=== PATIENT | female | born 2000 | race Caucasian/White ===

== ENCOUNTER 2021-01-12 01:10 | Emergency (ER) | payer OTHER, SELFPAY ==
--- NOTE | ~2021-01-12 | US_ITS ---
EXAMINATION: US pelvic complete w TV EXAM DATE: 01/12/2021 05:03 INDICATION: Right adnexal pain, r/o torsion pelvic pain . TECHNIQUE: Pelvic transabdominal and transvaginal sonogram was performed. There are multiple graysca le and Doppler images available for interpretation. Correlation is made to CT abdomen pelvis same pepito e. FINDINGS: Uterus measures 8.1 x 8.2 x 4.9 cm, is anteverted and morphologically normal. Endometrial stripe measures 7 mm, within normal limits. There is no free pelvic fluid. Right adnexa: The ovary measures 3.6 x 5.3 x 3.7 cm, with a complex cystic hypoechoic lesion without vascularity demonstrated measuring 3.4 x 3.4 x 3.3 cm, appearance most consistent with hemorrhagic cy st. Ovarian vascular flow confirmed. Left adnexa: The ovary measures 2.1 x 1.4 x 2.0 cm and is morphologically normal. Ovarian vascular fl ow confirmed. IMPRESSION: Complex cystic right ovarian lesion, most likely hemorrhagic cyst. Reviewed, dictated and finalized at location A. PAINTER
--- NOTE | ~2021-01-12 | CT_ITS ---
EXAMINATION: CT abdomen pelvis w con EXAM DATE: 01/12/2021 02:55 INDICATION: RLQ pain . TECHNIQUE: Spiral CT of the abdomen and pelvis was performed following intravenous injection of 100 m L Omnipaque 350. Axial, coronal and sagittal images were reviewed. The dose-length product (DLP) fo r this examination was 168.45 mGy-cm. The exposure was tailored according to patient size (auto mA e xposure control), and iterative reconstruction (ASIR) was used as additional dose reduction technique . There is no prior study for comparison. FINDINGS: There is mild nonspecific periportal edema, consider correlating with liver enzymes. The l iver, spleen, adrenal glands and pancreas are otherwise unremarkable. Gallbladder is unremarkable. No biliary obstruction. Portal and splenic veins are patent. Kidneys enhance symmetrically. There is no hydronephrosis. The uterus is anteverted and morphologically normal. There is a right ovarian 4 cm hypoechoic cystic lesion, statistically most likely hemorrhagic cyst. Consider follow-up pelvic sonogram. Small free pelvic fluid. The bladder is unremarkable. There is no retroperitoneal or pelv ic lymphadenopathy. The appendix is normal. The stomach and small bowel are unremarkable. There is moderate amount of c olonic stool. No free intraperitoneal gas. The heart is normal in size. There are no pericardial or pleural effusions. The lung bases are unremarkable. There are no significant osseous abnormalit ies identified. IMPRESSION: 1. Right ovarian 4 cm cystic lesion statistically most likely hemorrhagic cyst. Consider follow-up p elvic sonogram in 6 weeks. 2. Normal appendix. Reviewed, dictated and finalized at location A. ANICAL FIELD ENGINEER IMPRESSION: 1. Right ovarian 4 cm cystic lesion statistically most likely hemorrhagic cyst . Consider follow-up pelvic sonogram in 6 weeks. 2. Normal appendix.
[2021-01-12 01:25] VITALS: BP 114/69; PULSE 82; RESP 16; TEMP 36.7; O2SAT 100
[2021-01-12] MEDS: SODIUM CHLORIDE 0.9% IV 1,000 ML 999 ML IV CONT (02:06)
[2021-01-12] MEDS: MORPHINE SULFATE (*CRX) 4 MG/ML INJ IV PUSH (02:06)
[2021-01-12] MEDS: ONDANSETRON INJ 4 MG/2 ML VIAL IV PUSH (02:06)
[2021-01-12 02:30] VITALS: BP 91/55; PULSE 68; RESP 16; O2SAT 100
[2021-01-12 02:30] LABS: Basophils Absolute Auto 0.1 K/mm3 (0.0-0.1); Basophils Percent Auto 0.7 % (0.2-1.2); Eosinophils Absolute Auto 0.2 K/mm3 (0-0.3); Eosinophils Percent Auto 2.7 % (0-4.4); Hematocrit 40.9 % (37.0-47.0); Hemoglobin 13.5 g/dL (12.0-15.0); Immature Granulocyte Absolute 0.02 K/mm3 (0.00-0.031); Immature Granulocyte Percent A 0.3 % (0-0.5); Lymphocytes Absolute Auto 2.85 K/mm3 (0.9-3.2); Mean Corpuscular Hemoglobin 30.4 pg (26-34); Mean Corpuscular Volume 92.1 fl (80-100); Mean Platelet Volume 10.9 fl (7.4-10.4); Monocytes Absolute Auto 0.8 K/mm3 (0.1-0.6); Monocytes Percent Auto 11.4 % (2.6-8.5); Neutrophils Absolute Auto 2.9 K/mm3 (1.3-6.7); Neutrophils Percent Auto 42.9 % (45.5-73.1); Platelet Count Result 234 k/mm3 (150-375); Red Blood Count 4.44 M/mm3 (4.2-5.4); Red Cell Distribution Width 12.1 % (11.5-14.5); White Blood Count 6.8 K/mm3 (4.5-10.0)
[2021-01-12 02:32] LABS: Add Urine Microscopic? NO; Appearance Urine Clear (Clear); Bilirubin Urine Negative (Negative); Blood Urine Negative (Negative); Color Urine Straw (Yellow); Glucose Urine UA Negative (Negative); Ketones Urine Negative (Negative); Leukocyte Esterase Ur Negative LEU/UL (Negative); Nitrate Urine Negative (Negative); Protein Urine Negative (Negative); Specific Grav Ur 1.009 (1.001-1.035); Urobilinogen Urine Negative mg/dL (<2.0)
[2021-01-12 02:35] LABS: Anion Gap 4 mmol/L (8-16); Blood Urea Nitrogen 12 mg/dL (8-21); Calcium 9.3 mg/dL (8.9-10.7); Carbon Dioxide 28 mmol/L (22-30); Chloride 105 mmol/L (98-107); Estimated CRCL calculation 93 ml/min; Estimated Glomerular Filt Rate > 60; Glucose 80 mg/dL (65-105); Potassium 3.8 mmol/L (3.4-5.0); Sodium 137 mmol/L (134-143)
[2021-01-12 03:00] VITALS: BP 103/64; PULSE 75; RESP 16; O2SAT 100
[2021-01-12 04:00] VITALS: BP 102/60; PULSE 88; RESP 16; O2SAT 100
[2021-01-12 05:00] VITALS: BP 108/71; PULSE 98; RESP 16; O2SAT 78
--- NOTE | 2021-01-12 05:27 | ED.GENADULT ---
HPI - General Adult General Chief complaint: Abdominal Pain Stated complaint: abd pain Time Seen by Provider: 01/12/21 01:30 History of Present Illness HPI narrative: Patient is a 20-year-old female who presents ER with right lower quadrant pain. Increasing over the last couple days. Worse with any type of movement this time especially with lying down and twisting. Worse with sexual activity. No vaginal discharge or bleeding. No nausea or vomiting. No radiation of the pain. Patient reports she does have history of ovarian cysts but this feels more intense. No diarrhea. Related Data Allergies Allergy/AdvReac Type Severity Reaction Status Date / Time amoxicillin Allergy Unknown Verified 03/04/17 19:55 Sulfa (Sulfonamide Allergy Unknown Verified 03/04/17 19:55 Antibiotics) Review of Systems Review of Systems: All systems reviewed & are unremarkable except as noted in HPI and below Constitutional: Constitutional: Denies chills, Denies fever(s) and Denies weakness ENT: Denies nasal congestion and Denies sore throat Cardiovascular: Cardiovascular: Denies chest pain, Denies rapid heart rate and Denies radiating jaw, neck or arm pain Respiratory: Respiratory: Denies cough and Denies dyspnea Gastrointestinal: Gastrointestinal: Reports abdominal pain, Denies diarrhea, Denies nausea and Denies vomiting Genitourinary: Genitourinary: Denies abnormal vaginal bleeding, Denies dysuria and Denies urinary incontinence PMFSH Past Medical History Medical History (Updated 01/12/21 @ 06:11 by Jasvir Nesbitt MD) Anxiety Depression Ovarian cyst Surgical History Surgical History (Updated 01/12/21 @ 05:32 by Jasvir Nesbitt MD) No pertinent past surgical history Social History Social History (Updated 01/12/21 @ 05:32 by Jasvir Nesbitt MD) Smoking status: Never smoker Exam Narrative: Exam Narrative: GENERAL: Uncomfortable-appearing, well-nourished, and in no acute distress. HEAD: Normocephalic, atraumatic. ENT: Mucous membranes moist. CHEST: Clear to auscultation. No respiratory distress. HEART: Regular rate and rhythm. Normal peripheral pulses. ABDOMEN: Soft, right lower quadrant tenderness with guarding seems closer to McBurney's point than the pelvis, nondistended, normal active bowel sounds. EXTREMITIES: Normal range of motion. No edema. SKIN: Warm, dry, no rash. NEURO: Alert and oriented x3. Course Course Emergency Course: Patient informed results. Discharge home with pain control. 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 Vital Signs Vital signs: Vital Signs Temperature 98.1 F 01/12/21 01:25 Pulse Rate 82 01/12/21 01:25 Respiratory Rate 16 01/12/21 01:25 Blood Pressure 114/69 01/12/21 01:25 Pulse Oximetry 100 01/12/21 01:25 Temperature 98.1 F 01/12/21 01:25 Pulse Rate 98 01/12/21 05:00 Respiratory Rate 16 01/12/21 05:00 Blood Pressure 108/71 01/12/21 05:00 Pulse Oximetry 78 L 01/12/21 05:00 Medical Decision Making Vital Signs Vital Signs: Vital Signs Temperature 98.1 F 01/12/21 01:25 Pulse Rate 82 01/12/21 01:25 Respiratory Rate 16 01/12/21 01:25 Blood Pressure 114/69 01/12/21 01:25 Pulse Oximetry 100 01/12/21 01:25 Temperature 98.1 F 01/12/21 01:25 Pulse Rate 98 01/12/21 05:00 Respiratory Rate 16 01/12/21 05:00 Blood Pressure 108/71 01/12/21 05:00 Pulse Oximetry 78 L 01/12/21 05:00 Lab Data Result diagrams: 01/12/21 02:03 01/12/21 02:03 Labs: Lab Results 01/12/21 01/12/21 01/12/21 Range/Units 02:03 02:03 02:03 WBC 6.8 (4.5-10.0) K/mm3 RBC 4.44 (4.2-5.4) M/mm3 Hgb 13.5 (12.0-15.0) g/dL Hct 40.9 (37.0-47.0) % MCV 92.1 (80-100) fl MCH 30.4 (26-34) pg MCHC 33.0 (32-36) g/dl RDW 12.1 (11.5-14.5) % Plt Count 234 (150-375) k/mm3 MPV 10.9 H (7.4-10.4) fl Immature Gran % (Auto) 0.3 (0-0.5) % Neut % (Auto) 42.9 L (45.5-73
[2021-01-12 06:21] VITALS: BP 106/64; PULSE 71; RESP 16; TEMP 36.7; O2SAT 99
== END 2021-01-12 06:22 | disposition home or self-care (01) ==
PROVIDERS: Emergency Provider Emergency Medicine; PCP Pediatrics
DX: N83.201 Unspecified ovarian cyst, right side (principal)
CPT/HCPCS: 36415; 74177; 76830; 76856; 80048; 81003; 81025; 85025; 96361; 96374; 96375; 99284; J2270; J2405; J7030; Q9967

== ENCOUNTER 2021-05-23 23:50 | Emergency (ER) | payer OTHER, SELFPAY ==
--- NOTE | ~2021-05-23 | CT_ITS ---
EXAMINATION: CT abdomen pelvis w con DATE: 05/24/2021 01:21 INDICATION: Left flank pain. Left lower quadrant abdominal pain. TECHNIQUE: Computed tomography (CT) of the abdomen and pelvis was performed with 100 mL Omnipaque 350 intravenous contrast. Automated exposure control and iterative reconstruction technique were employe d. The dose-length product was 177.71 mGy-cm. COMPARISON: CT abdomen and pelvis 01/12/2021 FINDINGS: The visualized portions of the lung bases are clear without pneumonia or pleural effusion. The heart size is normal. No pericardial effusion. The liver, gallbladder, spleen, pancreas, adrenal glands, and kidneys are normal. There are no dilated loops of bowel. There are phleboliths in the luis endix, which is normal in size. There are no pathologically enlarged lymph nodes. There is physiologi c fluid in the pelvis. The bones are unremarkable. IMPRESSION: 1. No etiology for the patient's symptoms. Reviewed, dictated and finalized at location A.
[2021-05-24 00:27] VITALS: BP 105/68; PULSE 68; RESP 18; TEMP 36.7; O2SAT 100
--- NOTE | 2021-05-24 00:39 | ED.ABDPAIN ---
HPI - Abdominal Pain General Chief Complaint: Abdominal Pain Stated Complaint: tightness and sharp pain L Q to back Time Seen by Provider: 05/24/21 00:38 History of Present Illness HPI narrative: Diffuse left flank and abdominal pain for the past 2 days. Feels like cramping. Constant. Associated with nausea. She has a h/o of abdominal pain attributed to gas. She thought this was the same, but it has been worse and more persistent. Additionally she does report urinary frequency. She was seen here 4 months ago and diagnosed with ovarian cyst. Recent follow-up US was negative. Related Data Allergies Allergy/AdvReac Type Severity Reaction Status Date / Time amoxicillin Allergy Unknown Other Verified 05/24/21 00:38 Sulfa (Sulfonamide Allergy Unknown Other Verified 05/24/21 00:38 Antibiotics) Review of Systems Review of Systems: All systems reviewed & are unremarkable except as noted in HPI and below Constitutional: Constitutional: Denies fever(s) Cardiovascular: Cardiovascular: Denies chest pain Respiratory: Respiratory: Denies dyspnea Gastrointestinal: Gastrointestinal: Reports as per HPI Genitourinary: Genitourinary: Denies abnormal vaginal bleeding and Denies vaginal discharge Musculoskeletal: Musculoskeletal: Denies back pain Neurologic: Reports system reviewed and no additional complaints, except as documented Psychiatric: Psychiatric: Reports anxiety [facility] Past Medical History Medical History Anxiety Depression Ovarian cyst Surgical History Surgical History No pertinent past surgical history Social History Social History Smoking status: Never smoker Exam Const: General: no acute distress Orientation/consciousness: patient oriented x3 HENMT: Head: normal to inspection Neck: Neck: normal visual inspection Resp: Effort & Inspection: normal respiratory effort Auscultation: clear to auscultation bilaterally, no rales, no rhonchi and no wheezes Cardio: Jugular venous distension: no JVD Rate: regular rate Rhythm: regular rhythm Heart sounds: no murmurs GI: Inspection: non-distended GI Palp: Yes Soft to palpation, Yes Tenderness to palpation present (GI) (LLQ), No Guarding due to palpation present (GI), No Palpable mass present and No Rebound tenderness present Skin: General skin exam: normal color Neuro: General: patient oriented x3 and moves all extremities Speech: normal speech Extrem: General: no edema Psych: Appearance: well kempt Affect: Anxious affect present Course Vital Signs Vital signs: Vital Signs Temperature 36.7 C 05/24/21 00:27 Pulse Rate 68 05/24/21 00:27 Respiratory Rate 18 05/24/21 00:27 Blood Pressure 105/68 05/24/21 00:27 Pulse Oximetry 100 05/24/21 00:27 Temperature 36.7 C 05/24/21 00:27 Pulse Rate 98 05/24/21 01:50 Respiratory Rate 18 05/24/21 01:50 Blood Pressure 110/74 05/24/21 01:50 Pulse Oximetry 100 05/24/21 01:50 MDM - Abdominal Pain MDM Narrative Medical decision making narrative: UA contaminated, but given high number of cells could likely represent infection. Given history IBS is also a strong possibility. dicyclomine did seem to help. Differential Diagnosis Differential diagnosis: Likely calculus of kidney, constipation, pancreatitis and other (UTI/pyelo) Medical Records Attestation: I reviewed the patient's medical records. Lab Data Attestation: I reviewed the patient's lab results. Result diagrams: 05/24/21 00:41 05/24/21 00:41 Labs: Lab Results 05/24/21 05/24/21 05/24/21 Range/Units 00:41 00:41 00:42 WBC 10.4 H (4.5-10.0) K/mm3 RBC 4.58 (4.2-5.4) M/mm3 Hgb 13.9 (12.0-15.0) g/dL Hct 42.9 (37.0-47.0) % MCV 93.7 (80-100) fl MCH 30.3 (26-34) pg MCHC 32.4 (32-36) g/d
[2021-05-24 00:49] LABS: Basophils Percent Auto 0.4 % (0.2-1.2); Eosinophils Absolute Auto 0.1 K/mm3 (0-0.3); Hematocrit 42.9 % (37.0-47.0); Hemoglobin 13.9 g/dL (12.0-15.0); Immature Granulocyte Absolute 0.04 K/mm3 (0.00-0.031); Immature Granulocyte Percent A 0.4 % (0-0.5); Lymphocytes Absolute Auto 2.16 K/mm3 (0.9-3.2); Lymphocytes Percent Auto 20.8 % (18.3-44.2); Mean Corpuscular HGB Conc 32.4 g/dl (32-36); Mean Corpuscular Hemoglobin 30.3 pg (26-34); Mean Corpuscular Volume 93.7 fl (80-100); Mean Platelet Volume 10.6 fl (7.4-10.4); Monocytes Absolute Auto 0.7 K/mm3 (0.1-0.6); Monocytes Percent Auto 6.6 % (2.6-8.5); Neutrophils Absolute Auto 7.4 K/mm3 (1.3-6.7); Neutrophils Percent Auto 70.8 % (45.5-73.1); Platelet Count Result 255 k/mm3 (150-375); Red Blood Count 4.58 M/mm3 (4.2-5.4); Red Cell Distribution Width 12.1 % (11.5-14.5); White Blood Count 10.4 K/mm3 (4.5-10.0)
[2021-05-24 00:56] LABS: Add Urine Microscopic? YES; Appearance Urine Cloudy (Clear); Bacteria Urine Trace /hpf; Bilirubin Urine Negative (Negative); Blood Urine 2+ (Negative); Color Urine Yellow (Yellow); Glucose Urine UA Negative (Negative); Ketones Urine Negative (Negative); Leukocyte Esterase Ur 3+ LEU/UL (Negative); Mucus Urine Rare /lpf; Nitrate Urine Negative (Negative); Protein Urine 2+ mg/dL (Negative); RBC Urine 51-75 /hpf (0-2); Specific Grav Ur 1.005 (1.001-1.035); Squamous Epithelial Cell Urine Moderate /hpf (Few); Urobilinogen Urine Negative mg/dL (<2.0); WBC Clumps Urine Present /HPF; WBC Urine >75 /hpf
[2021-05-24 00:58] LABS: Alanine Aminotransferase 14 U/L (4-35); Albumin Level 4.5 g/dL (3.7-5.6); Alkaline Phosphatase 58 U/L (45-116); Anion Gap 9 mmol/L (8-16); Aspartate Amino Transferase 22 U/L (14-36); Bilirubin,Total 0.7 mg/dL (0.2-1.3); Blood Urea Nitrogen 6 mg/dL (8-21); Calcium 9.6 mg/dL (8.9-10.7); Carbon Dioxide 27 mmol/L (22-30); Chloride 103 mmol/L (98-107); Estimated CRCL calculation 91 ml/min; Estimated Glomerular Filt Rate > 60; Glucose 95 mg/dL (65-105); Lipase 53 U/L (23-300); Potassium 3.6 mmol/L (3.4-5.0); Sodium 139 mmol/L (134-143)
[2021-05-24] MEDS: DICYCLOMINE HCL INJ 20 MG/2 ML VIAL IM (01:06)
[2021-05-24] MEDS: SODIUM CHLORIDE 0.9% IV 1,000 ML 999 ML IV CONT (01:06)
[2021-05-24 01:50] VITALS: BP 110/74; PULSE 98; RESP 18; O2SAT 100
== END 2021-05-24 03:37 | disposition home or self-care (01) ==
PROVIDERS: Emergency Medicine; Emergency Provider Emergency Medicine; PCP Pediatrics
DX: N39.0 Urinary tract infection, site not specified (principal); R10.32 Left lower quadrant pain
CPT/HCPCS: 36415; 74177; 80053; 81001; 81025; 83690; 85025; 87077; 87086; 87088; 87186; 96361; 96365; 96372; 99284; J0500; J0696; J7030; Q9967

== ENCOUNTER 2021-10-25 12:56 | Outpatient (RCR) | payer OTHER, SELFPAY ==
[2021-10-25 13:50] LABS: Beta HCG Quantitative < 2.39 mIU/ML
== END 2022-01-23 23:59 | disposition home or self-care (01) ==
LOC: ANHLAB 12:56
PROVIDERS: PCP Pediatrics; Visit Provider Obstetrics & Gynecology
DX: O26.859 Spotting complicating pregnancy, unspecified trimester (principal); Z3A.00 Weeks of gestation of pregnancy not specified
CPT/HCPCS: 36415; 84702; 85461

== ENCOUNTER 2021-12-05 16:14 | Emergency (ER) | payer OTHER, SELFPAY ==
[2021-12-05 16:26] VITALS: BP 109/59; PULSE 86; RESP 18; TEMP 37.3; O2SAT 99
--- NOTE | 2021-12-05 16:34 | ED.URI ---
HPI - URI/Sore Throat General Chief Complaint: Upper Respiratory Infection Stated Complaint: Sinus Pressure Time Seen by Provider: 12/05/21 16:35 Source: patient, family, RN notes reviewed and old records reviewed Mode of arrival: ambulatory Limitations: no limitations History of Present Illness HPI Narrative: 21-year-old female presents to the [facility] with complaints of sinus pain and pressure for 3 weeks No treatment prior to arrival Denies fevers. MD elicited complaint: rhinorrhea and nasal congestion Related Data Home Medications Medication Instructions Recorded Confirmed citalopram mg 12/05/21 norgestimate-ethinyl estradiol tablet 12/05/21 [Estarylla] Allergies Allergy/AdvReac Type Severity Reaction Status Date / Time amoxicillin Allergy Unknown Other Verified 05/24/21 00:38 Sulfa (Sulfonamide Allergy Unknown Other Verified 05/24/21 00:38 Antibiotics) Review of Systems Review of Systems: All systems reviewed & are unremarkable except as noted in HPI and below Constitutional: Constitutional: Reports no additional constitutional complaints, Denies chills, Denies fever(s) and Denies headache(s) Eyes: Eyes: Reports no additional eye complaints ENT: Reports as per HPI, Denies vertigo, Denies dizziness, Denies headache(s), Reports nasal congestion and Denies sore throat Cardiovascular: Cardiovascular: Reports no additional cardiovascular complaints, Denies chest pain, Denies syncope, Denies rapid heart rate and Denies dyspnea Respiratory: Respiratory: Reports no additional respiratory complaints, Denies cough, Denies dyspnea and Denies wheezing Gastrointestinal: Gastrointestinal: Reports no additional gastrointestinal complaints, Denies abdominal pain, Denies diarrhea, Denies nausea and Denies vomiting Musculoskeletal: Musculoskeletal: Reports no additional musculoskeletal complaints and Denies numbness Integumentary/Breasts: Skin/Breast: Reports system reviewed and no additional complaints, except as docu Neurologic: Reports system reviewed and no additional complaints, except as documented, Denies vertigo, Denies dizziness, Denies syncope, Denies headache(s), Denies focal weakness and Denies numbness Psychiatric: Psychiatric: Reports no additional psychiatric complaints Allergic/Immunologic: Allergic/Immunologic: Reports no additional allergic/immunologic complaints and Denies wheezing PMFSH Past Medical History Medical History Anxiety Depression Ovarian cyst Surgical History Surgical History No pertinent past surgical history Social History Social History Smoking status: Never smoker Comments At the time of my signature, I reviewed and agree with the nursing past medical, surgical, social, and family history. There is no relevant family history pertinent to the patient complaint. Exam Const: General: cooperative, healthy appearing, no acute distress, well developed and alert Nutritional Appearance: well nourished Orientation/consciousness: patient oriented x3 Limitations: no limitations HENMT: Head: normal to inspection Eyes: Conjunctivae: conjunctivae normal Pupils: Equal, round and reactive pupils present Neck: Neck: normal visual inspection, no lymphadenopathy and no meningeal signs Chest: Chest palpation & inspection: normal inspection of the chest Resp: Effort & Inspection: normal respiratory effort and no use of accessory muscles Auscultation: clear to auscultation bilaterally, no crackles, no rales, no rhonchi and no wheezes Cardio: Rate: regular rate Rhythm: regular rhythm : General: Yes no CVA tenderness Back/Spine/Pelvis: Back: no CVA tenderness Skin: General skin exam: normal color Rashes: no rashes Wounds: no wounds Neuro: General: patient oriented x3, moves all extremities, no meningeal signs and n
== END 2021-12-05 17:03 | disposition home or self-care (01) ==
PROVIDERS: Emergency Provider Nurse Practitioner
DX: J32.9 Chronic sinusitis, unspecified (principal); F41.9 Anxiety disorder, unspecified; F32.9 Major depressive disorder, single episode, unspecified
CPT/HCPCS: 99213; G0463

== ENCOUNTER 2022-05-09 22:27 | Emergency (ER) | payer OTHER, SELFPAY ==
--- NOTE | ~2022-05-09 | XR_ITS ---
EXAMINATION: XR chest 2V DATE: 05/09/2022 22:54 INDICATION: Chest tightness TECHNIQUE: PA and lateral views of the chest are obtained. COMPARISON: None available FINDINGS: The lungs are free of acute opacities. No pleural effusion or pneumothorax. The cardiomedia stinal silhouette is normal. The visualized bones and soft tissues are unremarkable. IMPRESSION: 1. No acute cardiopulmonary abnormality. Reviewed, dictated and finalized at location F.
[2022-05-09 22:29] VITALS: BP 147/85; PULSE 92; RESP 18; TEMP 37.1; O2SAT 100
--- NOTE | 2022-05-09 22:32 | ECG_ITS ---
Measurements Intervals Bird In Hand Rate: 91 P: 69 DE: 120 QRS: 71 QRSD: 85 T: 59 QT: 348 QTc: 429 Interpretive Statements SINUS RHYTHM NORMAL ECG Electronically Signed On 05-10-2022 7:48:19 CDT by Lico Henriquez D.O.
--- NOTE | 2022-05-09 22:43 | PC.NURSE ---
pt to xr in wheelchair
[2022-05-09 22:49] LABS: Basophils Absolute Auto 0.1 K/mm3 (0.0-0.1); Basophils Percent Auto 0.8 % (0.2-1.2); Eosinophils Absolute Auto 0.2 K/mm3 (0-0.3); Eosinophils Percent Auto 3.5 % (0-4.4); Hematocrit 43.9 % (37.0-47.0); Hemoglobin 14.2 g/dL (12.0-15.0); Immature Granulocyte Absolute 0.01 K/mm3 (0.00-0.031); Immature Granulocyte Percent A 0.2 % (0-0.5); Lymphocytes Absolute Auto 2.26 K/mm3 (0.9-3.2); Lymphocytes Percent Auto 37.8 % (18.3-44.2); Mean Corpuscular HGB Conc 32.3 g/dl (32-36); Mean Corpuscular Volume 92.8 fl (80-100); Mean Platelet Volume 10.6 fl (7.4-10.4); Monocytes Absolute Auto 0.4 K/mm3 (0.1-0.6); Monocytes Percent Auto 7.4 % (2.6-8.5); Neutrophils Percent Auto 50.3 % (45.5-73.1); Platelet Count Result 269 k/mm3 (150-375); Red Blood Count 4.73 M/mm3 (4.2-5.4); Red Cell Distribution Width 12.2 % (11.5-14.5)
[2022-05-09 22:59] LABS: Alanine Aminotransferase 19 U/L (6-35); Albumin Level 4.5 g/dL (3.5-5.1); Alkaline Phosphatase 53 U/L (38-126); Anion Gap 9 mmol/L (8-16); Aspartate Amino Transferase 22 U/L (14-36); Bilirubin,Total 0.4 mg/dL (0.2-1.3); Blood Urea Nitrogen 11 mg/dL (7-17); Carbon Dioxide 24 mmol/L (22-30); Chloride 106 mmol/L (98-107); Estimated CRCL calculation 87 ml/min; Estimated Glomerular Filt Rate > 60; Glucose 108 mg/dL (65-110); INR 1.2; Lipase 74 U/L (23-300); Potassium 3.7 mmol/L (3.4-5.0); Prothrombin Time 14.5 Seconds (11.1-14.7); Sodium 139 mmol/L (137-145)
[2022-05-09 23:00] LABS: Partial Thromboplastin Time 31.8 SECONDS (22.3-36.8)
[2022-05-09 23:10] LABS: Troponin I < 0.012 ng/mL (0.000-0.034)
--- NOTE | 2022-05-09 23:51 | ED.CHESTPAIN ---
HPI - Chest Pain General Chief Complaint: Chest Pain Stated Complaint: chest tightness, right breast pain Time Seen by Provider: 05/09/22 23:42 History of Present Illness HPI narrative: 21-year-old female presents here with sensation of chest pain and chest tightness and difficulty breathing, she states that it feels like her anxiety attacks but she is also concerned because she has some tingling in the fourth and fifth digits of her right arm, and some pain in her right shoulder, she states that for her work she does sit in one spot and does put a lot of pressure on her right arm, she does also sleep on her right side. Related Data Home Medications Medication Instructions Recorded Confirmed norgestimate 0.25 mg-ethinyl tablet 12/05/21 12/18/21 estradiol 35 mcg tablet (Estarylla) hydroxyzine HCl 10 mg tablet 10 mg PO TID PRN 12/18/21 12/18/21 Allergies Allergy/AdvReac Type Severity Reaction Status Date / Time Sulfa (Sulfonamide Allergy Unknown Other Verified 12/18/21 13:21 Antibiotics) Penicillins AdvReac Intermediate Unknown Verified 12/18/21 13:21 Review of Systems Review of Systems: CONST: No fever. HEENT: No sore throat C/V: Chest tightness RESP: Some shortness of breath GI: No nausea or vomiting : No dysuria. M/S: Right shoulder pain SKIN: No rash. NEURO: Tingling from elbow down to her fourth and fifth digits on the right PSYCH: Anxiety PMFSH Past Medical History Medical History Anxiety Depression Gastritis Ovarian cyst Surgical History Surgical History No pertinent past surgical history Family History Family History Sibling Attention deficit disorder Diabetes mellitus Grandparent Diabetes mellitus Acute myocardial infarction Cerebrovascular accident Father Alcohol abuse Social History Social History Smoking status: Current every day smoker (vape) Tobacco type: e-cigarettes/vaping Alcohol intake: former Substance use: never Substance use type: does not use Gender identity (if verbalized by the patient): Female Exam Narrative: EXAMINATION OF ORGAN SYSTEMS/BODY AREAS: Constitutional: Vital signs per nursing GENERAL: Initially quite tearful and anxious but alert HEAD: Normal with no signs of head trauma. EYES: EOMI, conjunctiva normal ENT: Hearing grossly intact LUNGS: Nonlabored breathing. Clear to auscultation bilaterally. HEART: [Regular rate and rhythm] ABD: [Soft], nondistended EXT: Normal range of motion, some tingling in the ulnar distribution SKIN: [No rashes or lesions.] NEURO: [Alert and oriented x 3. No weakness but some tingling in the ulnar distribution.] PSYCH: Anxious affect Course Course Emergency Course: 21-year-old female presents here with possible anxiety attack, she is endorsing some chest pain and difficulty breathing, also some tingling in her right arm and right shoulder pain. Vital signs are stable, on exam she is initially quite anxious and tearful but with clear lungs, normal range of motion and strength, and some tingling that is reproducible in the ulnar distribution. I suspect most likely ulnar neuropathy, doubt CVA without risk factors and given the distribution of symptoms, doubt ACS/[place] without risk factors and given her age, most likely anxiety/panic attack, unlikely pneumonia or pneumothorax with normal vitals. EKG and chest x-ray normal here, labs including troponin negative, I did reassure her and she is now resting comfortably, feel less anxious, I discussed my thoughts that she likely had ulnar neuropathy and her symptoms seem more consistent with musculoskeletal pain and anxiety than any cardiac etiology, but I did give her strict return precautions and asked her to follow-up with her primary doctor Vital Signs Leyla
[2022-05-10 00:15] VITALS: O2SAT 100
[2022-05-10 00:16] VITALS: BP 103/59; PULSE 76; RESP 16; O2SAT 100
== END 2022-05-10 00:17 | disposition home or self-care (01) ==
PROVIDERS: Emergency Provider Emergency Medicine; PCP Family Medicine
DX: G56.20 Lesion of ulnar nerve, unspecified upper limb (principal); M25.511 Pain in right shoulder; F41.9 Anxiety disorder, unspecified; F17.290 Nicotine dependence, other tobacco product, uncomplicated
CPT/HCPCS: 36415; 71046; 80053; 83690; 84484; 85025; 85610; 85730; 93005; 99284

== ENCOUNTER 2022-07-25 11:04 | Emergency (ER) | payer OTHER, SELFPAY ==
[2022-07-25 11:14] VITALS: BP 96/59; PULSE 80; RESP 16; TEMP 37.4; O2SAT 98
--- NOTE | 2022-07-25 11:36 | ED.GENADULT ---
HPI - General Adult General Chief complaint: Skin/Abscess/Foreign Body Stated complaint: infected nose s/p piercing History of Present Illness HPI narrative: Patient is a 22-year-old female presents to the [facility] via POV for an evaluation of a nose problem that began 1 week ago. Additionally, she reports a septum piercing on 06/28/2022. The area is now tender, erythematous, and swollen prompting today's visit. Aspirin paste and Neosporin provided some relief. Touching the area increases tenderness. Related Data Home Medications Medication Instructions Recorded Confirmed norgestimate 0.25 mg-ethinyl tablet 12/05/21 12/18/21 estradiol 35 mcg tablet (Estarylla) Allergies Allergy/AdvReac Type Severity Reaction Status Date / Time Sulfa (Sulfonamide Allergy Unknown Other Verified 12/18/21 13:21 Antibiotics) Penicillins AdvReac Intermediate Unknown Verified 12/18/21 13:21 Review of Systems Review of Systems: Denies injury. Pertinent negatives fever, chills, sweats, malaise, poor p.o. intake, change in appetite, headache, LOC, dizziness, streaking, drainage, numbness, tingling, loss of sensation, foreign body sensation, deformity, sob, chest pain, and heart palpitations/murmurs. [facility] Past Medical History Medical History Anxiety Depression Gastritis Ovarian cyst Surgical History Surgical History No pertinent past surgical history Family History Family History Sibling Attention deficit disorder Diabetes mellitus Grandparent Diabetes mellitus Acute myocardial infarction Cerebrovascular accident Father Alcohol abuse Social History Social History Smoking status: Current every day smoker (vape) Tobacco type: e-cigarettes/vaping Alcohol intake: former Substance use: never Substance use type: does not use Gender identity (if verbalized by the patient): Female Comments I have reviewed and agree with the patient's past medical, surgical, social, and family hx as documented by the RN. There is no relevant family history pertinent to the presenting complaint. Exam Narrative: GENERAL: Well-appearing, well-nourished, and in no acute distress. HEAD: Normocephalic, atraumatic. No facial swelling appreciated. EYES: PERRLA and EOMI. No evidence of erythema, swelling, or drainage. ENT: Nares clear, no rhinorrhea or epistaxis.Mucous membranes moist and pink. Uvula is midline without erythema and swelling. No evidence of obstruction, petechial rash, cobblestoning, lesions, ulcers, erythema, swelling, exudates, peritonsillar abscess, tenting, or drooling. Breath odor and voice normal. NECK: Supple. No Lymphadenopathy or nuchal rigidity appreciated. CHEST: Bilateral lung harrison are clear to auscultation. No respiratory distress. No evidence of cough or pleuritic cp upon examination. HEART: Regular rate and rhythm. No murmur, gallop, or rub heard. EXTREMITIES: Normal range of motion. No edema. SKIN: Warm, dry. No evidence of cellulitis, abscess, streaking, induration, abrasions/lacerations, petechiae, hematoma, contusion, drainage, or bleeding. NEURO: No focal deficits. Alert and oriented x3. SPECIAL OBSERVATIONS: Smiling. Laughing. No evidence of discomfort. C/O of of proportion to exam. Eating XXX. Running around. Tolerates food/fluids. Course Course Level of Care: Express Care Visit Vital Signs Vital signs: Vital Signs Temperature 99.3 F 07/25/22 11:14 Pulse Rate 80 07/25/22 11:14 Respiratory Rate 16 07/25/22 11:14 Blood Pressure 96/59 L 07/25/22 11:14 Pulse Oximetry 98 07/25/22 11:14 Oxygen Delivery Room Air 07/25/22 11:14 Temperature 99.3 F 07/25/22 11:14 Pulse Rate 80 07/25/22 11:14 Respiratory Rate 16
== END 2022-07-25 11:44 | disposition home or self-care (01) ==
PROVIDERS: Emergency Provider Nurse Practitioner Family; PCP Family Medicine
DX: J34.0 Abscess, furuncle and carbuncle of nose (principal); F17.290 Nicotine dependence, other tobacco product, uncomplicated
CPT/HCPCS: 99213; G0463

== ENCOUNTER 2023-02-19 02:56 | Outpatient (CLI) | payer OTHER, SELFPAY ==
[2023-02-19 03:15] VITALS: BP 114/63; PULSE 84
[2023-02-19 03:30] VITALS: BP 103/69; PULSE 84
== END 2023-02-19 03:48 | disposition home or self-care (01) ==
LOC: ANHOBOP 03:01 → ANHOBPP 02-24 06:24
PROVIDERS: PCP Family Medicine; Visit Provider Obstetrics & Gynecology
DX: Z34.90 Encounter for supervision of normal pregnancy, unspecified, unspecified trimester (principal)
CPT/HCPCS: 59025; 99199

== ENCOUNTER 2023-03-09 18:00 | Observation (INO) | payer OTHER, MEDICAID, SELFPAY ==
[2023-03-09 18:30] VITALS: BP 122/74; PULSE 88
[2023-03-09 18:45] VITALS: BP 118/68; PULSE 92
[2023-03-09 19:00] VITALS: BP 116/74; PULSE 97
--- NOTE | 2023-03-09 19:07 | OBADM ---
This patient, Emily Cerda, admitted to the OB room OB Post 116 for observation. Patient/family oriented to hospital policies and general routines including ID bracelet, bed and alarms, visiting hours, pain management, procedures, bathroom and other care routines, personal items, smoking policy, room service/diet, and visiting hours. Patient/Family are encouraged to report perceived risks to care and to ask questions if they do not understand what they are told or what they should do.
[2023-03-09 19:40] VITALS: BP 122/74; PULSE 88; RESP 18; TEMP 36.7
[2023-03-09 20:30] LABS: Appearance Urine Clear (Clear); Bacteria Urine 1+ /hpf; Bilirubin Urine Negative (Negative); Blood Urine Negative (Negative); Color Urine Yellow (Yellow); Glucose Urine UA Trace mg/dL (Negative); Ketones Urine Negative (Negative); Leukocyte Esterase Ur Trace LEU/UL (Negative); Need Manual Microscopic Reviewed; Nitrate Urine Negative (Negative); Non Pathogenic Casts 0-2; Protein Urine Negative (Negative); RBC Urine 0-2 /hpf (0-2); Specific Grav Ur 1.008 (1.001-1.035); Squamous Epithelial Cell Urine Occasional /hpf (Few); Urobilinogen Urine 0.2 mg/dL (<2.0); pH Urine 5.5 (5.0-9.0)
[2023-03-09 20:32] LABS: Add Urine Microscopic? YES
[2023-03-09] MEDS: LACTATED RINGERS 1,000 ML 999 ML IV CONT (21:02)
[2023-03-09] MEDS: NITROFURANTOIN MONOHYD MACROCR 100 MG CAP PO (21:03)
[2023-03-09] MEDS: cefTRIAXone 1 GM VIAL IM (21:17)
[2023-03-09] MEDS: NIFEdipine 30 MG TAB.ER.24 PO (22:00)
[2023-03-09] MEDS: TERBUTALINE SULFATE 1 MG/ML VIAL 0.25 MG SUB-Q (22:00)
--- NOTE | 2023-03-30 13:23 | PM.OBTRLD ---
OB - Triage/Final Diagnosis Visit Information Comments/Additional reasons for admission: I have assessed the risk for this patient, Emily Cerda, and determined that she would benefit from observation care. Evaluation Laboratory results: Laboratory Tests 03/09/23 19:46 Urine Color Yellow Urine Appearance Clear Urine pH 5.5 Ur Specific [place] 1.008 Urine Protein Negative Urine Glucose (UA) Trace H Urine Ketones Negative Ur Blood (Man) Negative Urine Nitrate Negative Urine Bilirubin Negative Urine Urobilinogen 0.2 Add Ur Microanalysis Reviewed Leukocyte Esterase Rfl Trace H Urine RBC 0-2 Urine WBC 11-20 H Ur Squamous Epith Cells Occasional Urine Bacteria 1+ H Urine Casts 0-2 Final Diagnosis (1) False labor: Code(s): O47.9 - False labor, unspecified Status: Acute
== END 2023-03-10 01:05 | disposition home or self-care (01) ==
PROVIDERS: Admitting Provider Obstetrics & Gynecology; PCP Family Medicine; Visit Provider Obstetrics & Gynecology
DX: O47.03 False labor before 37 completed weeks of gestation, third trimester (principal); Z3A.33 33 weeks gestation of pregnancy
CPT/HCPCS: 81001; 87086; 87088; 96372; A9270; G0378; G0379; J0696; J3105; J7120

== ENCOUNTER 2023-03-15 10:06 | Observation (INO) | payer OTHER, MEDICAID, SELFPAY ==
[2023-03-15 10:28] VITALS: BP 103/67; PULSE 104
[2023-03-15 10:30] VITALS: BP 101/67; PULSE 97
[2023-03-15 10:40] VITALS: BMI 23.8
[2023-03-15 10:41] LABS: Appearance Urine Clear (Clear); Bilirubin Urine Negative (Negative); Blood Urine Negative (Negative); Color Urine Yellow (Yellow); Glucose Urine UA Negative (Negative); Ketones Urine Negative (Negative); Leukocyte Esterase Ur Negative LEU/UL (NEGATIVE); Nitrate Urine Negative (Negative); Protein Urine Negative (Negative); Specific Grav Ur 1.009 (1.001-1.035)
[2023-03-15 10:45] LABS: Add Urine Microscopic? NO
[2023-03-15] MEDS: TERBUTALINE SULFATE 1 MG/ML VIAL 0.25 MG SUB-Q (11:36)
[2023-03-15] MEDS: FLUCONAZOLE 150 MG TABLET PO (11:46)
[2023-03-15 11:59] VITALS: TEMP 36.9
[2023-03-15] MEDS: NIFEdipine 10 MG CAPSULE PO ×2 (13:22→13:45)
[2023-03-15] MEDS: FAMOTIDINE 20 MG TABLET PO (15:16)
--- NOTE | 2023-03-30 13:32 | PM.OBTRLD ---
OB - Triage/Final Diagnosis Visit Information Comments/Additional reasons for admission: I have assessed the risk for this patient, Emily Cerda, and determined that she would benefit from observation care. Evaluation Laboratory results: Laboratory Tests 03/15/23 10:31 Urine Color Yellow Urine Appearance Clear Urine pH 7.0 Ur Specific [place] 1.009 Urine Protein Negative Urine Glucose (UA) Negative Urine Ketones Negative Ur Blood (Man) Negative Urine Nitrate Negative Urine Bilirubin Negative Urine Urobilinogen 1.0 Ur Leukocyte Esterase Negative Final Diagnosis (1) False labor: Code(s): O47.9 - False labor, unspecified Status: Acute
== END 2023-03-15 15:20 | disposition home or self-care (01) ==
PROVIDERS: Admitting Provider Obstetrics & Gynecology; PCP Family Medicine; Visit Provider Obstetrics & Gynecology
DX: O47.03 False labor before 37 completed weeks of gestation, third trimester (principal); O26.893 Other specified pregnancy related conditions, third trimester; R10.9 Unspecified abdominal pain; Z3A.34 34 weeks gestation of pregnancy
CPT/HCPCS: 81003; 87086; 96372; A9270; G0378; G0379; J3105

== ENCOUNTER 2023-03-22 22:24 | Outpatient (CLI) | payer OTHER, MEDICAID, SELFPAY ==
[2023-03-22 22:45] VITALS: BP 111/74; PULSE 109
[2023-03-22 22:47] VITALS: BP 123/71; PULSE 84
[2023-03-22 23:01] VITALS: BP 116/70; PULSE 90
[2023-03-22 23:15] VITALS: BP 110/76; PULSE 95
[2023-03-22 23:30] VITALS: BP 118/67; PULSE 92
== END 2023-03-23 00:30 | disposition home or self-care (01) ==
LOC: ANHOBOP 22:30 → ANHLDR 03-30 06:21
PROVIDERS: PCP Family Medicine; Visit Provider Obstetrics & Gynecology
DX: O47.9 False labor, unspecified (principal); Z3A.00 Weeks of gestation of pregnancy not specified
CPT/HCPCS: 84112; 99199

== ENCOUNTER 2023-03-27 19:56 | Observation (INO) | payer OTHER, MEDICAID, SELFPAY ==
[2023-03-27 22:30] VITALS: BP 115/68; PULSE 92
[2023-03-27 22:45] VITALS: BP 117/66; PULSE 74
[2023-03-27 22:59] VITALS: BMI 24.9
--- NOTE | 2023-03-27 23:03 | OBADM ---
This patient, Emily Cerda, admitted to the OB room Labor/Delivery/Recovery 106 for observation. Patient/family oriented to hospital policies and general routines including ID bracelet, bed and alarms, visiting hours, pain management, procedures, bathroom and other care routines, personal items, smoking policy, room service/diet, and visiting hours. Patient/Family are encouraged to report perceived risks to care and to ask questions if they do not understand what they are told or what they should do.
--- NOTE | 2023-04-03 07:37 | PM.OBTRLD ---
OB - Triage/Final Diagnosis Visit Information Comments/Additional reasons for admission: I have assessed the risk for this patient, Emily Cerda, and determined that she would benefit from observation care. Final Diagnosis (1) False labor: Code(s): O47.9 - False labor, unspecified Status: Acute
== END 2023-03-27 23:30 | disposition home or self-care (01) ==
PROVIDERS: Admitting Provider Obstetrics & Gynecology; PCP Family Medicine; Visit Provider Obstetrics & Gynecology
DX: O47.03 False labor before 37 completed weeks of gestation, third trimester (principal); Z3A.36 36 weeks gestation of pregnancy
CPT/HCPCS: G0378; G0379

== ENCOUNTER 2023-04-08 20:20 | Observation (INO) | payer OTHER, MEDICAID, SELFPAY ==
[2023-04-08 23:47] LABS: Appearance Urine Clear (Clear); Bilirubin Urine Negative (Negative); Blood Urine Negative (Negative); Color Urine Yellow (Yellow); Glucose Urine UA Negative (Negative); Ketones Urine Negative (Negative); Leukocyte Esterase Ur Negative LEU/UL (Negative); Nitrate Urine Negative (Negative); Protein Urine Negative (Negative); Specific Grav Ur 1.007 (1.001-1.035); Urobilinogen Urine 0.2 mg/dL (<2.0)
[2023-04-08 23:50] LABS: Add Urine Microscopic? NO
[2023-04-09 00:19] VITALS: BMI 24.5
--- NOTE | 2023-04-09 00:19 | OBADM ---
This patient, Emily Cerda, admitted to the OB room Labor/Delivery/Recovery 102 for observation. Patient/family oriented to hospital policies and general routines including ID bracelet, bed and alarms, visiting hours, pain management, procedures, bathroom and other care routines, personal items, smoking policy, room service/diet, and visiting hours. Patient/Family are encouraged to report perceived risks to care and to ask questions if they do not understand what they are told or what they should do.
--- NOTE | 2023-04-10 19:01 | PM.OBTRLD ---
OB - Triage/Final Diagnosis Visit Information Date of evaluation: 04/08/23 Reason for evaluation: threatened labor Comments/Additional reasons for admission: I have assessed the risk for this patient, Emily Cerda, and determined that she would benefit from observation care. Evaluation Laboratory results: Laboratory Tests 04/08/23 23:40 Urine Color Yellow Urine Appearance Clear Urine pH 6.0 Ur Specific [place] 1.007 Urine Protein Negative Urine Glucose (UA) Negative Urine Ketones Negative Ur Blood (Man) Negative Urine Nitrate Negative Urine Bilirubin Negative Urine Urobilinogen 0.2 Leukocyte Esterase Rfl Negative
== END 2023-04-09 00:28 | disposition home or self-care (01) ==
PROVIDERS: Admitting Provider Obstetrics & Gynecology; PCP Family Medicine; Visit Provider Obstetrics & Gynecology
DX: O47.1 False labor at or after 37 completed weeks of gestation (principal); Z3A.38 38 weeks gestation of pregnancy
CPT/HCPCS: 81003; G0378; G0379

== ENCOUNTER 2023-04-16 12:31 | Observation (INO) | payer OTHER, MEDICAID, SELFPAY ==
[2023-04-16 13:00] VITALS: RESP 18; TEMP 36.9
[2023-04-16 14:20] VITALS: BMI 26.7
--- NOTE | 2023-04-16 15:01 | LDADM ---
This patient, Emily Cerda, was admitted to Labor/Delivery/Recovery 105 on 04/16/23 at 12:31. Plans for labor, pain management and were discussed with patient. Patient/family oriented to hospital policies and general routines including ID bracelet, bed and alarms, visiting hours, pain management, procedures, bathroom and other care routines, personal items, smoking policy, room service/diet and guest tray routines, security routines, and visiting hours. Patient/Family are encouraged to report perceived risks to care and to ask questions if they do not understand what they are told or what they should do. See OBIX for further documentation.
--- NOTE | 2023-04-16 15:03 | PC.NURSE ---
Assumed care of patient at 1350 from Torsten Mcgregor RN. Allowed patient to walk halls for 30 minutes before repeat cervical exam. Cervical exam was unchanged from initial exam and patient is no longer azra regularly. August Mcbride CNM on unit and reviewed tracing. Verbal orders given for discharge.
--- NOTE | 2023-04-17 20:00 | PM.OBTRLD ---
OB - Triage/Final Diagnosis Visit Information Date of evaluation: 04/16/23 Reason for evaluation: threatened labor Comments/Additional reasons for admission: I have assessed the risk for this patient, Emily Cerda, and determined that she would benefit from observation care.
== END 2023-04-16 15:16 | disposition home or self-care (01) ==
PROVIDERS: Admitting Provider Obstetrics & Gynecology; PCP Family Medicine; Visit Provider Obstetrics & Gynecology
DX: O47.1 False labor at or after 37 completed weeks of gestation (principal); Z3A.39 39 weeks gestation of pregnancy
CPT/HCPCS: G0378; G0379

== ENCOUNTER 2023-04-20 05:57 | Inpatient (IN) | payer OTHER, MEDICAID, SELFPAY ==
[2023-04-20] VITALS (125 sets, daily range): BP systolic 85–147; BP diastolic 47–93; PULSE 30–153; RESP 16–18; TEMP 36.4–38.3; O2SAT 83–100; BMI 26.7
--- NOTE | 2023-04-20 06:40 | LDADM ---
This patient, Emily Cerda, was admitted to Labor/Delivery/Recovery 103 on 04/20/23 at 05:57. Plans for labor, pain management and were discussed with patient. Patient/family oriented to hospital policies and general routines including ID bracelet, bed and alarms, visiting hours, pain management, procedures, bathroom and other care routines, personal items, smoking policy, room service/diet and guest tray routines, security routines, and visiting hours. Patient/Family are encouraged to report perceived risks to care and to ask questions if they do not understand what they are told or what they should do. See OBIX for further documentation.
[2023-04-20 06:43] LABS: Basophils Percent Auto 0.4 % (0.2-1.2); Eosinophils Absolute Auto 0.1 K/mm3 (0-0.3); Eosinophils Percent Auto 1.1 % (0-4.4); Hematocrit 29.4 % (37.0-47.0); Hemoglobin 9.2 g/dL (12.0-15.0); Immature Granulocyte Absolute 0.05 K/mm3 (0.00-0.031); Immature Granulocyte Percent A 0.5 % (0-0.5); Lymphocytes Absolute Auto 1.84 K/mm3 (0.9-3.2); Lymphocytes Percent Auto 18.5 % (18.3-44.2); Mean Corpuscular HGB Conc 31.3 g/dl (32-36); Mean Corpuscular Hemoglobin 25.3 pg (26-34); Monocytes Percent Auto 9.8 % (2.6-8.5); Neutrophils Absolute Auto 6.9 K/mm3 (1.3-6.7); Neutrophils Percent Auto 69.7 % (45.5-73.1); Platelet Count Result 265 k/mm3 (150-375); Red Blood Count 3.63 M/mm3 (4.2-5.4); Red Cell Distribution Width 16.5 % (11.5-14.5)
[2023-04-20] MEDS: OXYTOCIN 30 UNITS/NS 500 ML 30 UNITS/500 ML BAG 6 UNITS IV CONT (07:02)
[2023-04-20] MEDS: LACTATED RINGERS 1,000 ML 125 ML IV CONT ×2 (07:03→09:27)
--- NOTE | 2023-04-20 07:36 | PM.IMHP ---
H&P: HPI History of Present Illness Date/Time: 04/20/23 07:36 Chief Complaint: induction of labor Narrative: aditi is a 22yo G1 at 39.4 for elective IOL. uncomplicated except by anemia, anxiety and depression and COVID during . GBS neg. Review of Systems Review of Systems: All systems reviewed & are unremarkable except as noted in HPI and below PMFSH Past Medical History Medical History Anxiety Depression Gastritis Ovarian cyst Surgical History Surgical History No pertinent past surgical history Family History Family History Sibling Attention deficit disorder Diabetes mellitus Grandparent Diabetes mellitus Acute myocardial infarction Cerebrovascular accident Father Alcohol abuse Social History Social History Smoking status: Former smoker Tobacco type: cigarettes and e-cigarettes/vaping Alcohol intake: former Substance use: never Substance use type: does not use Lack of Transportation: No Lack of Food: Never True Current Housing: I Have Housing Concerned About Future Housing: No Difficulty Paying Gas/Electric Bills: No Difficulty Paying for Meds: No Currently Unemployed: No Education: High School Diploma/GED Difficulty w/ Childcare or Family Care: No Gender identity (if verbalized by the patient): Female Spiritual care concerns: No Meds Home Medications and Allergies Home Medications Medication Instructions Recorded Confirmed Type citalopram 40 mg tablet 40 mg PO DAILY #90 tabs 02/17/23 03/31/23 Rx hydroxyzine HCl 10 mg tablet 10 mg PO DAILY 03/31/23 03/31/23 History Allergies Allergy/AdvReac Type Severity Reaction Status Date / Time Sulfa (Sulfonamide Allergy Unknown Other Verified 03/31/23 13:05 Antibiotics) Penicillins AdvReac Intermediate Unknown Verified 03/31/23 13:05 Vital Signs Vital Signs - 24 hr 04/20/23 06:19 04/20/23 06:45 04/20/23 07:00 Temperature Pulse Rate 91 85 79 Blood Pressure 123/85 113/69 126/83 Oxygen Delivery 04/20/23 07:15 04/20/23 07:30 04/20/23 06:37 Temperature Pulse Rate 76 72 Blood Pressure 122/76 115/68 Oxygen Delivery Room Air 04/20/23 06:37 Temperature 98.0 F Pulse Rate Blood Pressure Oxygen Delivery Exam Const: General: no acute distress Resp: Effort & Inspection: normal respiratory effort Auscultation: clear to auscultation bilaterally Cardio: Rate: regular rate Rhythm: regular rhythm GI: GI Palp: Yes Soft to palpation Extrem: General: normal to inspection H&P: Results Labs Labs: Short CBC 04/20/23 Range/Units 06:20 WBC 10.0 (4.5-10.0) K/mm3 Hgb 9.2 L D (12.0-15.0) g/dL Hct 29.4 L (37.0-47.0) % Plt Count 265 (150-375) k/mm3 Assessment and Plan Assessment and plan (1) Encounter for elective induction of labor: Code(s): Z34.90 - Encounter for supervision of normal , unspecified, unspecified trimester Status: Acute Plan GBS neg. FHT category 1 SVE 3.5/70/-2 AROM clear pitocin per protocol anemia- starting at 9.2. likely IV iron
[2023-04-20] MEDS: ONDANSETRON INJ 4 MG/2 ML VIAL IV PUSH (08:33)
[2023-04-20] MEDS: fentaNYL CITRATE INJ (*CRX) 100 MCG/2 ML VIAL 50 MCG IV PUSH (09:00)
--- NOTE | 2023-04-20 09:22 | WPDANESEPPF ---
Anes - Initial Pre Proc Eval Procedure: labor epidural Date/Time: 04/20/23 09:22 Surgeon: Monica Luna MD Pre Op Diagnosis: labor pain Pre Op Diagnosis: Induction of Labor Patient Data Age: 22 Gender: F Height: 1.65 m Weight: 73 kg Last Vital Signs Temp 36.7 C 04/20/23 06:37 Pulse 68 04/20/23 09:20 BP 99/59 L 04/20/23 09:20 Pulse Ox 99 04/20/23 09:20 O2 Del Method Room Air 04/20/23 06:37 Allergies Allergy/AdvReac Type Severity Reaction Status Date / Time Sulfa (Sulfonamide Allergy Unknown Other Verified 03/31/23 13:05 Antibiotics) Penicillins AdvReac Intermediate Unknown Verified 03/31/23 13:05 Home Medications Medication Instructions Recorded Confirmed Type citalopram 40 mg tablet 40 mg PO DAILY #90 tabs 02/17/23 03/31/23 Rx hydroxyzine HCl 10 mg tablet 10 mg PO DAILY 03/31/23 03/31/23 History Laboratory Tests 04/20/23 06:20 WBC 10.0 K/mm3 (4.5-10.0) RBC 3.63 L M/mm3 (4.2-5.4) Hgb 9.2 L D g/dL (12.0-15.0) Hct 29.4 L % (37.0-47.0) MCV 81.0 fl (80-100) MCH 25.3 L pg (26-34) MCHC 31.3 L g/dl (32-36) RDW 16.5 H % (11.5-14.5) Plt Count 265 k/mm3 (150-375) MPV 11.0 H fl (7.4-10.4) Immature Gran % (Auto) 0.5 % (0-0.5) Neut % (Auto) 69.7 % (45.5-73.1) Lymph % (Auto) 18.5 % (18.3-44.2) [place] % (Auto) 9.8 H % (2.6-8.5) Eos % (Auto) 1.1 % (0-4.4) Baso % (Auto) 0.4 % (0.2-1.2) Lymph # (Auto) 1.84 K/mm3 (0.9-3.2) [place] # (Auto) 1.0 H K/mm3 (0.1-0.6) Eos # (Auto) 0.1 K/mm3 (0-0.3) Baso # (Auto) 0.0 K/mm3 (0.0-0.1) Abs Immat Gran (auto) 0.05 H K/mm3 (0.00-0.031) Absolute Neuts (auto) 6.9 H K/mm3 (1.3-6.7) Absolute Nucleated RBC 0.0 K/mm3 (0.0-0.012) Nucleated RBC % 0.0 % (0.0-0.2) RPR Pending Blood Type A Positive Antibody Screen Negative Patient hx anesthesia problems: none Family hx anesthesia problems: none Results Review: All pre-operative results and documents have been reviewed as part of the pre-operative evaluation. [facility] Past Medical History Medical History Anxiety Depression Gastritis Ovarian cyst Surgical History Surgical History No pertinent past surgical history Family History Family History Sibling Attention deficit disorder Diabetes mellitus Grandparent Diabetes mellitus Acute myocardial infarction Cerebrovascular accident Father Alcohol abuse Social History Social History Smoking status: Former smoker Tobacco type: cigarettes and e-cigarettes/vaping Alcohol intake: former Substance use: never Substance use type: does not use Lack of Transportation: No Lack of Food: Never True Current Housing: I Have Housing Concerned About Future Housing: No Difficulty Paying Gas/Electric Bills: No Difficulty Paying for Meds: No Currently Unemployed: No Education: High School Diploma/GED Difficulty w/ Childcare or Family Care: No Gender identity (if verbalized by the patient): Female Spiritual care concerns: No Anes - Eval Final PreProcedure Day of Procedure 04/20/23 09:22 Patient weight: obese ASA classification: II Anesthetic plan: proceed Anesthesia type and monitoring: regional epidural and standard monitoring Results Review: All pre-operative results and documents have been reviewed as part of the pre-operative evaluation. Informed Consent: The patient's anesthetic plan and its attendant risks and benefits were discussed with the patient/family/POA. Questions were solicited and answers provided to the satisfaction of the patient/family/POA.
[2023-04-20] MEDS: SODIUM CHLORIDE 0.9% IV 300 ML 600 ML I-UTERINE (13:40)
--- NOTE | 2023-04-20 16:32 | PM.OBPRVD ---
OB - Delivery Note Procedure Delivery date: 04/20/23 Procedure: Intrapartal Events: Decelerations Induction method: AROM and Per Pitocin Protocol Delivery monitor: External FHT and Internal Uterine Route of delivery: Laceration Description: Vaginal and Labial Delivery repair: vicryl Quantitative Blood Loss (ml): 310 Anesthesia type: Epidural Disposition: Floor Complications: mild shoulder dystocia Narrative: With adequate expulsive efforts by the mother, the baby's head was delivered OA and meconium fluid was first noted at this time. A shoulder dystocia was encountered and the anterior shoulder was able to be delivered with McRobert's and suprapubic pressure. The posterior shoulder and the rest of the baby delivered without difficulty with copious terminal meconium squeezed out over an intact perineum. The infant was placed on the mothers chest and suctioned and stimulated. The cord was clamped and cut and the baby was taken to the warmer. Mother and baby both stable. Bilateral vault lacerations extended into labial lacerations were repaired. [place] Baby Date of : 04/20/23 Time of : 16:04 Weeks of gestation at delivery: 39 Infant gender: Male Weight (pounds): 8 Weight (ounces): 7 presentation: vertex Placenta delivery description: Spontaneous Cord Vessel Description: 3 Vessels and Clamped/Cut score one minute: 3 score five minutes: 8
[2023-04-20] MEDS: OXYTOCIN 30 UNITS/NS 500 ML 30 UNITS/500 ML BAG 125 UNITS IV CONT (16:47)
[2023-04-20 16:55] LABS: Rapid Plasma Reagin Non-Reactive (NonReactive)
[2023-04-20] MEDS: IBUPROFEN 600 MG TABLET PO (18:41)
[2023-04-20] MEDS: BENZOCAINE 20% AER SPR (*SP) 56 GM CAN 1 SPRAY TOPICAL (18:41)
[2023-04-20] MEDS: WITCH HAZEL 40 PADS 1 PAD TOPICAL (18:42)
--- NOTE | 2023-04-20 18:42 | OBPPTRN ---
Patient transferred to post room #281 via wheelchair. Support person present. Oriented to unit, room, information board, rooming in, admission packet and security measures. Patient verbalizes understanding.
[2023-04-20] MEDS: CITALOPRAM HYDROBROMIDE 20 MG TABLET 40 MG PO (20:58)
[2023-04-21] VITALS (9 sets, daily range): BP systolic 110–127; BP diastolic 61–78; PULSE 80–102; RESP 16–18; TEMP 36.6–38.8; O2SAT 99–100
[2023-04-21] MEDS: IBUPROFEN 600 MG TABLET PO ×3 (04:00→19:33)
[2023-04-21 05:01] LABS: Hematocrit 27.4 % (37.0-47.0); Hemoglobin 8.6 g/dL (12.0-15.0)
--- NOTE | 2023-04-21 07:02 | PM.OBPNVD ---
OB - PN: Subj Subjective Date/time seen: 04/21/23 07:02 Patient comments: no complaints and pain well controlled baby status: doing well and bottle feeding well Narrative: anxiety improved from last night. OB - PN: Obj Data Labs 04/21/23 03:45 Labs: Laboratory Results - last 24 hr 04/20/23 04/21/23 06:20 03:45 Hgb 8.6 L Hct 27.4 L RPR Non-reactive Blood Type A Positive Antibody Screen Negative OB - PN A/P Plan day: 1 Plan: routine care Comments: anemia- venofer today Time Spent With Patient Time: Total time spent is greater than 50% in coordination of care (as documented) at patient's floor/unit and/or counseling patient: Time with patient: less than 15 minutes Exam Narrative: NAD abdomen soft, nontender, fundus firm below the umbilicus Extremities nontender, 1+ edema
[2023-04-21] MEDS: DOCUSATE SODIUM 100 MG CAPSULE PO ×2 (07:50→17:56)
[2023-04-21] MEDS: POLYSACCHARIDE IRON COMPLEX 150 MG CAPSULE PO ×2 (07:50→17:55)
--- NOTE | 2023-04-21 12:49 | PC.NURSE ---
[id number] Introductions were made, then consulted with patient to assess needs related to . Mother led the conversation with her?plans to feed?her infant with bottle of formula and the?experience so far. Resources provided for inpatient with name written on the white board and medication information from [employer]. Mother voiced understanding of information and will call if there is a request for assistance.
--- NOTE | 2023-04-21 13:58 | WPDANLDPN2 ---
Anes-Prog Note L&D Date/Time: 04/21/23 13:58 Neuro status: Neuro function grossly intact. Vital Signs: Last Vital Signs Temp 38.0 C H 04/21/23 12:30 Pulse 82 04/21/23 11:30 Resp 18 04/21/23 11:30 BP 111/64 04/21/23 11:30 Pulse Ox 99 04/21/23 11:30 O2 Del Method Room Air 04/20/23 18:55 Pain score (VAS): 0 I/O: Intake & Output 04/20/23 04/21/23 04/21/23 23:59 07:59 15:59 Intake Total 240 Output Total 410 Balance -410 240 Patient feedback: Patient satisfied with anesthetic care.
[2023-04-21] MEDS: SODIUM CHLORIDE 0.9% IV 250 ML 125 ML (14:02)
[2023-04-21] MEDS: GENTAMICIN SULFATE INJ 365 MG in DEXTROSE 5% 100 ML 100 MG IVPB (14:02)
[2023-04-21] MEDS: CLINDAMYCIN 900 MG/D5W 50 ML 900 MG/50 ML PIGGYBACK 50 MG IVPB ×2 (15:24→22:07)
[2023-04-21 18:42] LABS: Estimated CRCL calculation 99 ml/min; Estimated Glomerular Filt Rate > 60
[2023-04-21] MEDS: hydrOXYzine HCL 10 MG TABLET PO (19:34)
[2023-04-21] MEDS: CITALOPRAM HYDROBROMIDE 20 MG TABLET 40 MG PO (22:06)
[2023-04-22 20:00] VITALS: BP 111/69; PULSE 76; RESP 18; TEMP 36.8; O2SAT 100
[2023-04-22] MEDS: CITALOPRAM HYDROBROMIDE 20 MG TABLET 40 MG PO (22:27)
[2023-04-23] MEDS: IBUPROFEN 600 MG TABLET PO (00:15)
[2023-04-23 00:31] VITALS: BP 110/65; PULSE 67; RESP 16; TEMP 36.5; O2SAT 99
[2023-04-23 07:30] VITALS: BP 122/80; PULSE 70; RESP 16; TEMP 36.9; O2SAT 99
--- NOTE | 2023-04-23 08:20 | PM.OBPNVD ---
OB - PN: Subj Subjective Date/time seen: 04/23/23 08:20 Patient comments: no complaints, pain well controlled and tolerating diet OB - PN: Obj Data Labs 04/21/23 03:45 04/21/23 18:03 OB - PN A/P Plan day: 3 Plan: routine care and discharge home Time Spent With Patient Time: Total time spent is greater than 50% in coordination of care (as documented) at patient's floor/unit and/or counseling patient: Exam Const: General: comfortable and no acute distress Resp: Effort & Inspection: normal respiratory effort Auscultation: no rales, no rhonchi and no wheezes Cardio: Rate: regular rate Heart sounds: no click, no murmurs and no rubs GI: GI Palp: Yes Soft to palpation and No Tenderness to palpation present (GI) Auscultation: normal bowel sounds Extrem: General: normal to inspection, no pedal edema and no calf tenderness
--- NOTE | 2023-04-23 08:22 | PM.OBDSVD ---
DS: Admitting Diagnosis Discharge Date 04/23/2023 Admitting Diagnosis term OB - DS: Summary OB Procedures : None OB Procedures Intrapartum: Spontaneous Vag Delivery OB Procedures: : None Time Spent with Patient Time attestation: Total time spent providing and/or coordinating discharge services: Discharge Plan Discharge Discharging Clinician: Tigre Gordillo Patient Disposition: Home, Self-Care Activity: pelvic rest Diet: regular Patient Instructions: Antibiotic Form Stand Alone Forms: General Discharge Information Follow-up/Referrals: Tigre Gordillo MD [Physician] - Discharge Medications: Continued hydroxyzine HCl 10 mg tablet 10 mg PO DAILY citalopram 40 mg tablet 40 mg PO DAILY Qty: 90 0RF Date of admission: 04/20/23 05:57 Primary Care Provider: Josh Friedman Admitting Provider: Monica Luna Attending physician on admission: Monica Luna Condition: Stable
[2023-04-23] MEDS: DOCUSATE SODIUM 100 MG CAPSULE PO (08:41)
[2023-04-23] MEDS: POLYSACCHARIDE IRON COMPLEX 150 MG CAPSULE PO (08:41)
--- NOTE | 2023-04-23 09:36 | PC.NURSE ---
Patient viewed the discharge video Mother & Baby Care, The First Two Weeks . Patient was given the opportunity and encouraged to ask questions. Patient verbalized understanding of information shared and has been given the mother/baby guide for home reference.
[2023-04-24 09:38] VITALS: BP 116/78; PULSE 85; RESP 18; TEMP 36.8; O2SAT 99
== END 2023-04-23 13:00 | disposition home or self-care (01) | DRG 807 ==
LOC: ANHLDR 16:34 → ANHOB2 04-23 08:23 → ANHLDR 04-24 13:11 → ANHOB2 04-24 13:11
PROVIDERS: Admitting Provider Obstetrics & Gynecology; PCP Family Medicine; Visit Provider Obstetrics & Gynecology
DX: O99.02 Anemia complicating childbirth (principal); Z37.0 Single live birth; Z3A.39 39 weeks gestation of pregnancy; D64.9 Anemia, unspecified; O77.0 Labor and delivery complicated by meconium in amniotic fluid; O99.344 Other mental disorders complicating childbirth; F41.8 Other specified anxiety disorders; O70.0 First degree perineal laceration during delivery; O36.8330 Maternal care for abnormalities of the fetal heart rate or rhythm, third trimester, not applicable or unspecified; O66.0 Obstructed labor due to shoulder dystocia
CPT/HCPCS: 36415; 82565; 85014; 85018; 85025; 86592; 86850; 86900; 86901; A9270; J1580; J1756; J2405; J2590; J2795; J3010; J7030; J7050; J7120

== ENCOUNTER 2023-10-26 13:41 | Outpatient (RCR) | payer OTHER, MEDICAID, SELFPAY | END 2024-01-24 23:59 | disposition home or self-care (01) | LOC: ANHLAB 13:41 | PROVIDERS: PCP Family Medicine; Visit Provider Obstetrics & Gynecology | DX: O20.0 Threatened abortion (principal); Z3A.00 Weeks of gestation of pregnancy not specified | CPT/HCPCS: 36415; 84702 ==

== ENCOUNTER 2024-02-12 04:08 | Emergency (ER) | payer MEDICAID, SELFPAY ==
--- NOTE | ~2024-02-12 | CT_ITS ---
EXAMINATION: CT abdomen pelvis w con DATE: 02/12/2024 07:18 INDICATION: Low abdominal pain. Bilateral flank pain. TECHNIQUE: Computed tomography (CT) of the abdomen and pelvis was performed with 100 mL Omnipaque 350 intravenous contrast. Automated exposure control and iterative reconstruction technique were employe d. The dose-length product was 199.74 mGy-cm. COMPARISON: None. FINDINGS: The visualized portions of the lung bases are clear without pneumonia or pleural effusion. The heart size is normal. No pericardial effusion. The liver, gallbladder, spleen, pancreas, adrenal glands, and kidneys are normal. There are no dilated loops of bowel. The appendix is not visualized. There are no pathologically enlarged lymph nodes. There is physiologic fluid in the pelvis. The bones are unremarkable. IMPRESSION: 1. No etiology for the patient's symptoms. Reviewed, dictated and finalized at location A.
[2024-02-12 04:14] VITALS: BP 99/61; PULSE 82; RESP 18; TEMP 36.7; O2SAT 97
[2024-02-12 04:36] LABS: Basophils Percent Auto 0.2 % (0.2-1.2); Eosinophils Percent Auto 0.2 % (0-4.4); Hematocrit 43.3 % (37.0-47.0); Immature Granulocyte Absolute 0.05 K/mm3 (0.00-0.031); Immature Granulocyte Percent A 0.4 % (0-0.5); Lymphocytes Absolute Auto 0.49 K/mm3 (0.9-3.2); Lymphocytes Percent Auto 3.8 % (18.3-44.2); Mean Corpuscular HGB Conc 32.3 g/dl (32-36); Mean Corpuscular Hemoglobin 28.5 pg (26-34); Mean Corpuscular Volume 88.2 fl (80-100); Mean Platelet Volume 10.7 fl (7.4-10.4); Monocytes Absolute Auto 0.4 K/mm3 (0.1-0.6); Monocytes Percent Auto 2.7 % (2.6-8.5); Neutrophils Absolute Auto 11.9 K/mm3 (1.3-6.7); Neutrophils Percent Auto 92.7 % (45.5-73.1); Platelet Count Result 285 k/mm3 (150-375); Red Blood Count 4.91 M/mm3 (4.2-5.4); White Blood Count 12.8 K/mm3 (4.5-10.0)
[2024-02-12] MEDS: SODIUM CHLORIDE 0.9% IV 1,000 ML 999 ML IV CONT ×2 (04:43→06:15)
[2024-02-12] MEDS: ONDANSETRON INJ 4 MG/2 ML VIAL IV PUSH (04:44)
[2024-02-12 04:47] VITALS: BP 104/56; PULSE 79; RESP 15; O2SAT 97
[2024-02-12 04:47] LABS: Alanine Aminotransferase 19 U/L (6-35); Albumin Level 4.6 g/dL (3.5-5.1); Alkaline Phosphatase 71 U/L (38-126); Anion Gap 9 mmol/L (4-12); Aspartate Amino Transferase 24 U/L (14-36); Bilirubin,Total 0.8 mg/dL (0.2-1.3); Blood Urea Nitrogen 19 mg/dL (7-17); Calcium 9.5 mg/dL (8.4-10.2); Carbon Dioxide 24 mmol/L (22-30); Chloride 103 mmol/L (98-107); Estimated CRCL calculation 45 ml/min; Estimated Glomerular Filt Rate > 60; Glucose 124 mg/dL (65-110); Lipase 78 U/L (23-300); Potassium 4.3 mmol/L (3.4-5.0); Sodium 136 mmol/L (137-145)
[2024-02-12 05:00] VITALS: BP 99/60; PULSE 85; RESP 14; O2SAT 100
[2024-02-12 05:55] VITALS: O2SAT 100
[2024-02-12 06:02] VITALS: BP 107/54; PULSE 89; RESP 16; O2SAT 100
--- NOTE | 2024-02-12 06:06 | ED.GENADULT ---
HPI - General Adult General Chief complaint: Nausea/Vomiting/Diarrhea Stated complaint: vomiting Time Seen by Provider: 02/12/24 04:33 History of Present Illness HPI narrative: Patient is a 23-year-old female who presents to the emergency department this morning complaining of nausea, vomiting and diarrhea. Patient states that the symptoms started yesterday around 8:00 p.m. and patient has been unable to keep anything. She admits that she does have some abdominal pain that is localized in the right lower quadrant. Patient denies any similar symptoms in the past and denies any recent sick contacts at home or exposure to COVID or influenza. Patient is denying any additional symptoms at this time. There are no other modifying, alleviating, or precipitating factors. Related Data Home Medications Medication Instructions Recorded Confirmed hydroxyzine HCl 10 mg tablet 10 mg PO DAILY 03/31/23 12/25/23 Allergies Allergy/AdvReac Type Severity Reaction Status Date / Time Sulfa (Sulfonamide Allergy Unknown Other Verified 12/15/23 10:27 Antibiotics) Penicillins AdvReac Intermediate Unknown Verified 12/15/23 10:27 Review of Systems Review of Systems: All systems are reviewed and are negative unless stated otherwise in the HPI. [facility] Past Medical History Medical History Anxiety Depression Gastritis Ovarian cyst Surgical History Surgical History No pertinent past surgical history Family History Family History Sibling Attention deficit disorder Diabetes mellitus Grandparent Diabetes mellitus Acute myocardial infarction Cerebrovascular accident Father Alcohol abuse Social History Social History Smoking status: Former smoker Tobacco type: cigarettes and e-cigarettes/vaping Alcohol intake: former Substance use: never Substance use type: does not use Lack of Transportation: No Lack of Food: Never True Current Housing: I Have Housing Concerned About Future Housing: No Difficulty Paying Gas/Electric Bills: No Difficulty Paying for Meds: No Currently Unemployed: No Education: High School Diploma/GED Difficulty w/ Childcare or Family Care: No Gender identity (if verbalized by the patient): Female Spiritual care concerns: No Exam Narrative: General: Alert, awake, afebrile, in no acute distress. HEENT: PERRL, no rhinorrhea, no post nasal drip, oropharynx clear. Neck: Trachea midline, no JVD, no lymphadenopathy. Cardiovascular: Regular rate and rhythm, no murmurs, rubs or gallops, no peripheral edema. Respiratory: Clear to auscultation bilaterally, no tachypnea, no wheezing, no rhonchi, no rubs, no respiratory distress. Abdomen: Soft, mild tenderness to palpation over the right lower quadrant, nondistended, no rebound, no guarding, no peritoneal signs. Musculoskeletal: No joint swelling or deformity, normal muscle tone. Skin: No rashes or petechia, no signs of infection. Psychiatric: Alert and oriented, normal behavior and judgment for situation. Neurological: Alert and oriented to person, place, and time. Follows all commands. No focal deficits, speech is clear and fluent. Course Vital Signs Vital signs: Vital Signs Temperature 98.0 F 02/12/24 04:14 Pulse Rate 82 02/12/24 04:14 Respiratory Rate 18 02/12/24 04:14 Blood Pressure 99/61 L 02/12/24 04:14 Pulse Oximetry 97 02/12/24 04:14 Oxygen Delivery Room Air 02/12/24 04:14 Temperature 98.0 F 02/12/24 04:14 Pulse Rate 89 02/12/24 06:02 Respiratory Rate 16 02/12/24 06:02 Blood Pressure 107/54 L 02/12/24 06:02 Pulse Oximetry 100 02/12/24 06:02 Oxygen Delivery Room Air 02/12/24 04:14 Medical Decision Making MDM Narrative Medical decision ma
[2024-02-12 06:08] LABS: Appearance Urine Cloudy (Clear); Bacteria Urine Rare /hpf; Bilirubin Urine Negative (Negative); Blood Urine Negative (Negative); Color Urine Yellow (Yellow); Glucose Urine UA Negative (Negative); Ketones Urine Trace mg/dL (Negative); Leukocyte Esterase Ur Negative LEU/UL (Negative); Nitrate Urine Negative (Negative); Non Pathogenic Casts 0-2; Protein Urine Trace mg/dL (Negative); Specific Grav Ur 1.028 (1.001-1.035); Squamous Epithelial Cell Urine Few /hpf (Few); WBC Urine 0-5 /hpf (0-3)
[2024-02-12] MEDS: PANTOPRAZOLE SODIUM IV 40 MG VIAL IV PUSH (06:14)
[2024-02-12 06:37] LABS: Influenza A QL RT-PCR Negative (Negative); Influenza B QL RT-PCR Negative (Negative); RSV RNA, RT-PCR Negative (Negative); SARS-CoV-2 RNA PCR Negative (Negative)
[2024-02-12 07:06] LABS: Add Urine Microscopic? YES
[2024-02-12 08:10] VITALS: BP 101/55; PULSE 90; RESP 16; TEMP 36.6; O2SAT 100
== END 2024-02-12 08:12 | disposition home or self-care (01) ==
PROVIDERS: Emergency Provider Emergency Medicine
DX: R11.2 Nausea with vomiting, unspecified (principal); R19.7 Diarrhea, unspecified; F41.8 Other specified anxiety disorders; Z87.891 Personal history of nicotine dependence; Z20.822 Contact with and (suspected) exposure to COVID-19
CPT/HCPCS: 36415; 74177; 80053; 81001; 81025; 83690; 85025; 87637; 96361; 96374; 96375; 99284; C9113; J2405; J7030; Q9967

== ENCOUNTER 2025-10-05 09:32 | Emergency (ER) | payer SELFPAY ==
--- NOTE | ~2025-10-05 | XR_ITS ---
EXAMINATION: XR chest 2V, 10/05/2025 10:42 [employer] HISTORY: L rib pain, recent URI/cough COMPARISON: No comparisons available. Technique: 2 views obtained. Findings: The lungs are clear, no effusion. No pneumothorax. Heart is normal size. Mediastinal and hilar contours are within normal limits. Bony thorax no acute abnormality. Impression: No acute cardiopulmonary abnormality. Reviewed, dictated and finalized at location [facility]. [employer] Impression: No acute cardiopulmonary abnormality.
--- OUTSIDE RECORDS SUMMARY | 2025-10-05 09:34 | XMS_ITS | Continuity of Care Document ---
Author Organization [facility] [place] Address [address] [place] [address] Care Team Providers Care Greens Keeper Name Role Phone GEE OAKLEY Primary Care Provider [phone] MARTINEZ BARKER Primary Care Provider Assessment No assessment recorded. Plan of Treatment Reminders Order Date Submit Date Provider Last Modified By Organization Details Last Modified Time Details Appointments OB ROUTINE 2024 08:30A M KHADRA BARAKAT MD Not available Not available Not available U/S OB BASELIN E 2025 01:00P M ULTRASOUND Not available Not available Not available OB ROUTINE 2025 02:00P M KHADRA BARAKAT MD Not available Not available Not available Lab None recorde d. Referral None recorde d. Procedures None recorde d. Surgeries None recorde d. Imaging None recorde d. Medication Orders None recorde d. Patient TargetsNo targets recorded. Patient InstructionsNo instructions recorded. Reason for Referral None Reported. Problems Name Problem SNOMED Code Status Onset Date Resolution Date Notes Provider Name and Address Organization Details Recorded Time Abnormal cervical Papanico laou smear 382845101 Active repap postpart um Suellen escudero, [facility] 3 16:14:24 Electron ic cigarett e user [id number] Active quit Suellen escudero [facility] 3 16:14:24 Abnormal cervical Papanico laou smear 399048544 Completed repap postpart um Suellen Mccoy [facility] 3 16:14:24 Electron ic cigarett e user [id number] Completed quit Suellen [facility]ccoy [facility] 3 16:14:24 Mixed anxiety and depressi ve disorder 572814479 Completed Celexa 40mg. 2/7 - hydroxyz ine as needed Suellen Mccoy [facility] 3 16:14:24 Acute vaginiti s 43543484 Completed 201511/06/2021 Acute vaginiti s;Record ed Elsewher e: No Locat ion: [place] young [facility] S ource: EHR Traffic Inspector juan: N Practi ce ID: 0001 Tony lable Time: 02:45:00 PM Beth Kay [facility] 1 17:35:58 Syphilis test finding 453656443 Completed 201511/06/2021 Encntr screen for infectio ns w sexl mode of transmis s;Practi ce ID: 0001 Beth Kay [facility] 17:36:26 Infectio n screenin g Completed 201511/06/2021 Encounte r for screenin g for oth infec/pa rastc diseases ;Practic e ID: 0001 Beth Kay [facility] 17:36:[address] Concept Completed 201511/06/2021 Encntr for routine child health exam w/o abnormal findings ;Recorde d Elsewher e: No Locat ion: [place] [facility] S ource: EHR Traffic Inspector juan: N Practi ce ID: 0001 Tony lable Time: 02:45:00 PM Beth Kay [facility] 17:36:21 Finding of regulari ty of menstrua l cycle Completed 201511/06/2021 Irregula r menstrua tion, unspecif ied;Prac yvonne ID: 0001 Beth Kay [facility] 17:36:09 Pregnanc y test negative [id number] Completed 201511/06/2021 Encounte r for pregnanc y test, result negative ;Practic e ID: 0001 Beth Kay [facility] 17:36:17 Finding of general energy 879073884 Completed 201511/06/2021 Other fatigue; Recorded Elsewher e: No Locat ion: [facility] S ource: EHR Traffic Inspector juan: N Practi ce ID: 0001 Tony lable Time: 01:15:00 PM Beth Kay [facility] 17:36:07 Finding of defecati on Completed 201511/06/2021 Constipa tion, unspecif ied;Prac yvonne ID: 0001 Beth Kay [facility] 17:36:06 Procedur e by method Completed 201611/06/2021 Encounte r for other general counseli ng and advice on contrace ption;Re corded Elsewher e: No Locat ion: [facility] S ource: EHR Traffic Inspector juan: N Practi ce ID: 0001 Tony lable Time: 09:45:00 AM Beth Kay [facility] 17:36:04 Procedur e Completed 201611/06/2021 Enctr srvlnc implanta ble subderma l contrace ptive;Pr actice ID: 0001 Beth Kay [facility] 17:36:[address] Concept Completed 201611/06/2021 Encounte r for surveill ance of other contrace ptives;R ecorded Elsewher e: No Locat ion: [facility] S ource: EHR Traffic Inspector juan: N Practi ce ID: 0001 Tony lable Time: 02:45:00 PM Beth escudero [facility] 17:36:24 Finding of sensatio n of breast Completed 201711/06/2021 Mastodyn ia;Pract ice ID: 0001 Beth Kay [facility] 17:36:11 Pelvic and perineal pain 772415221 Completed 201711/06/2021 Pelvic and perineal pain;Pra ctice ID: 0001 Beth Kay [facility] 17:36:16 Nausea [id number] Completed 201711/06/2021 Nausea;P ractice ID: 0001 Beth Kay [facility] 17:36:14 Urinary tract infectio us disease [id number] Completed 201811/06/2021 Urinary tract infectio n, site not specifie d;Practi ce ID: 0001 Beth Kay [facility] 17:36:27 Lesion of ovary Completed 201811/06/2021 Other ovarian cyst, left side;Rec orded Elsewher e: No Locat ion: [facility]: N Practi ce ID: 0001 Tony lable Time: 04:30:00 PM [facility] 17:36:02 Disorder of breast 69494514 Completed 201811/06/2021 Disorder of breast, unspecif ied;Prac yvonne ID: 0001 Beth Kay [facility] 17:36:[address] Concept Completed 201811/06/2021 Encntr for community support associate exam (general ) (routine ) w/o abn findings ;Recorde d Elsewher e: No Locat ion: [place] [facility] S ource: EHR Traffic Inspector juan: N Practi ce ID: 0001 Tony lable Time: 01:00:00 PM Beth Kay [facility] 1 17:36:22 Pregnanc y 84238454 Completed 202104/24/2023 Estrella Murphy [facility] 5 09:55:37 COVID-19 844308530 Completed 2022 ASA & serial growth Suellen Mccoy [facility] 3 16:14:24 Anemia 137556379 Completed 2022 1 tab BID slowfe daily Suellen Mccoy [facility] 3 16:14:24 Mixed anxiety and depressi ve disorder 939464708 Active 2024 celalexia 40 Tony Gordillo MD [address], [place], [address], [facility] 5 10:27:37 Pregnanc y 37263828 Active 2024 Estrella Murphy [facility] 5 09:55:37 Mixed anxiety and depressi ve disorder 791677827 Active 2024 celalexia 40 Tony Gordillo MD [address], [place], [address], [facility] 5 10:27:37 Problem Notes None recorded. Procedures Surgical History Date Name Laterality Status Provider Name and Address Organization Details Recorded Time 5 Date of Last Pap Smear completed Estrella Murphy [facility] 09/29/2025 09:49:51 0 extraction of wisdom tooth completed Dasia Black [facility] 05/08/2020 09:45:39 Imaging Results None recorded. Procedure Notes None recorded. Medical Equipment None Reported. Allergies Allergen ID Allergen Name Allergen Category Reaction Reaction Severity Criticality Documentation Date Start Date Code Code System Note Provider Name and Address Organization Details Recorded Time 972 Product containin g penicilli n (product) medicatio n Not available Not available Not available 04/20/2020 40225 8001 SNOMED Dasiadwight escudero, [facility] 0 09:47:26 973 Substance with sulfonami de structure and antibacte rial mechanism of action (substanc e) medicatio n Not available Not available Not available 04/20/2020 68721 8003 SNOMED Dasia escudero, [facility] 0 09:47:36 Medications Name Sig Start Date Stop Date Status Note LastModified by Organization Details LastModified Time nifedipin e ER 30 mg tablet,ex tended release 24 hr TAKE 1 TABLET BY MOUTH DAILY 07/27 completed Not Available Not Available Not Available terconazo le 0.4 % vaginal cream Insert 1 applicat orful every day by vaginal route for 7 days. 10/07 completed Not Available Not Available Not Available clindamyc in HCl 300 mg capsule TAKE ONE CAPSULE BY MOUTH EVERY 8 HOURS FOR 10 DAYS 09/01 completed Not Available Not Available Not Available citalopra m 40 mg tablet TAKE 1 TABLET BY MOUTH DAILY active Not Available Not Available No t Available azithromy beth 250 mg tablet 09/01 completed Not Available Not Available Not Available ofloxacin 0.3 % eye drops INSTILL 1 DROP IN LEFT EYE FOUR TIMES DAILY 07/24 completed Not Available Not Available Not Available hydrocodo ne 5 mg-acetam inophen 325 mg tablet TAKE 1 TABLET BY MOUTH EVERY 6 HOURS NEEDED 11/06 completed Not Available Not Available Not Available Monistat 7 2 % vaginal cream Insert one applicat orful vaginall y once a night at bedtime for 7 days. 07/29 completed Prescrib ed Elsewher e: No Locat ion: [place] young [facility] M odify By: jen Murdock r DateTime : 06/05/20 16 11:17:59 AM Not Available Not Available Not Available Diflucan 150 mg tablet Take 1 tablet by oral route. 05/08 completed Not Available Not Available Not Available Clotrimaz ole-7 1 % vaginal cream Insert 1 applicat orful every day by vaginal route at bedtime for 7 days. 08/15 completed Not Available Not Available Not Available ciproflox acin 500 mg tablet take 1 tablet by oral route every 12 hours 08/02 completed Prescrib ed Elsewher e: No [facility] By: ayan Young ncounter DateTime : 01/28/20 19 10:45:00 AM Not Available Not Available Not Available citalopra m 20 mg tablet TK 1 AND 1/2 TS PO QD 11/06 completed Not Available Not Available Not Available Metrogel Vaginal 0.75 % (37.5 mg/5 gram) Insert 1 applicat orful every day by vaginal route. 05/08 completed Not Available Not Available Not Available nifedipin e ER 60 mg tablet,ex tended release 24 hr TAKE 1 TABLET BY MOUTH DAILY 07/27 completed Not Available Not Available Not Available Zoloft 50 mg tablet take 1 tablet by oral route every day 08/12 completed Prescrib ed Elsewher e: Yes Loca tion: [facility] odify By: cristiano anderson DateTime : 06/02/20 16 02:45:00 PM Not Available Not Available Not Available dicyclomi ne 20 mg tablet TAKE 1 TABLET BY MOUTH TWICE DAILY NEEDED FOR ABDOMINA L PAIN 11/26 completed Not Available Not Available Not Available Flagyl 500 mg tablet Take all 4 tablets at once. 06/12 completed Not Available Not Available Not Available doxycycli ne monohydra te 100 mg capsule TAKE 1 CAPSULE BY MOUTH TWICE DAILY 09/01 completed Not Available Not Available Not Available buspirone 7.5 mg tablet TAKE 1 TABLET BY MOUTH TWICE DAILY 10/07 completed Not Available Not Available Not Available hydroxyzi ne HCl 25 mg tablet TAKE 1 TABLET BY MOUTH TWICE DAILY NEEDED FOR ANXIETY 10/07 completed Not Available Not Available Not Available mupirocin 2 % topical ointment APPLY TOPICALL Y TO THE AFFECTED AREA TWICE DAILY 09/01 completed Not Available Not Available Not Available hydroxyzi ne HCl 10 mg tablet TAKE 1 TABLET BY MOUTH THREE TIMES DAILY NEEDED FOR ANXIETY 09/01 completed Not Available Not Available Not Available ondansetr on 4 mg disintegr ating tablet DISSOLVE ONE TABLET BY MOUTH EVERY 8 HOURS NEEDED FOR NAUSEA 09/01 completed Not Available Not Available Not Available doxycycli ne hyclate 100 mg tablet TAKE 1 TABLET BY MOUTH TWICE DAILY FOR 10 DAYS 09/01 completed Not Available Not Available Not Available NuvaRing 0.12 mg-0.015 mg/24 hr vaginal insert 1 vaginal ring by vaginal route every month leave in place for 3 weeks, remove for 1 week 03/03 completed Prescrib ed Elsewher e: No Locat ion: [facility] odify By: cristiano Murdock r DateTime : 10/13/20 16 01:15:00 PM Not Available Not Available Not Available Zithromax 500 mg tablet take 2 tablet by oral route once 07/29 completed Prescrib ed Elsewher e: No Locat ion: [facility] odify By: jen Murdock r DateTime : 06/03/20 16 05:00:54 PM Not Available Not Available Not Available nitrofura ntoin monohydra te/macroc rystals 100 mg capsule TAKE 1 CAPSULE BY MOUTH EVERY 12 HOURS FOR 7 DAYS 04/10 completed Not Available Not Available Not Available Metrogel 1 % topical apply by topical route every day to the affected area(s) ; rub in gently and complete ly 07/29 completed Prescrib ed Elsewher e: No Locat ion: [facility] odify By: jen Murdock r DateTime : 06/02/20 16 02:45:00 PM Not Available Not Available Not Available Unisom (doxylami ne) 07/27 completed Not Available Not Available Not Available 1 daily active Not Available Not Meenakshi ilable Not Available cholecalc iferol (vitamin D3) 1,250 mcg (50,000 unit) capsule 10/07 completed Not Available Not Available Not Available Nexplanon 68 mg subdermal implant 03/03 completed Prescrib tsering Becker e: No Locat ion: Kimmiefadia hector [facility] Indu odify By: cristiano anderson DateTime : 09/15/20 16 10:30:00 AM Not Available Not Available Not Available Estarylla 0.25 mg-0.035 mg tablet TAKE 1 TABLET BY MOUTH EVERY DAY 09/01 completed Not Available Not Available Not Available June Fe 24 08/10 completed Not Available Not Available Not Available Aurovela 24 Fe 1 mg-20 mcg (24)/75 mg (4) tablet TK 1 T PO QD 11/06 completed Not Available Not Available Not Available Aurovela Fe 1-20 (28) 1 mg-20 mcg (21)/75 mg (7) tablet TAKE 1 TABLET BY MOUTH EVERY DAY 11/07 completed Not Available Not Available Not Available ID NOW COVID-19 Test Kit TEST DIRECTED 11/06 completed Not Available Not Available Not Available Vitals Date Recorded Body height Body mass index (BMI) Body weight Systolic And Diastolic Provider Name and Address Organization Details Last Updated DateTime 08/22/2025 162.56 cm 20.1 kg/m2 06322.31 g 105/67 mm[Hg] Monica Kerr [facility] 08/22/2025 17:58:41 Social History Question Answer Notes LastModified by Organizat ion Details LastModified Time Tobacco Smoking Status Former Smoker Zee Arita kota, [facility] 04/17/2023 10:55:29 Do You Have An Advance Directive? No Information n ot available 03/04/2021 How Many Years Have You Consumed Alcohol? 5 Information not available 03/04/2021 Are You Blind Or Do You Have Difficulty Seeing? No Information n ot available 03/04/2021 What Is Your Level Of Caffeine Consumption? None Information not available 03/04/2021 How Much Tobacco Do You Chew? None Information not available 03/04/2021 In The 14 Days Before Symptom Onset, Have You Had Close Contact With A Laboratory-confirm ed COVID-19 While That Case Was Ill? No Information n ot available 03/04/2021 In The 14 Days Before Symptom Onset, Have You Had Close Contact With A Person Who Is Under Investigation For COVID-19 While That Person Was Ill? No Information not available 03/04/2021 Have You Been To An Area Known To Be High Risk For COVID-19? No Information not available 03/04/2021 Are You Deaf Or Do You Have Serious Difficulty Hearing? No Information not available 03/04/2021 What Type Of Diet Are You Following? REGULAR Information n ot available 03/04/2021 Which Illicit Or Recreational Drugs Have You Used? None [email or web address] Information not available 04/17/2023 What Is The Highest Grade Or Level Of School You Have Completed Or The Highest Degree You Have Received? [id number] Information not available 09/29/2025 Are There Any Guns Present In Your Home? No Information not available 03/04/2021 What Was The Date Of Your Most Recent Tobacco Screening? 06/12/2020 [email or web address] Information not available 04/17/2023 Do You Use Protection During Sex? No Information not available 03/04/2021 Do You Use Your Seat Belt Or Car Seat Routinely? Yes Information not available 03/04/2021 Are You Sexually Active? Yes [email or web address] Information not available 08/22/2025 Do You Have Smoke And Carbon Monoxide Detectors In Your Home? Yes Information not available 03/04/2021 How Much Tobacco Do You Smoke? No [email or web address] Information not available 06/12/2020 Do You Use Sunscreen Routinely? Yes Information not available 03/04/2021 How Many Years Have You Smoked Tobacco? 0 Information not available 03/04/2021 Have You Used IV Drugs? No Information not available 03/04/2021 Do You Have Difficulty Walking Or Climbing Stairs? No Information not available 08/22/2025 Sex: Unknown Functional Status Question Answer Note LastModified by Organizat ion Details LastModified Time Do you use any illicit or recreational drugs? No Information not available 03/04/2021 What is your level of alcohol consumption? None [email or web address] Information not available 09/29/2025 Do you or have you ever used smokeless tobacco? Currently uses moist powdered tobacco [email or web address] Information not available 04/17/2023 Are you currently employed? Yes [email or web address] Information not available 08/22/2025 Are you able to walk independently without assistance or assistive devices? [email or web address] Information not available 03/04/2021 Are you able to care for yourself independently? 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 No [email or web address] Information not available 08/22/2025 Do you or have you ever used e-cigarettes or vape? Current user of electronic cigarettes [email or web address] Information not available 04/17/2023 What is your exercise level? Occasional [email or web address] Information not available 04/20/2020 Mental Status Question Answer Note LastModified by Organization D etails LastModified Time Do you feel stressed (tense, restless, nervous, or anxious, or unable to sleep at night)? [id number] Information not available 11/07/2021 Family History Relationship Description Onset Age of this Age Resolved Age Notes LastModified by Organization Details LastModified Time Maternal Grandmother Diabetes mellitus [email or web address] Not available 04/20 09:49:07 Mother Cyst of ovary [email or web address] Not available 08/09 17:29:30 Medical History Condition Response Anxiety Disorder Y History of abnormal pap Y Depression/ depression Y History of STI Y Gynecological History Statement/Question Response Abnormal Pap Y Flow Moderate Date of LMP 12/30/2021 N On BCP's at Conception? Y STIs/STDs N Was last menstrual period normal Y HPV Vaccine Y Duration of Flow (days) 5 Current Control Method BCPs Date of control 10/26/2021 Are cycles usually normal Y Frequency of Cycle (Q days) 28 Sexually Active? Y BCPs Menses Monthly Y Age of first menstrual cycle 12 Date of Last Pap Smear 07/27/2025 Sexual Problems? N LMP Approximate Desired Control Method BCPs N Obstetrics History GPAL:G 4 P 1 0 2 1 Type Value Full Term 1 Induced 2 Living 1 Total 4 Past Encounters Encounter ID Performer Location Encounter Start Date Encounter Closed Date Diagnosis/Indication Diagnosis SNOMED-CT Code Diagnosis ICD10 Code Diagnosis IMO Codes Diagnosis Note [id number] AFSHIN Ross [place] [address],[place] [address] 07/27/2025 10:50:51 07/27/2025 14:18:17 Urinary symptoms 416228934 R39.9 12098 Ua done, cx sentvagini tis panel sentSTI screen declined Gynecologi c examination 41075116 Z01.385 [id number] WWEPap - done todaySTI screen - declinedRo utine labs - PCPRTC in 1 yr or sooner if needed It is strongly advised to have an annual flu shot and up can obtain at most pharmacies . If you have not had a TDap shot in the last 10 years you should obtain one as well. Discussed with patient & provided with informatio n regarding the HPV vaccine if applicable . Encourage safe sexual practices, to use condoms and limit partners if not already in a monogamous relationsh ip. Do monthly self breast exams. BRCA testing is now available for patients with strong genetic history of female cancer. If interested contact the office. Engage in regular exercise. Avoid tobacco and illicit drugs. This lifestyle behavior pattern will lead to less health conditions and longer life span. If BMI greater than 25 dietary consult advised. Questions answered. test positive 291422315 Z32.01 238174 UPT (+) todaydiscu ssed result with ptencourag ed daily PNVlabs ordered, will update pt with results when availablep recautions discussed Time spent in visit is a total of 45 mins with at least 50% of visit consisting of counseling and review of plan of care. Vaginal discharge 342549 006 N89.8 66262 [id number] KHADRA BARAKAT MD [place] [address],[place] [address] 08/22/2025 17:28:12 08/22/2025 17:58:42 [id number] KHADRA BARAKAT MD [place] [address],[place] [address] 08/22/2025 17:29:27 08/23/2025 08:27:26 test positive 381070638 Z32.01 [id number] 1. Exam today within normal limits.2. Ultrasound today confirms GA and viability. EDC . GC/Tariq a testing done: will f/u as indicated. 4. ACOG guidelines and plan of care for reviewed with patient. All questions answered.5 . Return to office at 12 weeks for new OB visit6. Will need new OB labs at next visit.7. Genetic screening: desires. Genetic in vestigation procedure 78128714 Z31.430 Mixed anxi ety and depressive disorder 461217287 F41.8 539676 -continue celexa daily and hydroxyzin e PRN Electronic cigarette user 367269700 Z78.9 11191067 - discussed decreasing use and switching to zero nicotine- encouraged patient with cessation Health Concerns Section Related Observation LastModified by Organization Detai ls LastModified Time None Recorded Concern Status LastModified by Organization Details LastModified Time None Recorded Payers Encounter Date Sequence Insurance Name Policy Number Policy Carbajal Covered Member ID Carbajal Member ID Guarantor Name 08/22/2025 1 [place] [facility] Emily Cerda [id number] Emily Cerda OBGyn Episode Ob Episode Information Episode Created Date Number of Fetuses Patient Bloodtype Patient rh Status Prepregnancy Weight lbs Domestic Partner Domestic Partner Phone Father Name Wood 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 Status 09/29/20 25 1 A Positive Jamshid Porras OPEN Fetus Data First Name Last Name Admitted to NICU Weight (g) Sex Living Outcome Pediatric Complications Fetus ID Race Codes Race Delivery Type [id number] Problems Problem Notes Problem Name Start Date End Date Resolution Snomed Code Not e Mixed anxiety and depressive disorder 09/29/2025 [id number] celexa 40 Karl Calculation Initial Karl Date Initial Exam Date Initial Exam Provider Initial Ultrasound Date Last Menstrual Period Date Ultra Sound Weeks Gestation 09/29/2025 08/22/2025 06/26/2025 8 Eighteen To Twenty Week Karl Update Ultra Sound Date Fundal Height At Umbil Quickening Date Ultra Sound Latest Weeks Gestation Final Karl Confirmed By Final Karl Confirmed Date Final Karl Date Ultra Sound Latest Days Gestation 0 [email or web address] 09/29/2025 04/02/20 26 0 Pre-steffi Flowsheet Flowsheet Date 09/29/2025 Slater Score Blood Edema Fundus Height Fundus Units Glucose Ketones Leukocytes Nitrite Labor Signs Protein Cervic Dilation Cervic Effacement Cervic Station Type Weight in lbs Pre/Post Dialysis Refused Weight 122.755231677295 BP Diastolic BP Location Tested BP Systolic BP Type 72 R arm 104 sitting Fetus Heart Rate Present Fetus Movement Comments this patient is a -25year-ol d multiparous female at 12 weeks' gestation who presents for initial care. She has a history of 36 week vaginal births. Her medical, surgical, obstetric history is unremarkable. She is vaccinated. She was given precautions recommendations for . We talked about vaccines in . Talked about care in detail. She is having genetic testing. She had a normal 12 week ultrasound. To begin routine care. Menstrual History Last Menstrual Date Menses Monthly On Bcp Conception Prior Menses Frequency Hcg Plus Date Menarche Onset Age 0806/26/2025 Delivery Information Delivery Date Delivery Type Labor Anesthesia Weeks Gestation Incision Type Labor Labor Length Hrs Delivered By Post Complications Tubal Sterilization Discharge Date Comments Discharge Information Feeding Method Contraceptive Method Maternal HG B and HCT Levels
--- OUTSIDE RECORDS SUMMARY | 2025-10-05 09:34 | XMS_ITS | Encounter Summary ---
Author Organization 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 Name Role Phone Marce French MD Primary Care Provider [phone] Reason for Visit * Reason Onset Date Comments Refill Request 01/27/2020 Encounter Details Date Type Department Care Team (Late st Contact Info) Description 01/27/2020 Refill [facility] [address], [address] [place] [address] Marce French MD [id number] [facility] [address] [id number] Refill Request Social History Tobacco Use Types Packs/Day Years Used Date Smoking Tobacco: Never Smokeless Tobacco: Never Alcohol Use Standard Drinks/Week Comments Not Asked 0 (1 standard drink = 0.6 oz pur e alcohol) Comments No Sex and Gender Information Value Date Recorded Sex Assigned at Not on file Legal Sex Female 5:41 AM [employer]EL [employer] Gender Identity Not on file Sexual Orientation Not on file documented as of this encounter Functional Status * Is person deaf or have serious hearing difficulty? Answer Date of Assessment Author No 11/23/2017 2:47 PM Davi Monaco RN * Is person blind or have serious difficulty seeing? Answer Date of Assessment Author No 11/23/2017 2:47 PM Davi Monaco RN * Does person have serious difficulty walking/climbing stairs? Answer Date of Assessment Author No 11/23/2017 2:47 PM Davi Monaco RN * Does person have difficulty dressing/bathing? Answer Date of Assessment Author No 11/23/2017 2:47 PM Davi Monaco RN * Does person have difficulty doing errands alone? Answer Date of Assessment Author No 11/23/2017 2:47 PM Davi Monaco RN documented as of this encounter Mental Status * Does person have difficulty concentrating/remembering/making decisions? Answer Entry Date Author No 11/23/2017 2:47 PM Davi Monaco RN documented in this encounter Miscellaneous Notes * Telephone Encounter - Rosa June - 01/27/2020 3:06 PM CDT Emily Cerda is in need of Her Requested Prescriptions Pending Prescriptions Disp Refills ??? citalopram (CELEXA) 20 MG tablet 45 tablet 0 Sig: Take 1.5 tablets by mouth once daily Person calling for the refill: step-mother Last office visit 07/08/19 Next Appointment scheduled: Visit date not found Last Refill for this medication 12/19/2019 Does patient have any new allergies since last office visit? No Was the pharmacy verified? Yes If this is a controlled substance was the Last 4 of SSN verified? NO, verified emergency contact (If unable to verify last 4 of SSN transfer to the clinic for further review) documented in this encounter Plan of Treatment Not on file documented as of this encounter Goals Goal Patient Goal Type Associated Problems Recent Progress Patient-Stated? Author Use safety retraint in car Lifestyle On track( 021 9:37 AM JEWEL HOLE GAUGER) No Gwendolyn Cosme RN documented as of this encounter Visit Diagnoses Not on filedocumented in this encounter Care Teams Water [employer] Operator Relationship Specialty Start Date End Date Marce French MD PCP - General Pediatrics 02/18/18 documented as of this encounter
--- OUTSIDE RECORDS SUMMARY | 2025-10-05 09:34 | XMS_ITS | Data Portability ---
Author Organization [facility] Address [address] [place] [address] Care Team Providers Care Truck Engine Technician Name Role Phone GEE OAKLEY Primary Care Provider MARTINEZ BARKER Primary Care Provider [phone] Assessment Encounter Date Assessment Date Assessment LastModified by Organization Details LastModified Time 07/27/2025 07/27/2025 Annual gynecological exam performed. Patient will come back in a year unless there are new symptoms. [email or web address] Not available 07/27/2025 11:06:06 Plan of Treatment Reminders Order Date Submit Date Provider Last Modified By Organization Details Last Modified Time Details Appointments OB ROUTINE 2024 08:30A M KHADRA BARAKAT MD Not available Not available Not available U/S OB BASELIN E 2025 01:00P M ULTRASOUND Not available Not available Not available OB ROUTINE 2025 02:00P M KHADRA BARAKAT MD Not available Not available Not available Lab culture , urine 2024 025 [facility] (Lab), [address], [place], [address], 10/01/2025 18:59:06 drug screen, urine 2024 025 [email or web address] [address], [address], [place], [address], 09/29/2025 10:36:09 CT + NG + TV, RNA, unspeci fied specime n 2024 [facility] (Lab), [address] [facility], [place], [address], 10/01/2025 18:59:05 aneuplo idy risk, chromos ome specifi c circula ting cell free (ccf) DNA, materna l serum 2024 GERRY Leslie, [address], [place], [address], 09/12/2025 23:39:13 HbA1c (hemogl obin A1c), blood 2024 [facility] (Lab), [address] [facility] [address] [facility] [address], [place], [address], 08/22/2025 21:08:42 type + screen, blood 2024 [email or web address] [facility] (Lab), [address] [place], [address], 08/22/2025 21:07:53 rubella igg Ab, titer, serum 2024 [facility] (Lab), [address] [place], [address], 08/22/2025 21:08:43 CBC w/ auto diff 2024 [facility] (Lab), [address] [place], [address], 08/22/2025 21:08:42 hepatit is C virus Ab, serum 2024 [facility] (Lab), [address] [place], [address], 08/22/2025 21:08:42 HBsAg (hepati tis B surface Ag), serum 2024 [facility] (Lab), [address], [place], [address], 08/22/2025 21:08:43 RPR (rapid plasma reagin) , serum 2024 025 [facility] (Lab), [address], [place], [address], 08/22/2025 21:08:43 HIV 1+2 AB + HIV 1 p24 Ag, qualita tive immunoa ssay, serum 2024 025 [email or web address] [facility] (Lab), [address], [place], [address], 08/22/2025 21:07:53 genetic screen, unspeci fied specime n 2024 025 [facility], [address], [place], [address], 09/12/2025 22:21:46 pregnan cy test, urine [address], [address], [place], [address], 07/27/2025 11:49:28 urinaly sis, dipstic k [address], [address], [place], [address], 07/27/2025 11:49:28 culture , urine 2024 025 [facility] (Lab), [address], [place], [address], 08/01/2025 15:41:45 urinaly sis, complet e 2024 025 [facility] (Lab), [address], [place], [address], 08/01/2025 15:41:42 beta-HC G, quantit ative, serum or plasma 2024 025 [facility] (Lab), [address] [facility] [facility], [place], [address], 08/01/2025 15:41:43 type + screen, blood 2024 025 [facility] (Lab), [address] [facility] [address] [facility], [place], [address], 08/03/2025 04:05:01 pap, IG + reflex HPV if ASC-U - if hpv positiv e run subtypi ng 16, 18/45 add gc/chla m/trich 2024 025 [facility] (Lab), [address] [facility] [address] [facility] [address], [place], [address], 08/01/2025 15:41:44 unliste d lab - women's health swab, IRMA 2024 025 [facility] (Lab), [address], [place], [address], 08/01/2025 15:41:43 Referral None recorde d. Procedures None recorde d. Surgeries None recorde d. Imaging US, obstetr ic, nuchal translu cency 2024 025 [email or web address] [facility], [facility] [address], [place], [address], 09/26/2025 20:29:01 Medication Orders None recorde d. Patient TargetsNo targets recorded. Patient InstructionsNo instructions recorded. Reason for Referral None Reported. Results Created Date Observation Date Name Description Value Unit Range Abnormal Flag Note LastModifiedBy Organization Detail LastModifiedTime 09/12/20 25 09/12/2025 [UNIT Y] JAIR ALFONSO N fragile X carrier screen NEGATI VE repeat s normal Not Available [facility] [address], [place], [address], 09/12/2025 22:21:46 11/04/20 25 09/12/2025 [UNIT Y] JAIR Salazar sickle cell disease/beta -thalassemia /hemoglobino pathies carrier screen NEGATI VE normal Not Available [facility] [address], [place], [address], 09/12/2025 22:21:46 09/12/20 25 09/12/2025 [UNIT Y] JAIR Salazar alpha-thalas semia carrier screen NEGATI VE normal Not Available [facility] [address], [place], [address], 09/12/2025 22:21:46 09/12/20 25 09/12/2025 [UNIT Y] JAIR Salazar cystic fibrosis carrier screen NEGATI VE normal Not Available [facility] [address], [place], [address], 09/12/2025 22:21:46 09/12/20 25 09/12/2025 [UNIT Y] JAIR Salazar spinal muscular atrophy carrier screen NEGATI VE 2 SMN1 copies , SNP not presen t normal Not Available [facility] [address], [place], [address], 09/12/2025 22:21:46 09/12/20 25 09/12/2025 [UNIT Y] JAIR Salazar for detailed report, see pdf See PDF normal Not Available [facility] [address], [place], [address], 09/12/2025 22:21:46 09/12/20 25 09/12/2025 [UNIT Y] ANEUP LOIDY NIPT fraction 9.4% normal Not Available [facility] [address], [place], [address], 09/12/2025 23:39:13 09/12/20 25 09/12/2025 [UNIT Y] ANEUP LOIDY NIPT 22Q11.2 microdeletio n LOW RISK <1 in 10,000 normal Not Available [facility] [address], [place], [address], 09/12/2025 23:39:13 09/12/20 25 09/12/2025 [UNIT Y] ANEUP LOIDY NIPT sex chromosome aneuploidy NOT DETECT ED normal Not Available [facility] [address], [place], [address], 09/12/2025 23:39:13 09/12/20 25 09/12/2025 [UNIT Y] ANEUP LOIDY NIPT monosomy X LOW RISK <1 in 10,000 normal Not Available [facility] [address], [place], [address], 09/12/2025 23:39:13 09/12/20 25 09/12/2025 [UNIT Y] ANEUP LOIDY NIPT trisomy 13 LOW RISK <1 in 10,000 normal Not Available [facility] [address], [place], [address], 09/12/2025 23:39:13 09/12/20 25 09/12/2025 [UNIT Y] ANEUP LOIDY NIPT trisomy 18 LOW RISK <1 in 10,000 normal Not Available [facility] [address], [place], [address], 09/12/2025 23:39:13 09/12/20 25 09/12/2025 [UNIT Y] ANEUP LOIDY NIPT trisomy 21 LOW RISK <1 in 10,000 normal Not Available [facility] [address], [place], [address], 09/12/2025 23:39:13 09/12/20 25 09/12/2025 [UNIT Y] ANEUP LOIDY NIPT sex MALE normal Not Available [facility] [address], [place], [address], 09/12/2025 23:39:13 09/12/20 25 09/12/2025 [UNIT Y] ANEUP LOIDY NIPT gestation SINGLE TON normal Not Available [facility] [address], [place], [address], 09/12/2025 23:39:13 09/12/20 25 09/12/2025 [UNIT Y] ANEUP LOIDY NIPT for detailed report, see pdf See PDF normal Not Available [facility] [address], [place], [address], 09/12/2025 23:39:13 07/27/20 25 07/27/2025 URINA LYSIS , WITH MICRO SCOPI C color, urine Yellow Not Available [facility] (Lab) [address], [place], [address], 08/01/2025 15:41:42 07/27/20 25 07/27/2025 URINA LYSIS , WITH MICRO SCOPI C appearance, urine Turbid abnormal Not Available [facility] (Lab) [address], [place], [address], 08/01/2025 15:41:42 07/27/20 25 07/27/2025 URINA LYSIS , WITH MICRO SCOPI C specific gravity, urine 1.025 . 1.005- 1.030 Not Available [facility] (Lab) [address], [place], [address], 08/01/2025 15:41:42 07/27/20 25 07/27/2025 URINA LYSIS , WITH MICRO SCOPI C pH, urine 6.0 . 5.0-7. 0 Not Available [facility] (Lab) [address] [place], [address], 08/01/2025 15:41:42 07/27/20 25 07/27/2025 URINA LYSIS , WITH MICRO SCOPI C protein, UA 10 mg/dL negati ve, 10 , 20 Not Available [facility] (Lab) [address] [place], [address], 08/01/2025 15:41:42 07/27/20 25 07/27/2025 URINA LYSIS , WITH MICRO SCOPI C glucose, urine Normal mg/dL normal Not Available [facility] (Lab) [address], [place], [address], 08/01/2025 15:41:42 07/27/20 25 07/27/2025 URINA LYSIS , WITH MICRO SCOPI C ketones, urine Negati ve mg/dL negati ve Not Available [facility] (Lab) [address], [place], [address], 08/01/2025 15:41:42 07/27/20 25 07/27/2025 URINA LYSIS , WITH MICRO SCOPI C bilirubin, urine Negati ve negati ve Not Available [facility] (Lab) [address], [place], [address], 08/01/2025 15:41:42 07/27/20 25 07/27/2025 URINA LYSIS , WITH MICRO SCOPI C blood, urine 1+ negati ve abnormal Not Available [facility] (Lab) [address], [place], [address], 08/01/2025 15:41:42 07/27/20 25 07/27/2025 URINA LYSIS , WITH MICRO SCOPI C nitrite, urine 1+ negati ve abnormal Not Available [facility] (Lab) [address], [place], [address], 08/01/2025 15:41:42 07/27/20 25 07/27/2025 URINA LYSIS , WITH MICRO SCOPI C leukocyte esterase, urine Negati ve mary jane/u L negati ve Not Available [facility] (Lab) [address], [place], [address], 08/01/2025 15:41:42 07/27/20 25 07/27/2025 URINA LYSIS , WITH MICRO SCOPI C urobilinogen , urine Normal mg/dL normal Not Available [facility] (Lab) [address], [place], [address], 08/01/2025 15:41:42 07/27/20 25 07/27/2025 URINA LYSIS , WITH MICRO SCOPI C RBC, urine 3-5 /hpf 0-2 abnormal Not Available [facility] (Lab) [address], [place], [address], 08/01/2025 15:41:42 07/27/20 25 07/27/2025 URINA LYSIS , WITH MICRO SCOPI C WBC, urine 0-5 /hpf 0-5 Not Available [facility] (Lab) [address], [place], [address], 08/01/2025 15:41:42 07/27/20 25 07/27/2025 URINA LYSIS , WITH MICRO SCOPI C bacteria, urine 1+ /hpf abnormal Not Available [facility] (Lab) [address], [place], [address], 08/01/2025 15:41:42 07/27/20 25 07/27/2025 URINA LYSIS , WITH MICRO SCOPI C squamous epithelial cells, urine 6-10 /hpf Not Available [facility] (Lab) [address] [place], [address], 08/01/2025 15:41:42 07/27/20 25 07/27/2025 BHCG, QUANT ITATI VE B-HCG 325.0 mIU/m L 0.0-4. 9 high This assay was perfo rmed using [employer] ratio n reage nts and test kits. Value s obtai tiana with other assay metho ds or kits canno t be used inter hniojosa eably . Refer ence Range s: Non-p regna nt, preme nopau ana women : 0.0-4 .9 mIU/m L Postm enopa usal women : 0.0-7 .0 mIU/m L Dominga l Pregn navjot: Gesta morgan l Age bHCG Conc. - mIU/m L 3 Weeks 5.8 - 71.7 4 Weeks 9.5 - 750 5 Weeks 217-7 138 6 Weeks 158 - 31,79 5 7 Weeks 3,697 - 162,5 63 8 Weeks 32,06 5 - 149,5 71 9 Weeks 63,80 3 - 151,4 10 10 Weeks 46,50 9 - 186,9 77 12 Weeks 27,83 2 - 210,6 12 14 Weeks 13,95 0 - 62,53 0 15 Weeks 12,03 9 - 70,97 1 16 Weeks 9,040 - 56,45 1 17 Weeks 8,175 - 55,86 8 18 Weeks 8,099 - 58,17 6 Not Available [facility] (Lab) [address] [place], [address], 08/01/2025 15:41:43 07/27/20 25 07/27/2025 [facility] SWAB, IRMA bacterial vaginosis (bv), tma Negati ve negati ve This test detec ts ribos omal RNA from bacte marge assoc iated with bacte rial vagin osis (BV), inclu ding Lacto bacil cherri (L. gasse ri, L. crisp atus and L. jense mukesh), Gardn erell a vagin solo, and Atopo bium vagin ae by Trans cript ion-M ediat ed Ampli ficat ion (TMA) . A singl e quali tativ e resul t is repor sanjay based on instr ument softw are to deter mine BV posit rogelio or negat rogelio statu s. Not Available [facility] (Lab) [address] [place], [address], 08/01/2025 15:41:43 07/27/20 25 07/27/2025 [facility] SWAB, IRMA gloria species, tma Positi ve negati ve abnormal Not Available [facility] (Lab) [address] [place], [address], 08/01/2025 15:41:43 07/27/20 25 07/27/2025 [facility] SWAB, IRMA gloria glabrata, tma Negati ve negati ve Not Available [facility] (Lab) [address] [place], [address], 08/01/2025 15:41:43 07/27/20 25 07/27/2025 [facility] SWAB, IRMA trichomonas vaginalis, tma Negati ve negati ve This assay tests for and diffe renti ates betwe en Nicole da glabr radha, the Nicole da speci es group (C. albic ans, C. tropi calis , C. parap onel is, C. dubli niens is), and Trich omona s vagin solo by Trans cript ion-M ediat ed Ampli ficat ion (TMA) . Not Available [facility] (Lab) [address] [facility], [place], [address], 08/01/2025 15:41:43 07/27/2007/27/2025 IMAGE GUIDE D PAP, REFLE X HPV IF ASCUS ONLY image guided Pap, reflex HPV ASCUS only SEE RESULT S BELOW CASE REPOR T: Cytol ogy Gynec ologi andrzej Repor t Case: [id number] Autho nestor lee Provi lynn: Johanna Manzano, ALEJANDRO Cope cted: 07/27 1138 Order ing Locat ion: [place] Patho [facility] Recei marija: 07/28 0937 First Scree n: Sohail Tomlinson, CT Speci men: Scree ellis Pap - Image d, Cervi x STATE MENT OF ADEQU ACY: Satis facto ry for evalu ation Trans forma tion zone compo nent prese nt ----- ----- ----- ----- ----- ----- ----- ----- ----- ----- ----- ----- ----- ----- ----- ----- ----- ---- FINAL DIAGN OSIS: Negat rogelio for Intra epith elimelissa salazar or Carmina adhikari (NIL) . Elect irlanda gavin shay d by Sohail Tomlinson, CT on 2024 at 1439 CDT ----- ----- ----- ----- ----- ----- ----- ----- ----- ----- ----- ----- ----- ----- ----- ----- ----- ---- COMME NT: This speci men was revie wed by a Cytot echno logis t and/o r Patho logis t (as indic ated in this repor t) after evalu ation using the Thinp rep Imagi ng Syste m. CLINI ANDRZEJ INFOR MATIO N: Menst rual Statu s: LMP (if appli cable ): Clini andrzej Histo ry/Pr eviou s Pap: Type of Neopl kassidy (if appli cable ): Signi fican t Clini andrzej Findi ngs: Other Histo ry: Hormo radha (if appli cable ): PAP EDUCA MORGAN L NOTE: The Pap Test is a scree ellis test with an inher ent false negat rogelio rate. Liqui d-bas ed sampl ing may decre ase, but will not elimi gentry, false negat rogelio resul ts. A negat rogelio resul t does not precl ude the prese nce and/o r devel opmen t of disea se, since the prese nce of abnor mal cells in the sampl e depen ds on the locat ion of the lesio n and sampl ing techn ique. Cecilia nued regul ar scree ellis is the best metho d of cance r preve ntion . If repor sanjay cytol ogic findi ng do not corre late with physi andrzej and/o r histo rical findi ngs, furth er inves tigat ion is recom evelyn d, as vazquezi victoriano barajas nted. Not Available [facility] (Lab) [address], [place], [address], 08/01/2025 15:41:44 07/27/20 25 07/27/2025 CT/GC AND TRICH OMONA S VAGIN SOLO (RRNA ), THINP REP VIAL CT/GC and trichomonas vaginalis (rrna), thinprep SEE RESULT S BELOW negati ve CHLAM YDIA TRACH OMATI S, PCR: Negat rogelio NEISS ERIA GONOR RHOEA E, PCR: Negat rogelio TRICH OMONA S VAGIN SOLO RIBOS OMAL RNA (RRNA ): Negat rogelio Not Available [facility] (Lab) [address] [facility] [facility], [place], [address], 08/01/2025 15:41:45 07/27/20 25 07/27/2025 CULTU RE: URINE result report SEE RESULT S BELOW Test: Cultu re: Urine Speci men Sourc e: Urine - Clean Catch Speci men Type: Urine Speci men Date: 2024 1138 Resul t Date: 2024 2239 Resul t Statu s: Final resul t Abnor mal: No Resul ting Lab: [facility] [address] [facility] [address] Tel: [phone] CULTU RE ----- ----- ----- --- Cultu re resul t (>=3 organ isms prese nt) indic ates possi ble conta minat ion. Repea t cultu re if sympt oms indic ate. Not Available [facility] (Lab) [address] [place], [address], 08/01/2025 15:41:45 07/27/20 25 07/27/2025 urina lysis , dipst ick Nitrite + Not Available [facility] [address], [place], [address], 07/27/2025 11:42:44 07/27/20 25 07/27/2025 urina lysis , dipst ick Protein + Not Available [facility] [address], [place], [address], 07/27/2025 11:42:44 07/27/20 25 07/27/2025 urina lysis , dipst ick pH 6 Not Available [facility] [address], [place], [address], 07/27/2025 11:42:44 07/27/20 25 07/27/2025 urina lysis , dipst ick Blood +++ Not Available [facility] [address], [place], [address], 07/27/2025 11:42:44 07/27/20 25 07/27/2025 urina lysis , dipst ick Specific Markle 1.025 Not Available [facility] [address], [place], [address], 07/27/2025 11:42:44 07/27/20 25 07/27/2025 urina lysis , dipst ick Glucose + Not Available [facility] [address], [place], [address], 07/27/2025 11:42:44 07/27/20 25 07/27/2025 pregn navjot test, urine HCG positi ve Not Available [facility] [address], [place], [address], 07/27/2025 11:42:37 08/01/20 25 08/01/2025 BHCG, QUANT ITATI VE B-HCG 3550.0 mIU/m L 0.0-4. 9 high This assay was perfo rmed using [employer] n reage nts and test kits. Value s obtai tiana with other assay metho ds or kits canno t be used inter hinojosa eably . Refer ence Range s: Non-p regna nt, preme nopau ana women : 0.0-4 .9 mIU/m L Postm enopa usal women : 0.0-7 .0 mIU/m L Dominga l Pregn navjot: Gesta morgan l Age bHCG Conc. - mIU/m L 3 Weeks 5.8 - 71.7 4 Weeks 9.5 - 750 5 Weeks 217-7 138 6 Weeks 158 - 31,79 5 7 Weeks 3,697 - 162,5 63 8 Weeks 32,06 5 - 149,5 71 9 Weeks 63,80 3 - 151,4 10 10 Weeks 46,50 9 - 186,9 77 12 Weeks 27,83 2 - 210,6 12 14 Weeks 13,95 0 - 62,53 0 15 Weeks 12,03 9 - 70,97 1 16 Weeks 9,040 - 56,45 1 17 Weeks 8,175 - 55,86 8 18 Weeks 8,099 - 58,17 6 Not Available [facility] (Lab) [address] [facility] [facility], [place], [address], 08/02/2025 07:09:42 08/01/20 25 08/01/2025 TYPE/ RH/SC REEN ABO/Rh type A POS Not Available [facility] (Lab) [address], [place], [address], 08/02/2025 07:09:42 08/01/20 25 08/01/2025 TYPE/ RH/SC REEN antibody screen NEG Not Available [facility] (Lab) [address] [facility] [address], [place], [address], 08/02/2025 07:09:42 08/01/20 25 08/01/2025 TYPE/ RH/SC REEN exp date 2024 23:59 Not Available [facility] (Lab) [address] [place], [address], 08/02/2025 07:09:42 09/05/20 25 09/05/2025 HEPAT ITIS B SURFA CE ANTIG EN hepatitis B surface antigen Non-re active non-re active The test metho d is elect aldo milum inesc ence immun oassa y perfo rmed on the [employer] e801. Value s obtai tiana with diffe rent assay metho ds by other labor atori es canno t be used inter hinojosa eably . Not Available [facility] (Lab) [address], [place], [address], 09/06/2025 17:08:09 09/05/20 25 09/05/2025 HEPAT ITIS C ANTIB EDD SCREE N, REFLE X TO CONFI RMATI ON hepatitis C antibody Non-re active non-re active Antib odies to HCV Not Detec sanjay, does not exclu de the possi bilit y of expos ure to HCV. The test metho d is elect aldo milum inesc ence immun oassa y perfo rmed on the [employer] e801. Value s obtai tiana with diffe rent assay metho ds by other labor atori es canno t be used inter hinojosa eably . Not Available [facility] (Lab) [address] [facility], [place], [address], 09/06/2025 17:08:10 09/05/20 25 09/05/2025 HIV 1/2 ANTIG EN/AN TIBOD Y, REFLE X CONFI RMATI ON HIV antigen/anti body Nonrea ctive nonrea ctive HIV-1 antig en and HIV-1 /HIV- 2 antib odies were not detec sanjay. No labor atory evide nce of HIV infec tion. Not Available [facility] (Lab) [address] [facility], [place], [address], 09/06/2025 17:08:10 09/05/20 25 09/05/2025 CBC W/DIF F WBC 7.8 10'3/ uL 3.5-10 .5 Not Available [facility] (Lab) [address] [facility], [place], [address], 09/06/2025 17:08:11 09/05/20 25 09/05/2025 CBC W/DIF F RBC 3.92 10'6/ uL (based on docume nted legal sex) 3.80-5 .20 Not Available [facility] (Lab) [address] [facility], [place], [address], 09/06/2025 17:08:11 09/05/20 25 09/05/2025 CBC W/DIF F HGB 11.8 g/dL (based on docume nted legal sex) 11.6-1 5.4 Not Available [facility] (Lab) [address], [place], [address], 09/06/2025 17:08:11 09/05/20 25 09/05/2025 CBC W/DIF F HCT 35.9 % (based on docume nted legal sex) 34.0-4 5.0 Not Available [facility] (Lab) [address] [facility], [place], [address], 09/06/2025 17:08:11 09/05/20 25 09/05/2025 CBC W/DIF F MCV 91.6 fL 80.0-9 9.0 Not Available [facility] (Lab) [address], [place], [address], 09/06/2025 17:08:11 09/05/20 25 09/05/2025 CBC W/DIF F MCH 30.1 pg 27.0-3 4.0 Not Available [facility] (Lab) [address], [place], [address], 09/06/2025 17:08:11 09/05/20 25 09/05/2025 CBC W/DIF F MCHC 32.9 g/dL 32.0-3 5.5 Not Available [facility] (Lab) [address] [place], [address], 09/06/2025 17:08:11 09/05/20 25 09/05/2025 CBC W/DIF F RDW 13.2 % 11.0-1 5.0 Not Available [facility] (Lab) [address] [facility], [place], [address], 09/06/2025 17:08:11 09/05/20 25 09/05/2025 CBC W/DIF F plt 269 10'3/ uL 150-40 0 Not Available [facility] (Lab) [address] [facility], [place], [address], 09/06/2025 17:08:11 09/05/20 25 09/05/2025 CBC W/DIF F MPV 11.0 fL 8.8-12 .1 Not Available [facility] (Lab) [address] [facility], [place], [address], 09/06/2025 17:08:11 09/05/20 25 09/05/2025 CBC W/DIF F NRBC's 0.0 % 0.0 Not Available [facility] (Lab) [address] [facility], [place], [address], 09/06/2025 17:08:11 09/05/20 25 09/05/2025 CBC W/DIF F absolute NRBCs 0.0 10'3/ uL no refere nce range establ ished Not Available [facility] (Lab) [address] [facility], [place], [address], 09/06/2025 17:08:11 09/05/20 25 09/05/2025 CBC W/DIF F neutrophils 68.8 % 34.0-7 3.0 Not Available [facility] (Lab) [address] [facility], [place], [address], 09/06/2025 17:08:11 09/05/20 25 09/05/2025 CBC W/DIF F lymphocytes 22.0 % 15.0-5 0.0 Not Available [facility] (Lab) [address] [facility], [place], [address], 09/06/2025 17:08:11 09/05/20 25 09/05/2025 CBC W/DIF F monocytes 7.2 % 1.0-15 .0 Not Available [facility] (Lab) [address] [facility], [place], [address], 09/06/2025 17:08:11 09/05/20 25 09/05/2025 CBC W/DIF F eosinophils 1.3 % 0.0-8. 0 Not Available [facility] (Lab) [address] [facility], [place], [address], 09/06/2025 17:08:11 09/05/20 25 09/05/2025 CBC W/DIF F basophils 0.4 % 0.0-2. 0 Not Available [facility] (Lab) [address] [facility], [place], [address], 09/06/2025 17:08:11 09/05/20 25 09/05/2025 CBC W/DIF F immature granulocytes 0.3 % no define d refere nce range Immat ure Granu locyt es (IG) repre sents autom ated enume ratio n of Metam yeloc ytes, Myelo cytes and Promy elocy du when IG is < 5%. Blast s are not inclu ded in IG and repor sanjay separ ately if prese nt. Not Available [facility] (Lab) [address] [facility], [place], [address], 09/06/2025 17:08:11 09/05/20 25 09/05/2025 CBC W/DIF F absolute neutrophils 5.4 10'3/ uL 1.5-8. 0 Not Available [facility] (Lab) [address] [facility], [place], [address], 09/06/2025 17:08:11 09/05/20 25 09/05/2025 CBC W/DIF F absolute lymphocytes 1.7 10'3/ uL 1.0-4. 0 Not Available [facility] (Lab) [address] [facility], [place], [address], 09/06/2025 17:08:11 09/05/20 25 09/05/2025 CBC W/DIF F absolute monocytes 0.6 10'3/ uL 0.2-1. 0 Not Available [facility] (Lab) [address] [facility], [place], [address], 09/06/2025 17:08:11 09/05/20 25 09/05/2025 CBC W/DIF F absolute eosinophils 0.1 10'3/ uL 0.0-0. 6 Not Available [facility] (Lab) [address], [place], [address], 09/06/2025 17:08:11 09/05/20 25 09/05/2025 CBC W/DIF F absolute basophils 0.0 10'3/ uL 0.0-0. 3 Not Available [facility] (Lab) [address], [place], [address], 09/06/2025 17:08:11 09/05/20 25 09/05/2025 CBC W/DIF F absolute immature granulocytes 0.0 10'3/ uL 0.00-0 .10 Refer ence range s for nonbi nary/ inter sex or unspe cifie d gende r patie nts have not been estab lishe d. Pleas e refer to the alisao wing table for range s estab lishe d for cisge nder patie nts and evalu ate in the clini andrzej maya xt of the indiv idual patie nt: https ://erika thapa book. nm.or g/gen derx Not Available [facility] (Lab) [address], [place], [address], 09/06/2025 17:08:11 09/05/20 25 09/05/2025 RUBEL LA IGG ANTIB EDD, QUANT rubella antibodies, IgG Reacti ve reacti ve Not Available [facility] (Lab) [address] , [place], [address], 09/06/2025 17:08:11 09/05/20 25 09/05/2025 RUBEL LA IGG ANTIB EDD, QUANT rubella antibodies, IgG quant 43.4 IU/mL >=10 Non-r eacti ve (Non- Immun e) <10 IU/mL React rogelio (Immu ne) > or = 10 IU/mL Not Available [facility] (Lab) [address], [place], [address], 09/06/2025 17:08:11 09/05/20 25 09/05/2025 TYPE/ RH/SC REEN ABO/Rh type A POS Not Available [facility] (Lab) [address] [facility], [place], [address], 09/06/2025 17:08:11 09/05/20 25 09/05/2025 TYPE/ RH/SC REEN antibody screen NEG Not Available [facility] (Lab) [address], [place], [address], 09/06/2025 17:08:11 09/05/20 25 09/05/2025 TYPE/ RH/SC REEN exp date 2024 23:59 Not Available [facility] (Lab) [address] [facility], [place], [address], 09/06/2025 17:08:11 09/05/20 25 09/05/2025 HEMOG LOBIN A1C hemoglobin A1C 4.7 % 4.0-5. 6 The Ameri can Diabe du Assoc iatio n recom mends that a prima ry goal of thera py octavia d be a HBA1C of < 7% and that physi cians shoul d reeva luate the treat ment regim en in patie nts with HBA1C value s consi stent ly > 8%. <5.7% Dominga l 5.7 - 6.4% Incre ased risk for diabe du >=6.5 % Diagn ostic of diabe du <7.0% Goal of thera py >8.0% Actio n sugge sted Not Available [facility] (Lab) [address] [facility], [place], [address], 09/06/2025 17:08:12 09/05/20 25 09/05/2025 RPR SCREE N, REFLE X TITER /CONF IRMAT ION RPR qualitative Nonrea ctive nonrea ctive Not Available [facility] (Lab) [address] [facility], [place], [address], 09/06/2025 17:08:12 09/05/20 25 09/05/2025 LEAD, BLOOD (ADUL T/PED IATRI C) lead, whole blood <1.0 mcg/d L <3.5 See Note 1 Molina sis was perfo rmed by Marlen Mccord ed Plasm a Mass Spect romet ry (ICPM S) Note 1 This test was devel oped and its molina tical perfo rmanc e sonu cteri stics have been deter mined by [employer] ostic s. It has not been clear ed or appro marija by the FDA. This assay has been valid ated pursu ant to the CLIA regul ation s and is used for clini andrzej purpo ses. Perfo rming Organ izati on Infor matio n: Site ID: CB Name: [employer] ostic s-Angel choudhary Alex Addre ss: [id number] [place] [address] Direc tor: Neena Lawson s Not Available [facility] (Lab) [address] [facility], [place], [address], 09/06/2025 17:08:12 09/29/20 25 09/29/2025 drug scree n, urine Amphetamines : negati ve Not Available [facility] [address], [place], [address], 09/29/2025 10:34:04 09/29/20 25 09/29/2025 drug scree n, urine Cannabinoids : negati ve Not Available [facility] [address], [place], [address], 09/29/2025 10:34:04 09/29/20 25 09/29/2025 drug scree n, urine Cocaine: negati ve Not Available [facility] [address], [place], [address], 09/29/2025 10:34:04 09/29/20 25 09/29/2025 drug scree n, urine Opiates: negati ve Not Available [facility] [address], [place], [address], 09/29/2025 10:34:04 09/29/20 25 09/29/2025 drug scree n, urine Phenocyclidi ne: negati ve Not Available [facility] [address], [place], [address], 09/29/2025 10:34:04 09/29/20 25 09/29/2025 drug scree n, urine Barbiturates : negati ve Not Available [facility] [address], [place], [address], 09/29/2025 10:34:04 09/29/20 25 09/29/2025 drug scree n, urine Benzodiazepi radha: negati ve Not Available [facility] [address], [place], [address], 09/29/2025 10:34:04 09/29/20 25 09/29/2025 drug scree n, urine Ethanol: negati ve Not Available [facility] [address], [place], [address], 09/29/2025 10:34:04 09/29/20 25 09/29/2025 drug scree n, urine Hallucinogen s: negati ve Not Available [facility] [address], [place], [address], 09/29/2025 10:34:04 09/29/20 25 09/29/2025 drug scree n, urine Inhalants: negati ve Not Available [facility] [address], [place], [address], 09/29/2025 10:34:04 09/29/20 25 09/29/2025 drug scree n, urine Anabolic Steroids: negati ve Not Available [facility] [address], [place], [address], 09/29/2025 10:34:04 09/29/20 25 09/29/2025 drug scree n, urine Other: negati ve Not Available [facility] [address], [place], [address], 09/29/2025 10:34:04 08/22/20 25 08/22/2025 US, obste tric, 1st trime ster No observ ation record ed. [email or web address] [address], [place], [address], 08/23/2025 12:42:54 09/26/20 25 09/26/2025 US, obste tric, nucha l trans lucen cy No observ ation record ed. [email or web address] [facility] [address], [place], [address], 09/26/2025 18:23:11 09/26/20 25 09/26/2025 US, obste tric, nucha l trans lucen cy No observ ation record ed. [email or web address] [address], [place], [address], 09/27/2025 12:04:05 Result Notes None recorded. Problems Name Problem SNOMED Code Status Onset Date Resolution Date Notes Provider Name and Address Organization Details Recorded Time Abnormal cervical Papanico laou smear 451089012 Active repap postpart um Suellen Arceole [facility], [facility] 3 16:14:24 Electron ic cigarett e user [id number] Active quit Brityaa Arceole [facility], [facility] 3 16:14:24 Abnormal cervical Papanico laou smear 688954176 Completed repap postpart um Suellen Arceole [facility], [facility] 3 16:14:24 Electron ic cigarett e user [id number] Completed quit Suellen Arceole [facility], [facility] 3 16:14:24 Mixed anxiety and depressi ve disorder 872150700 Completed Celexa 40mg. 2/7 - hydroxyz ine as needed Suellen Mccoy [facility] 3 16:14:24 Acute vaginiti s 65473632 Completed 201511/06/2021 Acute vaginiti s;Record ed Elsewher e: No Locat ion: [facility] S ource: EHR Machine Feed Operator juan: N Practi ce ID: 0001 Tony lable Time: 02:45:00 PM Beth Kay [facility] 17:35:58 Syphilis test finding 802968558 Completed 201511/06/2021 Encntr screen for infectio ns w sexl mode of transmis s;Practi ce ID: 0001 Beth Kay [facility] 17:36:26 Infectio n screenin g Completed 201511/06/2021 Encounte r for screenin g for oth infec/pa rastc diseases ;Practic e ID: 0001 Beth Kay [facility] 17:36:[address] Concept Completed 201511/06/2021 Encntr for routine child health exam w/o abnormal findings ;Recorde d Elsewher e: No Locat ion: [facility] hector [facility] S ource: EHR Machine Feed Operator juan: N Practi ce ID: 0001 Tony lable Time: 02:45:00 PM Beth Kay [facility] 17:36:21 Finding of regulari ty of menstrua l cycle Completed 201511/06/2021 Irregula r menstrua tion, unspecif ied;Prac yvonne ID: 0001 Beth Kay [facility] 17:36:09 Pregnanc y test negative 832871371 Completed 201511/06/2021 Encounte r for pregnanc y test, result negative ;Practic e ID: 0001 Beth Kay [facility], [facility] 17:36:17 Finding of general energy 736206279 Completed 201511/06/2021 Other fatigue; Recorded Elsewher e: No Locat ion: [facility] S ource: EHR Machine Feed Operator juan: N Practi ce ID: 0001 Tony lable Time: 01:15:00 PM Beth Kay [facility] 17:36:07 Finding of defecati on Completed 201511/06/2021 Constipa tion, unspecif ied;Prac yvonne ID: 0001 Beth Kay [facility] 17:36:06 Procedur e by method Completed 201611/06/2021 Encounte r for other general counseli ng and advice on contrace ption;Re corded Elsewher e: No Locat ion: [facility] S ource: EHR Machine Feed Operator juan: N Practi ce ID: 0001 Tony lable Time: 09:45:00 AM Beth Kay [facility] 17:36:04 Procedur e Completed 201611/06/2021 Enctr srvlnc implanta ble subderma l contrace ptive;Pr actice ID: 0001 Beth Kay [facility] 17:36:[address] Concept Completed 201611/06/2021 Encounte r for surveill ance of other contrace ptives;R ecorded Elsewher e: No Locat ion: [facility] S ource: EHR Machine Feed Operator juan: N Practi ce ID: 0001 Tony lable Time: 02:45:00 PM Beth Kay [facility] 17:36:24 Finding of sensatio n of breast Completed 201711/06/2021 Mastodyn ia;Pract ice ID: 0001 Beth Kay [facility] 17:36:11 Pelvic and perineal pain 074640104 Completed 201711/06/2021 Pelvic and perineal pain;Pra ctice ID: 0001 Beth Kay [facility] 17:36:16 Nausea 737101716 Completed 201711/06/2021 Nausea;P ractice ID: 0001 Beth Kay [facility] 17:36:14 Urinary tract infectio us disease 32444848 Completed 201811/06/2021 Urinary tract infectio n, site not specifie d;Practi ce ID: 0001 Beth Kay [facility] 17:36:27 Lesion of ovary Completed 201811/06/2021 Other ovarian cyst, left side;Rec orded Elsewher e: No Locat ion: [facility] S ource: EHR Machine Feed Operator juan: N Practi ce ID: 0001 Tony lable Time: 04:30:00 PM Beth Kay [facility] 17:36:02 Disorder of breast 11559813 Completed 201811/06/2021 Disorder of breast, unspecif ied;Prac yvonne ID: 0001 Beth Kay [facility] 17:36:[address] Concept Completed 201811/06/2021 Encntr for musical instrument maker exam (general ) (routine ) w/o abn findings ;Recorde d Elsewher e: No Locat ion: [facility] S ource: EHR Machine Feed Operator juan: N Practi ce ID: 0001 Tony lable Time: 01:00:00 PM Beth Kay [facility] 17:36:22 Pregnanc y 87050388 Completed 202104/24/2023 Estrella Murphy [facility] 5 09:55:37 COVID-19 386188108 Completed 2022 ASA & serial growth Suellen Mccoy [facility] 3 16:14:24 Anemia 621704919 Completed 2022 1 tab BID slowfe daily Suellen Mccoy [facility] 3 16:14:24 Mixed anxiety and depressi ve disorder 703942105 Active 2024 amari Gordillo MD [address], [place], [address], [facility] 5 10:27:37 Pregnanc y 63922448 Active 2024 Estrella Murphy [facility], [facility] 5 09:55:37 Mixed anxiety and depressi ve disorder 192719700 Active 2024 amari Gordillo MD [address], [place], [address], [facility] 5 10:27:37 Problem Notes None recorded. Procedures Surgical History Date Name Laterality Status Provider Name and Address Organization Details Recorded Time 5 Date of Last Pap Smear completed Estrella Murphy [facility] 09/29/2025 09:49:51 0 extraction of wisdom tooth completed Dasia Black [facility] 05/08/2020 09:45:39 Imaging Results None recorded. Procedure Notes None recorded. Medical Equipment None Reported. Allergies Allergen ID Allergen Name Allergen Category Reaction Reaction Severity Criticality Documentation Date Start Date Code Code System Note Provider Name and Address Organization Details Recorded Time 972 Product containin g penicilli n (product) medicatio n Not available Not available Not available 04/20/2020 29429 8001 SNOMED Dasia Black kota, [facility] 0 09:47:26 973 Substance with sulfonami de structure and antibacte rial mechanism of action (substanc e) medicatio n Not available Not available Not available 04/20/2020 44806 8003 SNOMED Dasia Armijomahsa escudero, [facility] 0 09:47:36 Medications Name Sig [...] Elsewher e: No Locat ion: [facility] M odify By: jen anderson DateTime : 06/05/20 16 11:17:59 AM Not [...] Prescrib ed Elsewher e: No Locat ion: [facility] odify By: ayan giron DateTime : 01/28/20 19 10:45:00 AM Not [...] Prescrib ed Elsewher e: Yes Loca tion: [facility] odify By: cristiano anderson DateTime : 06/02/20 [...] Prescrib ed Elsewher e: No Locat ion: Carloina hector [facility] odify By: cristiano Murdock r DateTime : 10/13/20 16 01:15:00 PM Not Available Not Available Not Available Zithromax 500 mg tablet take 2 tablet by oral route once 07/29 completed Prescrib ed Elsewher e: No Locat ion: [facility] odify By: jen Murdock r DateTime : [...] ed Elsewher e: No Locat ion: [facility] odify By: jen Murdock r DateTime : 06/02/20 16 02:45:00 PM Not Available Not Available Not Available Unisom (doxylami ne) 07/27 completed Not Available Not Available Not Available 1 daily active Not Available Not Meenakshi ilable Not Available cholecalc iferol (vitamin D3) 1,250 mcg (50,000 unit) capsule 10/07 completed Not Available Not Available Not Available Nexplanon 68 mg subdermal implant 03/03 completed Prescrib ed Elsewher e: No Locat ion: [facility] odify By: cristiano Murdock r DateTime : 09/15/20 16 10:30:00 AM Not Available Not Available Not Available Estarylla 0.25 mg-0.035 mg tablet TAKE 1 TABLET BY MOUTH EVERY DAY 09/01 completed Not Available Not Available Not Available 08/10 completed Not Available Not Available Not [...] and Address Organization Details Last Updated DateTime 07/27/2025 162.56 cm 19.2 kg/m2 57123.35 g 103/66 mm[Hg] Sofia Mazariegos [facility] 07/27/2025 11:06:49 Date Recorded Body height Body mass index (BMI) Body weight Systolic And Diastolic Provider Name and Address Organization Details Last Updated DateTime 08/22/2025 162.56 cm 20.1 kg/m2 06779.31 g 105/67 mm[Hg] Monica Kerr [facility] 08/22/2025 17:58:41 Date Recorded Body height Body mass index (BMI) Body weight Systolic And Diastolic Provider Name and Address Organization Details Last Updated DateTime 09/29/2025 162.56 cm 21 kg/m2 50315.42 g 104/72 mm[Hg] Estrella Murphy [facility] 09/29/2025 09:56:03 Social History Question Answer Notes LastModified by Organizat ion Details LastModified Time Tobacco Smoking Status Former Smoker Zee Arita kota, [facility] 04/17/2023 10:55:29 Do You Have [...] Or Recreational Drugs Have You Used? None [email or web address] Information not available 04/17/2023 What Is The Highest Grade Or Level Of School You Have Completed Or The Highest Degree You Have Received? [id number] [email or web address] Information not available 09/29/2025 Are There Any Guns Present In Your Home? No Information not available 03/04/2021 What Was The Date Of Your Most Recent Tobacco Screening? 06/12/2020 [email or web address] Information not available 04/17/2023 Do You Use Protection During Sex? No Information not available 03/04/2021 Do You Use Your Seat Belt Or Car Seat Routinely? Yes Information not available 03/04/2021 Are You Sexually Active? Yes [email or web address] Information not available 08/22/2025 Do You Have Smoke And Carbon Monoxide Detectors In Your Home? Yes Information not available 03/04/2021 How Much Tobacco Do You Smoke? No [email or web address] Information not available 06/12/2020 Do You Use Sunscreen Routinely? Yes Information not available 03/04/2021 How Many Years Have You Smoked Tobacco? 0 Information not available 03/04/2021 Have You Used IV Drugs? No Information not available 03/04/2021 Do You Have Difficulty Walking Or Climbing Stairs? No [email or web address] Information not available 08/22/2025 Sex: Unknown Functional Status Question Answer Note LastModified by Organizat ion Details LastModified Time Do you use any illicit or recreational drugs? No Information not available 03/04/2021 What is your level of alcohol consumption? None [email or web address] Information not available 09/29/2025 Do you or have you ever used smokeless tobacco? Currently uses moist powdered tobacco [email or web address] Information not available 04/17/2023 Are you currently employed? Yes [email or web address] Information not available 08/22/2025 Are you able to walk independently without assistance or assistive devices? [email or web address] Information not available 03/04/2021 Are you able to care for yourself independently? 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 No Information not available 08/22/2025 Do you or have you ever used e-cigarettes or vape? Current user of electronic cigarettes [email or web address] Information not available 04/17/2023 What is your exercise level? Occasional [email or web address] Information not available 04/20/2020 Mental Status Question Answer Note LastModified by Organization D etails LastModified Time Do you feel stressed (tense, restless, nervous, or anxious, or unable to sleep at night)? [id number] Information not available 11/07/2021 Family History Relationship Description Onset Age of this Age Resolved Age Notes LastModified by Organization Details LastModified Time Maternal Grandmother Diabetes mellitus [email or web address] Not available 04/20 09:49:07 Mother Cyst of ovary [email or web address] Not available 08/09 17:29:30 Medical History Condition Response History of STI Y Anxiety Disorder Y History of abnormal pap Y Depression/ depression Y Gynecological History Statement/Question Response Abnormal Pap [...] ICD10 Code Diagnosis IMO Codes Diagnosis Note [id number] Romina Mcbride [place] [address],[place] [address] 04/20/2020 09:30:49 04/20/2020 10:33:21 Vaginitis 74673956 N76.0 9992 Romina Mcbride [place] [address],[place] [address] 05/08/2020 09:36:26 05/08/2020 09:57:02 Vaginitis 31130917 N76.0 05145 Romina Mcbride [place] [address] [place] [address] 06/12/2020 10:08:26 06/12/2020 10:29:49 Infection by Trichomonas 65859015 A59.9 await culture [id number] [facility] [address],[place] [address] 08/10/2020 14:45:47 08/10/2020 15:13:14 Gynecologic examination 80976922 Z01.419 [id number] Tony Gordillo MD [facility] [address],[place] [address] 03/04/2021 14:50:03 03/04/2021 15:36:59 Contraception care management 760604074 Z30.9 this patient is a 20-year-ol d female presents for follow-up from the ER. She had pelvic pain. She was evaluated there and found have an ovarian cyst. The cyst is about 3.5 cm. It is complex likely filled with blood. She does not have too much pain at this time. She discontinu ed oral contracept rogelio pills several months ago. We agreed to observe the current cyst, but agreed to start oral contracept rogelio pills to prevent cyst formation and . She was given detailed instructio ns on starting pills and precaution s on missed pills. Patient has trouble with low body mass index. She is interested in a pill that may make her gain weight. We agreed to change to Sprintec. We had a detailed discussion about ovarian cyst. She was given informatio n suggesting she might have trouble getting from the emergency department . I dispelled that brennen Allen interprete d her ultrasound results from the hospital in the context of her current clinical situation. Pain in pelvis 88239423 R10.2 Cyst of ovary 12793769 N 83.209 [id number] Tony Gordillo MD [facility] [address],[place] [address] 04/29/2021 13:48:18 04/29/2021 14:59:59 Cyst of right ovary 6893560058 [id number] N83.291 [id number] Tony Gordillo MD [facility] [address],[place] [address] 05/14/2021 12:37:27 05/14/2021 13:04:36 Pain in pelvis 26429947 R10.2 this patient is a 20-year-ol d female with pelvic pain and ovarian cyst that was observed in the emergency department . We performed pelvic ultrasound . It appears normal. We agreed to treat her pelvic pain with oral contracept rogelio pills. She needs contracept ion As well as treatment for pelvic pain. We agreed with 3 month trial of the control. She will return in 3 months. We discussed the ultrasound results in detail. We reviewed her treatment plan. [id number] Kimberley [facility] [address],[facility] [place] [address] 11/07/2021 13:13:37 11/08/2021 18:42:56 Irregular periods 16819366 N92.6 Today we agreed to update TVUS for adnexal pain on exam.Decli tiana need STD screen-mon ogmous relations ipExam was otherwise wnl. Will schedule US & then we can discuss US at [facility] and complete any further testing at that visit.She requested to return to her previous OCP which she tolerated well & liked better than Junel.She is aware to use back up method with this switch x 4wks.HCG neg Time spent in visit is a total of 26 mins with at least 50% of visit consisting of counseling and review of plan of care.Addit ional precaution adalberto measures were taken to minimize potential exposure to the Covid-19 virus during this patient s visit, including available hand product development engineer upon arrive, temperatur e check and being asked a series of screening questions. All staff wore face coverings during this encounter, as well as provided additional cleaning and sanitizing of all surfaces, including countertop s, pens, chairs, door handles, light switches, etc, prior to and following the patient s visit. [id number] Tony Gordillo MD [facility] [address] [address] 11/20/2021 13:58:58 11/20/2021 15:24:14 Irregular periods 98170093 N92.6 [id number] [facility] [address] [address] 11/26/2021 15:08:41 11/26/2021 16:55:05 Gynecologic examination 65451530 Z01.419 Take Calcium with Vitamin D 1200mg daily if not receiving in daily diet. It is strongly advised to have an annual flu shot and up can obtain at most pharmacies . If you have not had a TDap shot in the last 10 years you should obtain one as well. Discussed with patient & provided with informatio n regarding Gardisil vaccine to prevent the 4 strains for HPV that cause cervical cancer. Encourage safe sexual practices, to use condoms and limit partners if not already in a monogamous relationsh ip. Do monthly self breast exams. BRCA testing is now available for patients with strong genetic history of female cancer. If interested contact the office. Engage in daily exercise of low impact aerobic exercise 45-60 minutes 4-5 times weekly. Avoid tobacco, illicit drugs, and alcohol. This lifestyle behavior pattern will lead to less health conditions and longer life span. If BMI greater than 25 weight watchers or dietary consult advised. Pap smear is not recommende d prior to the age of 21. If you have any concerns, pelvic, or vaginal problems we can discuss testing. Patient received above instructio ns, and questions have been answered. If you have any questions please call or respond to this email. Patient was made aware of the patient portal and may obtain a paper copy of today's plan if desired.Pr imary pap next year at 22yoSTD declinedPe lvic pain/rando m cramping resolved.F eeling better after menses startedWil l start her OCP this coming thursdayNOTE : wants updated routine adult labs work including glucose screening but wants to wait until next visit b/c she has not recently eaten anything. Generalize d anxiety disorder [id number] F41.1 RF sentNeg suicidal ideations/ thoughts of self harmstable on this medication Cyst of ovary [id number] N 83.209 TVUS reviewedOp ts to r/p TVUS x 6-8wks with start previous OCP. Patient is to contact office or go to nearest ED/Urgent care if fever >/= 100.1, pain, excessive bleeding, unusual drainage or swelling in area of concern; or experienci ng worsening sx's or new onset of concerning sx's. Understand ing verbalized . [place]. [id number] MD Kimmie [place] [address],[place] [address] 01/09/2022 15:34:19 01/09/2022 16:08:15 Cyst of left ovary [id number] N83.202 [id number] MD Kimmie [place] [address],[place] [address] 09/01/2022 14:06:46 09/01/2022 15:05:43 Uncertain viability of 966551490 O36.80X0 Z3A.01 [id number] MD Brandon [place] [address],[place] [address] 09/01/2022 14:07:17 09/03/2022 15:45:37 test positive 930107380 Z32.01 Candidiasis of vagina 72 772088 B37.31 Venereal d isease screening 489716400 Z11.3 Screening for malignant neoplasm of cervix 385844534 Z12.4 Electronic cigarette user 699291129 Z72.89 Mixed anxi ety and depressive disorder 452739693 F41.8 Vaccination not done 552 7308760 9108 Z28.9 covid [id number] MD Brandon [place] [address],[place] [address] 10/07/2022 10:56:36 10/07/2022 14:29:06 Routine care 163447298 Z34.91 screening 2437 29316 Z36.82 [id number] Monica Luna MD [facility] [address],[place] [address] 10/07/2022 11:01:16 10/08/2022 10:54:55 Routine care 190471153 Z34.91 [id number] Monica Luna MD [place] [address],[place] [address] 11/14/2022 14:08:06 11/14/2022 14:29:55 Routine care 409113823 Z34.91 [id number] Monica Luna MD [facility] [address],[place] [address] 12/08/2022 11:01:45 12/08/2022 12:12:48 screening for malformation 103766962 Z36.3 [id number] Monica Luna MD [facility] [address],[place] [address] 12/08/2022 12:04:04 12/08/2022 12:58:48 Routine care 226946452 Z34.91 [id number] Monica Luna MD [facility] [address],[place] [address] 01/06/2023 11:34:45 01/06/2023 12:23:57 screening 173155872 Z36.2 O99.342 Z86.16 Z3A.24 [id number] MD Brandon [place] [address],[place] [address] 01/06/2023 11:37:07 01/06/2023 13:22:51 Routine care 946116168 Z34.91 Mixed anxi ety and depressive disorder 905617146 F41.8 History of SARS-CoV-2 29 94845079 04554767 Z86.16 [id number] MD Brandon [place] [address],[place] [address] 02/03/2023 14:06:32 02/04/2023 10:58:36 Routine care 789469128 Z34.91 [id number] MD Brandon [place] [address],[place] [address] 02/10/2023 14:30:34 02/10/2023 15:47:18 COVID-19 411706356 U07.1 Z86.16 [id number] MD Brandon [place] [address],[place] [address] 02/10/2023 14:33:12 02/10/2023 15:47:05 Routine care 410338864 Z34.91 Anemia of 2734 2003 O99.019 [id number] MD Brandon [place] [address],[place] [address] 1 02/24/2023 14:13:02 02/24/2023 15:03:44 Routine care 020729014 Z34.91 Mixed anxi ety and depressive disorder 710444749 F41.8 [id number] MD Brandon [place] [address],[place] [address] 03/10/2023 14:20:28 03/10/2023 14:55:46 COVID-19 811377938 U07.1 Z86.16 Z3A.33 [id number] MD Brandon [place] [address],[place] [address] 03/10/2023 14:22:21 03/11/2023 10:22:42 Routine care 966896842 Z34.91 [id number] Monica Luna MD [facility] [address],[place] [address] 03/24/2023 13:51:44 03/24/2023 14:34:38 Routine care 274667776 Z34.91 [id number] Monica Luna MD [place] [address],[place] [address] 04/03/2023 14:10:05 04/03/2023 14:39:59 Routine care 693283169 Z34.91 [id number] Monica Luna MD [place] [address],[place] [address] 04/10/2023 10:14:13 04/10/2023 11:36:56 Routine care 396963087 Z34.91 [id number] Monica Luna MD [facility] [address],[place] [address] 04/17/2023 10:55:13 04/17/2023 11:37:59 Routine care 440505378 Z34.91 [id number] Tony Gordillo MD [facility] [address],[place] [address] 10/27/2023 14:53:07 10/27/2023 16:38:39 screening 138588043 Z36.87 [id number] AFSHIN Ross [place] [address],[place] [address] 07/27/2025 10:50:51 07/27/2025 14:18:17 Urinary symptoms 780194378 R39.9 77121 Ua done, cx sentvagini tis panel sentSTI screen declined Gynecologi c examination 38091463 Z01.339 3406127 WWEPap - done todaySTI screen - declinedRo [...] dietary consult advised. Questions answered. test positive 666724502 Z32.01 444537 UPT (+) todaydiscu ssed result with ptencourag ed daily PNVlabs ordered, will update pt with results when availablep recautions discussed Time spent in visit is a total of 45 mins with at least 50% of visit consisting of counseling and review of plan of care. Vaginal discharge 633026 006 N89.8 42402 [id number] KHADRA BARAKAT MD [facility] [address],[place] [address] 08/22/2025 17:28:12 08/22/2025 17:58:42 [id number] KHADRA BARAKAT MD [facility] [address],[place] [address] 08/22/2025 17:29:27 08/23/2025 08:27:26 test positive 838929472 Z32.01 545086 1. Exam today within normal limits.2. Ultrasound today confirms GA and viability. EDC . GC/Clamydi a testing done: will f/u as indicated. 4. ACOG guidelines and plan of care for reviewed with patient. All questions answered.5 . Return to office at 12 weeks for new OB visit6. Will need new OB labs at next visit.7. Genetic screening: desires. Genetic in vestigation procedure 06059925 Z31.430 Mixed anxi ety and depressive disorder 992219180 F41.8 019881 -continue celexa daily and hydroxyzin e PRN Electronic cigarette user 965118217 Z78.9 32203650 - discussed decreasing use and switching to zero nicotine- encouraged patient with cessation [id number] Tony Gordillo MD [place] [address],[place] [address] 09/26/2025 15:36:27 09/26/2025 16:11:11 screening 169763164 Z36.82 Z3A.13 728640 [id number] Tony Gordillo MD [facility] [address],[place] [address] 09/29/2025 09:43:17 09/29/2025 11:15:50 screening 771127042 Z36.9 [id number] care status 24 1213105 Z34.82 33593056 Health Concerns Section Related Observation LastModified by Organization Detai ls LastModified Time None Recorded Concern Status LastModified by Organization Details LastModified Time None Recorded Advance Directives Directive N: Payers Insurance Date Sequence Insurance Name Policy Number Policy Carbajal Covered Member ID Carbajal Member ID Guarantor Name 10/28/2023 PAYMENT PLAN Emily R Cerda 09/11/2025 1 [place] [facility] Emily R Cerda [id number] Emily R Cerda 01/09/2022 1 [employer] [id number] [address] Cerda [id number] Emily R Cerda 07/24/2025 2 [facility] [id number] Emily R Cerda 09/26/2025 1 *SELF PAY* Pa yten R Cerda 02/24/2023 1 [facility] [employer] [id number] [address] Cerda [id number] Emily R Cerda 10/30/2022 2 [facility] [employer] [id number] [facility] Cerda [id number] Emily R Cerda 05/28/2023 PAYMENT PLAN Emily R Cerda 04/21/2023 2 [employer] (POS II) [id number] [facility] [id number] Emily R Cerda 03/10/2023 PAYMENT PLAN Emily R Cerda 06/27/2025 1 [employer] [id number] [address] Cerda [id number] Emily R Cerda 03/24/2023 PAYMENT PLAN Emily R Cerda Notes Date Note Type Note Provider Name and Address Organization Details Recorded Time text/html Annual GYNReported by PatientGenitourinary symptomsFor menstrual cycle, patient reportsnormal menses. For urinary symptoms, patient reportsno hematuriaandno incontinence. For vulva, patient reportsno genital lesion. For vagina, patient reportsnormal vaginal discharge.Breast symptomsFor breast, patient reportsno breast pain,no breast lump, andno nipple discharge.ContraceptionFo r current contraception, patient reportsbirth control not practiced.Endocrine symptomsFor sexual complaints, patient reportsno sexual complaints,no pain during intercourse, andnormal libido. For menopausal symptoms, patient reportsno menopausal symptomsandnormal vaginal lubrication.Psychological symptomsFor psychological symptoms, patient reportsno depression,no anxiety, andno pmdd.Preventative measuresFor preventive measures, patient reportsencourage self breast examination,encourage regular exercise,encourage no tobacco use, andencourage regular mammograms starting age [age]yo wwe [id number] pap 08/2022 : ascus, HPV (+) previously on OCPs, would like to restart. LMP 06/26 (no bleeding since). Has noticed urinary frequency over the past wk. No dysuria or pelvic pain. Has noticed an increase in vag d/c and irritation at times. AFSHIN Ross [address], [place], [address], [facility] 07/27/2025 13:59:28 text/html Presents to the office today to confirm . Patient denies any problems up to this point with her . Patient denies cramping or vaginal bleeding. Mild nausea. G1: , had contractions, EIL at 39 weeksG2: terminationG3: terminationG4: current Depression: celexa, well controlled; hydroxyzine PRN Patient is in a relationship. Lives with partner. 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 Denies EtOH/illicits. Working on cutting down on vaping. KHADRA BARAKAT MD [address], [place], [address], [facility] 08/22/2025 21:08:10 OBGyn Episode Ob Episode Information Episode Created Date Number of Fetuses Patient Bloodtype Patient rh Status Prepregnancy Weight lbs Domestic Partner Domestic Partner Phone Father Name Lap Cutter Status 10/07/20 22 1 A Positive 109 CLOSED Fetus Data First Name Last Name Admitted to NICU Weight (g) Sex Living Outcome Pediatric Complications Fetus ID Race Codes Race Delivery Type Sebastian 3827.18 25 M true Full Term decel, mild shoulder dystocia 91860 Vaginal Delivery Problems Problem Notes Problem Name Start Date End Date Resolution Snomed Code Not e COVID-19 12/13/2022 [id number] ASA & ser ial growth Anemia 02/16/2023 313696912 1 tab BID slowfe daily Mixed anxiety and depressive disorder 831969273 Celexa 4 0mg. 2/7 - hydroxyzine as needed Abnormal cervical Papanicolaou smear 561155119 repap pos tpartum Electronic cigarette user [id number] quit Karl Calculation Initial Karl Date Initial Exam Date Initial Exam Provider Initial Ultrasound Date Last Menstrual Period Date Ultra Sound Weeks Gestation 04/23/2023 10/07/2022 09/01/2022 07/07/2022 6 Eighteen To Twenty Week Karl Update Ultra Sound Date Fundal Height At Umbil Quickening Date Ultra Sound Latest Weeks Gestation Final Karl Confirmed By Final Karl Confirmed Date Final Karl Date Ultra Sound Latest Days Gestation 0 [email or web address] 10/07/2022 04/23/20 23 0 Pre-steffi Flowsheet Flowsheet Date 10/07/2022 Slater Score Blood Edema Fundus Height Fundus Units Glucose Ketones Leukocytes Nitrite Labor Signs Protein Cervic Dilation Cervic Effacement Cervic Station neg none none trace Type Weight in lbs Pre/Post Dialysis Refused Weight 112.245499354188 BP Diastolic BP Location Tested BP Systolic BP Type 72 106 Fetus Heart Rate Present Fetus Movement A No Comments Flowsheet Date 10/07/2022 Slater Score Blood Edema Fundus Height Fundus Units Glucose Ketones Leukocytes Nitrite Labor Signs Protein Cervic Dilation Cervic Effacement Cervic Station neg none none trace Type Weight in lbs Pre/Post Dialysis Refused BP Diastolic BP Location Tested BP Systolic BP Type Fetus Heart Rate Present A 145 Fetus Movement A No Comments Emily is a 22yo G1 at 11.5 for care. She quit vaping. Her history is noncontributory. We discussed flu and COVID vaccines. She will do the flu shot but declines COVID vaccines. Labs and NIPT today. NT wnl today. Routine care. Flowsheet Date 11/14/2022 Slater Score Blood Edema Fundus Height Fundus Units Glucose Ketones Leukocytes Nitrite Labor Signs Protein Cervic Dilation Cervic Effacement Cervic Station neg none Type Weight in lbs Pre/Post Dialysis Refused Weight 120.901249369275 BP Diastolic BP Location Tested BP Systolic BP Type 70 112 Fetus Heart Rate Present A 145 Fetus Movement A Yes Comments Doing great. No concerns. De nies UTI sx. Will do flu shot. Anatomy next. Flowsheet Date 12/08/2022 Slater Score Blood Edema Fundus Height Fundus Units Glucose Ketones Leukocytes Nitrite Labor Signs Protein Cervic Dilation Cervic Effacement Cervic Station Type Weight in lbs Pre/Post Dialysis Refused BP Diastolic BP Location Tested BP Systolic BP Type Fetus Heart Rate Present Fetus Movement Comments Flowsheet Date 12/08/2022 Slater Score Blood Edema Fundus Height Fundus Units Glucose Ketones Leukocytes Nitrite Labor Signs Protein Cervic Dilation Cervic Effacement Cervic Station neg none none trace Type Weight in lbs Pre/Post Dialysis Refused Weight 123.333839070521 BP Diastolic BP Location Tested BP Systolic BP Type 75 116 Fetus Heart Rate Present A 145 Fetus Movement A Yes Comments Doing well, no concerns. Has n't done flu shot yet, but does plan to. Us today anatomy complete and wnl. Flowsheet Date 01/06/2023 Slater Score Blood Edema Fundus Height Fundus Units Glucose Ketones Leukocytes Nitrite Labor Signs Protein Cervic Dilation Cervic Effacement Cervic Station Type Weight in lbs Pre/Post Dialysis Refused BP Diastolic BP Location Tested BP Systolic BP Type Fetus Heart Rate Present Fetus Movement Comments Flowsheet Date 01/06/2023 Slater Score Blood Edema Fundus Height Fundus Units Glucose Ketones Leukocytes Nitrite Labor Signs Protein Cervic Dilation Cervic Effacement Cervic Station none 26 Type Weight in lbs Pre/Post Dialysis Refused Weight 132.158884412666 BP Diastolic BP Location Tested BP Systolic BP Type 63 97 Fetus Heart Rate Present A 145 Fetus Movement A Yes Comments Doing well. Anxiety a lot be tter, no recent panic attacks, has not needed the hydroxyzine. EPDS 10 today. US today 72%. GCT next, discussed. Discuss Tdap next visit. Flowsheet Date 02/03/2023 Slater Score Blood Edema Fundus Height Fundus Units Glucose Ketones Leukocytes Nitrite Labor Signs Protein Cervic Dilation Cervic Effacement Cervic Station neg none 27 none trace Type Weight in lbs Pre/Post Dialysis Refused Weight 140.065721071174 BP Diastolic BP Location Tested BP Systolic BP Type 77 113 Fetus Heart Rate Present A 145 Fetus Movement A Yes Comments Doing fine. Mood ok, just ti red. GCT and Pb today. DIscussed and encouraged Tdap. Flowsheet Date 02/10/2023 Slater Score Blood Edema Fundus Height Fundus Units Glucose Ketones Leukocytes Nitrite Labor Signs Protein Cervic Dilation Cervic Effacement Cervic Station Type Weight in lbs Pre/Post Dialysis Refused BP Diastolic BP Location Tested BP Systolic BP Type Fetus Heart Rate Present Fetus Movement Comments Flowsheet Date 02/10/2023 Slater Score Blood Edema Fundus Height Fundus Units Glucose Ketones Leukocytes Nitrite Labor Signs Protein Cervic Dilation Cervic Effacement Cervic Station none Type Weight in lbs Pre/Post Dialysis Refused Weight 138.045950726119 BP Diastolic BP Location Tested BP Systolic BP Type 68 103 Fetus Heart Rate Present A 155 Fetus Movement A Yes Comments Doing well. GCT wnl, does no t check messages so did not start iron for anemia, will start soon. will schedule Tdap soon also. US today 60%. Flowsheet Date 02/24/2023 Slater Score Blood Edema Fundus Height Fundus Units Glucose Ketones Leukocytes Nitrite Labor Signs Protein Cervic Dilation Cervic Effacement Cervic Station neg none 30 none trace Type Weight in lbs Pre/Post Dialysis Refused Weight 141.055693064973 BP Diastolic BP Location Tested BP Systolic BP Type 68 112 Fetus Heart Rate Present A 135 Fetus Movement A Yes Comments Doing fine except some left rib pain, discussed comfort measures. Taking iron, Tdap in next couple weeks. Mood ok. Flowsheet Date 03/10/2023 Slater Score Blood Edema Fundus Height Fundus Units Glucose Ketones Leukocytes Nitrite Labor Signs Protein Cervic Dilation Cervic Effacement Cervic Station Type Weight in lbs Pre/Post Dialysis Refused BP Diastolic BP Location Tested BP Systolic BP Type Fetus Heart Rate Present Fetus Movement Comments Flowsheet Date 03/10/2023 Slater Score Blood Edema Fundus Height Fundus Units Glucose Ketones Leukocytes Nitrite Labor Signs Protein Cervic Dilation Cervic Effacement Cervic Station neg trace none trace Type Weight in lbs Pre/Post Dialysis Refused Weight 144.511105082172 BP Diastolic BP Location Tested BP Systolic BP Type 62 110 Fetus Heart Rate Present A 140 Fetus Movement A Yes Comments Was at hospital yesterday wi th contractions, was 1cm, dx with UTI, on abx. Feels much oly today. Preregistration scheduled, doing Tdap soon. US todya 60%, BPP /. Precautions given. Flowsheet Date 03/24/2023 Slater Score Blood Edema Fundus Height Fundus Units Glucose Ketones Leukocytes Nitrite Labor Signs Protein Cervic Dilation Cervic Effacement Cervic Station trace 35 Type Weight in lbs Pre/Post Dialysis Refused Weight 150.490186158270 BP Diastolic BP Location Tested BP Systolic BP Type 72 103 Fetus Heart Rate Present A 140 Fetus Movement A Yes Comments Doing fine. Going to stop ni fedipine now that she was given in triage for ctx. Tdap this week. GBS next week, discussed. Precautions given. Flowsheet Date 04/03/2023 Slater Score Blood Edema Fundus Height Fundus Units Glucose Ketones Leukocytes Nitrite Labor Signs Protein Cervic Dilation Cervic Effacement Cervic Station neg none 36 none trace 2cm 50% -4 Type Weight in lbs Pre/Post Dialysis Refused Weight 154.860757130456 BP Diastolic BP Location Tested BP Systolic BP Type 78 140 Fetus Heart Rate Present A 140 Fetus Movement A Yes Comments Doing ok, pain in ribs, baby high. Tdap today. GBS done. Cervix favorable but vertex ballotable. Precautions given.. FU weekly. Flowsheet Date 04/10/2023 Slater Score Blood Edema Fundus Height Fundus Units Glucose Ketones Leukocytes Nitrite Labor Signs Protein Cervic Dilation Cervic Effacement Cervic Station neg trace 38 none trace 3cm 60% -2 Type Weight in lbs Pre/Post Dialysis Refused Weight 158.095744044264 BP Diastolic BP Location Tested BP Systolic BP Type 78 122 Fetus Heart Rate Present A 130 Fetus Movement A Yes Comments Doing well. More pressure. V ertex much lower than prior. Would like IOL scheduled. Has stopped nifedipine. Precautions given. Flowsheet Date 04/17/2023 Slater Score Blood Edema Fundus Height Fundus Units Glucose Ketones Leukocytes Nitrite Labor Signs Protein Cervic Dilation Cervic Effacement Cervic Station neg trace 39 none trace 3cm 70% -2 Type Weight in lbs Pre/Post Dialysis Refused Weight 157.783212393887 BP Diastolic BP Location Tested BP Systolic BP Type 84 125 Fetus Heart Rate Present A 135 Fetus Movement A Yes Comments Doing ok, was in hosp yester day with contractions, still 3cm went away. IOL Thursday, discussed, questions answered. GBS neg. Precautions. Menstrual History Last Menstrual Date Menses Monthly On Bcp Conception Prior Menses Frequency Hcg Plus Date Menarche Onset Age 0807/07/2022 Genetic Screening And Infection History Question Response Note Mental Retardation/Autism false Patient's Age Will Be 35 Years Or Older At Estim ated Date of Delivery false Thalassemia (Tunisian, Japanese, Mediterranean, Or Background): MCV < 80 false Neural Tube Defect (Meningomyelocele, Spina Bifi da, Or Anencephaly) false Congenital Heart Defect false Down Syndrome false Wilmar-Sachs (eg, Jain, Cajun, Liberian-Kosovan) f alse Randolph Disease false Sickle Cell Disease Or Trait () false Hemophilia Or Other Blood Disorders false Muscular Dystrophy false Cystic Fibrosis false Emmet's Chorea false Intellectual Disability/Autism false If Yes, Was Person Tested For Fragile X? false Other Inherited Genetic Or Chromosomal Disorder false Maternal Metabolic Disorder (eg, Type 1 Diabetes , PKU) false Patient Or Baby's Father Had A Child With Defects Not Listed Above false Recurrent Loss, Or A Stillbirth false Medications (including Suppl ements, Vitamins, Herbs, OTC Drugs), Illicit/Recreational Drugs, Alcohol true If Yes, Agent(s) And Strength/Dosage false Any Other Genetic History false Live With Someone With TB Or Exposed To TB false Patient Or Partner Has History Of Genital Herpes false Rash Or Viral Illness Since Last Menstrual Perio d false History Of STD, Gonorrhea, Chlamydia, HPV, Syphi lis false Other Infection History false History of HIV false History of Hepatitis false Prior GBS-infected child false Hemoglobinopathy Or Carrier false Other Structural Defect false Recent Travel History Outside of Country false Delivery Information Delivery Date Delivery Type Labor Anesthesia Weeks Gestation Incision Type Labor Labor Length Hrs Delivered By Post Complications Tubal Sterilization Discharge Date Comments 3 Induce d Regional-Ep idural 39.4 false Monica Luna MD anemia, anxiety/d epression , covid in Discharge Information Feeding Method Contraceptive Method Maternal HG B and HCT Levels Ob Episode Information Episode Created Date Number of Fetuses Patient Bloodtype Patient rh Status Prepregnancy Weight lbs Domestic Partner Domestic Partner Phone Father Name Lap Cutter Status 07/27/20 25 1 CLOSED Fetus Data First Name Last Name Admitted to NICU Weight (g) Sex Living Outcome Pediatric Complications Fetus ID Race Codes Race Delivery Type [id number] Karl Calculation Initial Karl Date Initial Exam Date Initial Exam Provider Initial Ultrasound Date Last Menstrual Period Date Ultra Sound Weeks Gestation 0 Eighteen To Twenty Week Karl Update Ultra Sound Date Fundal Height At Umbil Quickening Date Ultra Sound Latest Weeks Gestation Final Karl Confirmed By Final Karl Confirmed Date Final Karl Date Ultra Sound Latest Days Gestation 0 0 Menstrual History Last Menstrual Date Menses Monthly On Bcp Conception Prior Menses Frequency Hcg Plus Date Menarche Onset Age Delivery Information Delivery Date Delivery Type Labor Anesthesia Weeks Gestation Incision Type Labor Labor Length Hrs Delivered By Post Complications Tubal Sterilization Discharge Date Comments 3 Discharge Information Feeding Method Contraceptive Method Maternal HG B and HCT Levels Ob Episode Information Episode Created Date Number of Fetuses Patient Bloodtype Patient rh Status Prepregnancy Weight lbs Domestic Partner Domestic Partner Phone Father Name Lap Cutter Status 07/27/20 25 1 CLOSED Fetus Data First Name Last Name Admitted to NICU Weight (g) Sex Living Outcome Pediatric Complications Fetus ID Race Codes Race Delivery Type [id number] Karl Calculation Initial Karl Date Initial Exam Date Initial Exam Provider Initial Ultrasound Date Last Menstrual Period Date Ultra Sound Weeks Gestation 0 Eighteen To Twenty Week Karl Update Ultra Sound Date Fundal Height At Umbil Quickening Date Ultra Sound Latest Weeks Gestation Final Karl Confirmed By Final Karl Confirmed Date Final Karl Date Ultra Sound Latest Days Gestation 0 0 Menstrual History Last Menstrual Date Menses Monthly On Bcp Conception Prior Menses Frequency Hcg Plus Date Menarche Onset Age Delivery Information Delivery Date Delivery Type Labor Anesthesia Weeks Gestation Incision Type Labor Labor Length Hrs Delivered By Post Complications Tubal Sterilization Discharge Date Comments 4 Discharge Information Feeding Method Contraceptive Method Maternal HG B and HCT Levels Ob Episode Information Episode Created Date Number of Fetuses Patient Bloodtype Patient rh Status Prepregnancy Weight lbs Domestic Partner Domestic Partner Phone Father Name Lap Cutter Status 09/29/20 25 1 A Positive Jamshid Porras OPEN Fetus Data First Name Last Name Admitted to NICU Weight (g) Sex Living Outcome Pediatric Complications Fetus ID Race Codes Race Delivery Type [id number] Problems Problem Notes Problem Name Start Date End Date Resolution Snomed Code Not e Mixed anxiety and depressive disorder 09/29/2025 [id number] celexa 40 Karl Calculation Initial Karl Date [...] Gestation 0 [email or web address] 09/29/2025 04/02/20 26 0 Pre- Flowsheet Flowsheet Date 09/29/2025 Slater Score Blood Edema Fundus Height Fundus Units Glucose Ketones Leukocytes Nitrite Labor Signs Protein Cervic Dilation Cervic Effacement Cervic Station Type Weight in lbs Pre/Post Dialysis Refused Weight 122.527115224306 BP Diastolic BP Location Tested BP Systolic [...]
--- OUTSIDE RECORDS SUMMARY | 2025-10-05 09:34 | XMS_ITS | Continuity of Care Document ---
Author Organization [facility] Address [address] [place] [address] [place] [address] Care Team Providers Care Aviation Project Manager Name Role Phone GEE OAKLEY Primary Care Provider [phone] MARTINEZ BARKER Primary Care Provider [phone] Assessment No assessment recorded. Plan of Treatment [...] available Lab culture , urine 2024 025 [facility] (Lab), [address], [place], [address], 10/01/2025 18:59:06 drug screen, urine 2024 025 [address], [place], [address], 09/29/2025 10:36:09 CT + NG + TV, RNA, unspeci fied specime n 2024 025 [facility] (Lab), [address], [place], [address], 10/01/2025 18:59:05 Referral None recorde d. Procedures None recorde d. Surgeries None recorde d. Imaging None recorde d. Medication Orders None recorde d. Patient TargetsNo targets recorded. Patient InstructionsNo instructions recorded. Reason for Referral None Reported. Results Created Date Observation Date Name Description Value Unit Range Abnormal Flag Note LastModifiedBy Organization Detail LastModifiedTime 09/29/20 25 09/29/2025 drug scree n, urine Amphetamines : negati ve Not Available [address], [place], [address], 09/29/2025 10:34:04 09/29/20 25 09/29/2025 drug scree n, urine Cannabinoids : negati ve Not Available [facility] [address], [place], [address], 09/29/2025 10:34:04 09/29/20 25 09/29/2025 drug scree n, urine Cocaine: negati ve Not Available [address], [place], [address], 09/29/2025 10:34:04 09/29/20 25 09/29/2025 drug scree n, urine Opiates: negati ve Not Available [address], [place], [address], 09/29/2025 10:34:04 09/29/20 25 09/29/2025 drug scree n, urine Phenocyclidi ne: negati ve Not Available [address], [place], [address], 09/29/2025 10:34:04 09/29/20 25 09/29/2025 drug scree n, urine Barbiturates : negati ve Not Available [facility], [place], [address], 09/29/2025 10:34:04 11/21/09/29/2025 drug scree n, urine Benzodiazepi radha: negati ve Not Available [address], [place], [address], 09/29/2025 10:34:04 09/29/20 25 09/29/2025 drug scree n, urine Ethanol: negati ve Not Available [address], [place], [address], 09/29/2025 10:34:04 09/29/20 25 09/29/2025 drug scree n, urine Hallucinogen s: negati ve Not Available [facility] [address], [place], [address], 09/29/2025 10:34:04 09/29/20 25 09/29/2025 drug scree n, urine Inhalants: negati ve Not Available [facility] [address], [place], [address], 09/29/2025 10:34:04 09/29/20 25 09/29/2025 drug scree n, urine Anabolic Steroids: negati ve Not Available [facility] [address], [place], [address], 09/29/2025 10:34:04 09/29/20 25 09/29/2025 drug scree n, urine Other: negati ve Not Available [facility] [address], [place], [address], 09/29/2025 10:34:04 Result Notes None recorded. Problems Name Problem SNOMED Code Status Onset Date Resolution Date Notes Provider Name and Address Organization Details Recorded Time Abnormal cervical Papanico laou smear 751085386 Active repap postpart um Suellen Mccoy [facility] 3 16:14:24 Electron ic cigarett e user 627557576 Active quit Suellen Mccoy [facility] 3 16:14:24 Abnormal cervical Papanico laou smear 996187657 Completed repap postpart um Suellen Mccoy [facility] 3 16:14:24 Electron ic cigarett e user 944076467 Completed quit Suellen Mccoy [facility] 3 16:14:24 Mixed anxiety and depressi ve disorder 637778802 Completed Celexa 40mg. 2/7 - hydroxyz ine as [facility] 3 16:14:24 Acute vaginiti s 06261193 Completed 201511/06/2021 Acute vaginiti s;Record ed Elsewher e: No Locat ion: [facility] S ource: EHR Beaming Machine Operator juan: N Practi ce ID: 0001 Tony lable Time: 02:45:00 PM Beth Kay [facility] 1 17:35:58 Syphilis test finding 288558593 Completed 201511/06/2021 Encntr screen for infectio ns w sexl mode of transmis s;Practi ce ID: 0001 Beth Kay [facility] 17:36:26 Infectio n screenin g Completed 201511/06/2021 Encounte r for screenin g for oth infec/pa rastc diseases ;Practic e ID: 0001 Beth Kay [facility] 17:36:[address] Concept Completed 201511/06/2021 Encntr for routine child health exam w/o abnormal findings ;Recorde d Elsewher e: No Locat ion: [facility] S ource: EHR Beaming Machine Operator juan: N Practi ce ID: 0001 Tony lable Time: 02:45:00 PM Beth Kay [facility] 17:36:21 Finding of regulari ty of menstrua l cycle Completed 201511/06/2021 Irregula r menstrua tion, unspecif ied;Prac yvonne ID: 0001 Beth escudero [facility] 17:36:09 Pregnanc y test negative 447620573 Completed 201511/06/2021 Encounte r for pregnanc y test, result negative ;Practic e ID: 0001 Beth Kay [facility] 17:36:17 Finding of general energy 037843051 Completed 201511/06/2021 Other fatigue; Recorded Elsewher e: No Locat ion: [facility] S ource: EHR Beaming Machine Operator juan: N Practi ce ID: 0001 Tony lable Time: 01:15:00 PM Beth Kay [facility] 17:36:07 Finding of defecati on Completed 201511/06/2021 Constipa tion, unspecif ied;Prac yvonne ID: 0001 Beth Kay [facility] 17:36:06 Procedur e by method Completed 201611/06/2021 Encounte r for other general counseli ng and advice on contrace ption;Re corded Elsewher e: No [facility] Beaming Machine Operator juan: N Practi ce ID: 0001 Tony lable Time: 09:45:00 AM [facility] 17:36:04 Procedur e Completed 201611/06/2021 Enctr srvlnc implanta ble subderma l contrace ptive;Pr actice ID: 0001 Beth Kay [facility] 17:36:[address] Concept Completed 201611/06/2021 Encounte r for surveill ance of other contrace ptives;R ecorded Elsewher e: No Locat ion: [facility] S ource: EHR Beaming Machine Operator juan: N Practi ce ID: 0001 Tony lable Time: 02:45:00 PM Beth Kay [facility] 17:36:24 Finding of sensatio n of breast Completed 201711/06/2021 Mastodyn ia;Pract ice ID: 0001 Beth Kay [facility] 17:36:11 Pelvic and perineal pain 271121577 Completed 201711/06/2021 Pelvic and perineal pain;Pra ctice ID: 0001 Beth Kay [facility] 17:36:16 Nausea 968898982 Completed 201711/06/2021 Nausea;P ractice ID: 0001 Beth Kay [facility] 17:36:14 Urinary tract infectio us disease 39622312 Completed 201811/06/2021 Urinary tract infectio n, site not specifie d;Practi ce ID: 0001 Beth Kay [facility] 17:36:27 Lesion of ovary Completed 201811/06/2021 Other ovarian cyst, left side;Rec orded Elsewher e: No Locat ion: [facility] S ource: EHR Beaming Machine Operator juan: N Practi ce ID: 0001 Tony lable Time: 04:30:00 PM Beth Kay [facility] 17:36:02 Disorder of breast 15842644 Completed 201811/06/2021 Disorder of breast, unspecif ied;Prac yvonne ID: 0001 Beth Kay [facility] 12/29/202 1 17:36:[address] Concept Completed 201811/06/2021 Encntr for director of quality exam (general ) (routine ) w/o abn findings ;Recorde d Elsewher e: No Locat ion: [facility] S ource: EHR Beaming Machine Operator juan: N Practi ce ID: 0001 Tony lable Time: 01:00:00 PM Beth Kay [facility] 1 17:36:22 Pregnanc y 86612539 Completed 202104/24/2023 Estrella Murphy [facility] 5 09:55:37 COVID-19 690995878 Completed 2022 ASA & serial growth Suellen Mccoy [facility] 3 16:14:24 Anemia 955591336 Completed 2022 1 tab BID slowfe daily Suellen Mccoy [facility] 3 16:14:24 Mixed anxiety and depressi ve disorder 822776170 Active 2024 [email or web address] Gordillo MD [address], [place], [address], [facility] 5 10:27:37 Pregnanc y 34923069 Active 2024 Estrella Murphy [facility] 5 09:55:37 Mixed anxiety and depressi ve disorder 596563653 Active 2024 celexa Alesha Gordillo MD [address], [place], [address], [facility] 5 10:27:37 Problem Notes None recorded. Procedures Surgical History Date Name Laterality Status Provider Name and Address Organization Details Recorded Time Date of Last Pap Smear completed Estrella Murphy [facility] 09/29/2025 09:49:51 0 extraction of wisdom tooth completed Dasia Black [facility] 05/08/2020 09:45:39 Imaging Results None recorded. Procedure Notes None recorded. Medical Equipment None Reported. Allergies Allergen ID Allergen Name Allergen Category Reaction Reaction Severity Criticality Documentation Date Start Date Code Code System Note Provider Name and Address Organization Details Recorded Time 972 Product containin g penicilli n (product) medicatio n Not available Not available Not available 04/20/2020 03857 8001 SNOMED [facility]asia [facility] 09:47:26 973 Substance with sulfonami de structure and antibacte rial mechanism of action (substanc e) medicatio n Not available Not available Not available 04/20/2020 58275 8003 SNOMED Dasia Black [facility] 0 09:47:36 Medications Name Sig Start [...] Elsewher e: No Locat ion: [facility] odify By: jen anderson DateTime : 06/05/20 [...] Elsewher e: No Locat ion: [place] [facility] odify By: ayan Young ncounter DateTime : [...] ed Elsewher e: Yes Loca tion: [facility] odify By: cristiano anderson DateTime : 06/02/20 [...] Prescrib ed Elsewher e: No [facility] By: cristiano Murdock r DateTime : 10/13/20 16 01:15:00 PM Not Available Not Available Not Available Zithromax 500 mg tablet take 2 tablet by oral route once 07/29 completed Prescrib ed Elsewher e: No [facility] By: jen Murdock r DateTime : [...] ed Elsewher e: No Locat ion: [facility] odify By: jen Murdcok r DateTime : 06/02/20 16 02:45:00 PM [...] Prescrib tsering Becker e: No Locat ion: [facility] M odify By: cristiano anderson DateTime : 09/15/20 [...] Updated DateTime 09/29/2025 162.56 cm 21 kg/m2 15205.42 g 104/72 mm[Hg] Estrella Murphy [facility] 09/29/2025 09:56:03 Social History Question Answer Notes LastModified by Organizat ion Details LastModified Time Tobacco Smoking Status Former Smoker Zee Arita kota [facility] 04/17/2023 10:55:29 Do You Have An [...] Or Recreational Drugs Have You Used? None [email or web address] Information not available 04/17/2023 What Is The Highest Grade Or Level Of School You Have Completed Or The Highest Degree You Have Received? [id number] [email or web address] Information not available 09/29/2025 Are There Any Guns Present In Your Home? No Information not available 03/04/2021 What Was The Date Of Your Most Recent Tobacco Screening? 06/12/2020 [email or web address] Information not available 04/17/2023 Do You Use Protection During Sex? No Information not available 03/04/2021 Do You Use Your Seat Belt Or Car Seat Routinely? Yes Information not available 03/04/2021 Are You Sexually Active? Yes Information not available 08/22/2025 Do You Have Smoke And Carbon Monoxide Detectors In Your Home? Yes Information not available 03/04/2021 How Much Tobacco Do You Smoke? No [email or web address] Information not available 06/12/2020 Do You Use [...] is your level of alcohol consumption? None [email or web address] Information not available 09/29/2025 Do you or have you ever used smokeless tobacco? Currently uses moist powdered tobacco [email or web address] Information not available 04/17/2023 Are you currently employed? Yes [email or web address] Information not available 08/22/2025 Are you able to walk independently without assistance or assistive devices? [email or web address] Information not available 03/04/2021 Are you able to care for yourself independently? 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 No [email or web address] Information not available 08/22/2025 Do you or have you ever used e-cigarettes or vape? Current user of electronic cigarettes [email or web address] Information not available 04/17/2023 What is your exercise level? Occasional [email or web address] Information not available 04/20/2020 Mental Status Question Answer Note LastModified by Organization D etails LastModified Time Do you feel stressed (tense, restless, nervous, or anxious, or unable to sleep at night)? [id number] Information not available 11/07/2021 Family History Relationship Description Onset Age of this Age Resolved Age Notes LastModified by Organization Details LastModified Time Maternal Grandmother Diabetes mellitus [email or web address] Not available 04/20 09:49:07 Mother Cyst of ovary [email or web address] Not available 08/09 17:29:30 Medical History Condition Response Anxiety Disorder Y History of STI Y History of abnormal pap Y Depression/ [...] ICD10 Code Diagnosis IMO Codes Diagnosis Note [id number] Tony Gordillo MD [facility] [address] [address] 09/26/2025 15:36:27 09/26/2025 16:11:11 screening [id number] Z36.82 Z3A.13 [id number] Tony Gordillo MD [facility] [address] [address] 09/29/2025 09:43:17 09/29/2025 11:15:50 screening 107519766 Z36.9 [id number] care status 24 0697746 Z34.82 [id number] Health Concerns Section Related Observation LastModified by Organization Detai ls LastModified Time None Recorded Concern Status LastModified by Organization Details LastModified Time None Recorded Payers Encounter Date Sequence Insurance Name Policy Number Policy Carbajal Covered Member ID Carbajal Member ID Guarantor Name 09/29/2025 1 *SELF PAY* Iam Cerda OBGyn Episode Ob Episode Information Episode Created Date Number of Fetuses Patient Bloodtype Patient rh Status Prepregnancy Weight lbs Domestic Partner Domestic Partner Phone Father Name Industrial Production Manager Status 09/29/20 25 1 A Positive Jamshid Porras OPEN Fetus Data First Name Last Name Admitted to NICU Weight (g) Sex Living Outcome Pediatric Complications Fetus ID Race Codes Race Delivery Type [id number] Problems Problem Notes Problem Name Start Date End Date Resolution Snomed Code Not e Mixed anxiety and depressive disorder 09/29/2025 [id number] celexa 40 Karl Calculation Initial Karl Date [...] Weight in lbs Pre/Post Dialysis Refused Weight 122.110751128072 BP Diastolic BP Location Tested BP Systolic [...]
--- OUTSIDE RECORDS SUMMARY | 2025-10-05 09:34 | XMS_ITS | Continuity of Care Document ---
Author Organization [facility] Address [address] [place] [address] Care Team Providers Care Bearingizer Name Role Phone GEE OAKLEY Primary Care Provider MARTINEZ BARKER Primary Care Provider Assessment No assessment recorded. Plan of Treatment Reminders Order Date Submit Date Provider Last Modified By Organization Details Last Modified Time Details Appointments OB ROUTINE 2024 08:30A M KHADRA BARAKAT MD Not available Not available Not available U/S OB BASELIN E 2025 01:00P M ULTRASOUND Not available Not available Not available OB ROUTINE 2025 02:00P M KHADAR BARAKAT MD Not available Not available Not available Lab aneuplo idy risk, chromos ome specifi c circula ting cell free (ccf) DNA, materna l serum 2024 025 [facility] [address], [place], [address], 09/12/2025 23:39:13 HbA1c (hemogl obin A1c), blood 2024 025 [facility] (Lab), [address], [place], [address], 08/22/2025 21:08:42 type + screen, blood 2024 025 [email or web address] [facility] (Lab), [address], [place], [address], 08/22/2025 21:07:53 rubella igg Ab, titer, serum 2024 [facility] (Lab), [address], [place], [address], 08/22/2025 21:08:43 CBC w/ auto diff 2024 [facility] (Lab), [address], [place], [address], 08/22/2025 21:08:42 hepatit is C virus Ab, serum 2024 [facility] (Lab), [address], [place], [address], 08/22/2025 21:08:42 HBsAg (hepati tis B surface Ag), serum 2024 [facility] (Lab), [address], [place], [address], 08/22/2025 21:08:43 RPR (rapid plasma reagin) , serum 2024 [facility] (Lab), [address], [place], [address], 08/22/2025 21:08:43 HIV 1+2 AB + HIV 1 p24 Ag, qualita tive immunoa ssay, serum 2024 [email or web address] [facility] (Lab), [address], [place], [address], 08/22/2025 21:07:53 genetic screen, unspeci fied specime n 2024 [place] Leslie, [address], [place], [address], 09/12/2025 22:21:46 Referral None recorde d. Procedures None recorde d. Surgeries None recorde d. Imaging None recorde d. Medication Orders None recorde d. Patient TargetsNo targets recorded. Patient InstructionsNo instructions recorded. Reason for Referral None Reported. Results Created Date Observation Date Name Description Value Unit Range Abnormal Flag Note LastModifiedBy Organization Detail LastModifiedTime 09/12/2009/12/2025 [UNIT Y] JAIR Garcia fragile X carrier screen NEGATI VE repeat s normal Not Available [facility] [address], [place], [address], 09/12/2025 22:21:46 09/12/20 25 09/12/2025 [UNIT Y] JAIR ALFONSO Radha sickle cell disease/beta -thalassemia /hemoglobino pathies carrier screen NEGATI VE normal Not Available [facility] [address], [place], [address], 09/12/2025 22:21:46 09/12/20 25 09/12/2025 [UNIT Y] JAIR SINGHHector Garcia alpha-thalas semia carrier screen NEGATI VE normal Not Available [facility] [address], [place], [address], 09/12/2025 22:21:46 09/12/20 25 09/12/2025 [UNIT Y] JAIR SINGHHector Garcia cystic fibrosis carrier screen NEGATI VE normal Not Available [facility] [address], [place], [address], 09/12/2025 22:21:46 09/12/20 25 09/12/2025 [UNIT Y] JAIR SINGHHector Garcia spinal muscular atrophy carrier screen NEGATI VE 2 SMN1 copies , SNP not presen t normal Not Available [facility] [address], [place], [address], 09/12/2025 22:21:46 09/12/20 25 09/12/2025 [UNIT Y] JAIR MAURICE Garcia for detailed report, see pdf See PDF normal Not Available [facility] [address], [place], [address], 09/12/2025 22:21:46 09/12/20 25 09/12/2025 [UNIT Y] ANEUP LOIDY NIPT fraction 9.4% normal Not Available [facility] [address], [place], [address], 09/12/2025 23:39:13 09/12/20 25 09/12/2025 [UNIT Y] ANEUP LOIDY NIPT 22Q11.2 microdeletio n LOW RISK <1 in 10,000 normal Not Available [facility] [address], [place], [address], 09/12/2025 23:39:13 09/12/20 25 09/12/2025 [UNIT Y] ANEUP LOIDY NIPT sex chromosome aneuploidy NOT DETECT ED normal Not Available [facility] [address], [place], [address], 09/12/2025 23:39:13 09/12/20 25 09/12/2025 [UNIT Y] ANEUP LOIDY NIPT monosomy X LOW RISK <1 in 10,000 normal Not Available [facility] [address], [place], [address], 09/12/2025 23:39:13 09/12/20 25 09/12/2025 [UNIT Y] ANEUP LOIDY NIPT trisomy 13 LOW RISK <1 in 10,000 normal Not Available [facility] [address], [place], [address], 09/12/2025 23:39:13 09/12/20 25 09/12/2025 [UNIT Y] ANEUP LOIDY NIPT trisomy 18 LOW RISK <1 in 10,000 normal Not Available [facility] [address], [place], [address], 09/12/2025 23:39:13 09/12/20 25 09/12/2025 [UNIT Y] ANEUP LOIDY NIPT trisomy 21 LOW RISK <1 in 10,000 normal Not Available [facility] [address], [place], [address], 09/12/2025 23:39:13 09/12/20 25 09/12/2025 [UNIT Y] ANEUP LOIDY NIPT sex MALE normal Not Available [facility] [address], [place], [address], 09/12/2025 23:39:13 09/12/20 25 09/12/2025 [UNIT Y] ANEUP LOIDY NIPT gestation SINGLE TON normal Not Available [facility] [address], [place], [address], 09/12/2025 23:39:13 09/12/20 25 09/12/2025 [UNIT Y] ANEUP LOIDY NIPT for detailed report, see pdf See PDF normal Not Available [facility] [address], [place], [address], 09/12/2025 23:39:13 Result Notes None recorded. Problems Name Problem SNOMED Code Status Onset Date Resolution Date Notes Provider Name and Address Organization Details Recorded Time Abnormal cervical Papanico laou smear 277347197 Active repap postpart um Suellen Mccoy [facility] 3 16:14:24 Electron ic cigarett e user 354901840 Active quit Suellen Mccoy [facility] 3 16:14:24 Abnormal cervical Papanico laou smear 113798692 Completed repap postpart um Suellen Mccoy [facility] 3 16:14:24 Electron ic cigarett e user 917426290 Completed quit Suellen Mccoy [facility] 3 16:14:24 Mixed anxiety and depressi ve disorder 648737300 Completed Celexa 40mg. 2/7 - hydroxyz ine as needed Suellen Arceole [facility] 3 16:14:24 Acute vaginiti s 13205179 Completed 201511/06/2021 Acute vaginiti s;Record ed Elsewher e: No Locat ion: [facility] S ource: EHR Event Planner juan: N Practi ce ID: 0001 Tony lable Time: 02:45:00 PM Beth Kay [facility] 17:35:58 Syphilis test finding 593451718 Completed 201511/06/2021 Encntr screen for infectio ns w sexl mode of transmis s;Practi ce ID: 0001 Beth Kay [facility] 17:36:26 Infectio n screenin g Completed 201511/06/2021 Encounte r for screenin g for oth infec/pa rastc diseases ;Practic e ID: 0001 Beth Kay [facility] 17:36:[address] Concept Completed 201511/06/2021 Encntr for routine child health exam w/o abnormal findings ;Recorde d Elsewher e: No Locat ion: [place] [facility] S ource: EHR Event Planner juan: N Practi ce ID: 0001 Tony lable Time: 02:45:00 PM Beth Kay [facility] 17:36:21 Finding of regulari ty of menstrua l cycle Completed 201511/06/2021 Irregula r menstrua tion, unspecif ied;Prac yvonne ID: 0001 Beth Kay [facility] 17:36:09 Pregnanc y test negative 162626760 Completed 201511/06/2021 Encounte r for pregnanc y test, result negative ;Practic e ID: 0001 Beth escudero, [facility] 17:36:17 Finding of general energy 013531254 Completed 201511/06/2021 Other fatigue; Recorded Elsewher e: No Locat ion: [facility] S ource: EHR Event Planner juan: N Practi ce ID: 0001 Tony lable Time: 01:15:00 PM Beth Kay [facility] 17:36:07 Finding of defecati on Completed 201511/06/2021 Constipa tion, unspecif ied;Prac yvonne ID: 0001 Beth Kay [facility] 17:36:06 Procedur e by method Completed 201611/06/2021 Encounte r for other general counseli ng and advice on contrace ption;Re corded Elsewher e: No Locat ion: [facility] S ource: EHR Event Planner juan: N Practi ce ID: 0001 Tony lable Time: 09:45:00 AM Beth Kay [facility] 17:36:04 Procedur e Completed 201611/06/2021 Enctr srvlnc implanta ble subderma l contrace ptive;Pr actice ID: 0001 Beth Kay [facility] 17:36:[address] Concept Completed 201611/06/2021 Encounte r for surveill ance of other contrace ptives;R ecorded Elsewher e: No Locat ion: [facility] S ource: EHR Event Planner juan: N Practi ce ID: 0001 Tony lable Time: 02:45:00 PM Beth Kay [facility] 17:36:24 Finding of sensatio n of breast Completed 201711/06/2021 Mastodyn ia;Pract ice ID: 0001 Beth Kay [facility] 17:36:11 Pelvic and perineal pain 656746689 Completed 201711/06/2021 Pelvic and perineal pain;Pra ctice ID: 0001 Beth Kya [facility] 17:36:16 Nausea 681234287 Completed 201711/06/2021 Nausea;P ractice ID: 0001 Beth Kay [facility] 17:36:14 Urinary tract infectio us disease 73708506 Completed 201811/06/2021 Urinary tract infectio n, site not specifie d;Practi ce ID: 0001 Beth Kay [facility] 17:36:27 Lesion of ovary Completed 201811/06/2021 Other ovarian cyst, left side;Rec orded Elsewher e: No Locat ion: [facility] S ource: EHR Event Planner juan: N Practi ce ID: 0001 Tony lable Time: 04:30:00 PM Beth Kay [facility] 17:36:02 Disorder of breast 97815080 Completed 201811/06/2021 Disorder of breast, unspecif ied;Prac yvonne ID: 0001 Beth Kay [facility] 17:36:[address] Concept Completed 201811/06/2021 Encntr for spinning bath person exam (general ) (routine ) w/o abn findings ;Recorde d Elsewher e: No Locat ion: [facility] S ource: EHR Event Planner juan: N Practi ce ID: 0001 Tony lable Time: 01:00:00 PM Beth Kay [facility] 17:36:22 Pregnanc y 31456808 Completed 202104/24/2023 Estrella Murphy [facility] 5 09:55:37 COVID-19 505259672 Completed 2022 ASA & serial growth [facility] 16:14:24 Anemia 439066529 Completed 2022 1 tab BID slowfe daily Suellen Mccoy [facility], [facility] 3 16:14:24 Mixed anxiety and depressi ve disorder 256014744 Active 2024 amari Gordillo MD [address], [place], [address], [facility] 5 10:27:37 Pregnanc y 64290901 Active 2024 Estrella Murphy [facility], [facility] 5 09:55:37 Mixed anxiety and depressi ve disorder 803793489 Active 2024 amari Gordillo MD [address], [place], [address], [facility] 5 10:27:37 Problem Notes None recorded. Procedures Surgical History Date Name Laterality Status Provider Name and Address Organization Details Recorded Time 5 Date of Last Pap Smear completed Estrella Murphy [facility] 09/29/2025 09:49:51 0 extraction of wisdom tooth completed Dasia Black [facility] 05/08/2020 09:45:39 Imaging Results None recorded. Procedure Notes None recorded. Medical Equipment None Reported. Allergies Allergen ID Allergen Name Allergen Category Reaction Reaction Severity Criticality Documentation Date Start Date Code Code System Note Provider Name and Address Organization Details Recorded Time 972 Product containin g penicilli n (product) medicatio n Not available Not available Not available 04/20/2020 63345 8001 SNOMED Dasia Black kota, [facility] 0 09:47:26 973 Substance with sulfonami de structure and antibacte rial mechanism of action (substanc e) medicatio n Not available Not available Not available 04/20/2020 24674 8003 SNOMED Dasia Black kota, [facility] 0 09:47:36 Medications Name Sig Start [...] for 7 days. 07/29 completed Prescrib ed Rosita e: No Locat ion: [facility] M odify By: jen anderson DateTime : [...] ed Elsewher e: No Locat ion: [facility] hector [facility] odify By: ayan lawsoner DateTime : 01/28/20 19 10:45:00 AM Not [...] ed Elsewher e: Yes Loca tion: [facility] odify By: cristiano anderson DateTime : [...] Prescrib ed Elsewher e: No Locat ion: [facility] odify By: cristiano Murdock r DateTime : 10/13/20 16 01:15:00 PM Not Available Not Available Not Available Zithromax 500 mg tablet take 2 tablet by oral route once 07/29 completed Prescrib ed Elsewher e: No Locat ion: [facility] odify By: jen Murdock r DateTime [...] Prescrib ed Elsewher e: No Locat ion: [facility] odify By: jen Murdock r DateTime [...] Prescrib ed Elsewher e: No Locat ion: [facility] odify By: cristiano Murdock r DateTime [...] Updated DateTime 08/22/2025 162.56 cm 20.1 kg/m2 13584.31 g 105/67 mm[Hg] Monica Kerr [facility] 08/22/2025 17:58:41 Social History Question Answer Notes LastModified by Organizat ion Details LastModified Time Tobacco Smoking Status Former Smoker Zee Arita kota, [facility] 04/17/2023 10:55:29 Do You Have An [...] Or Recreational Drugs Have You Used? None [email or web address] Information not available 04/17/2023 What Is The Highest Grade Or Level Of School You Have Completed Or The Highest Degree You Have Received? [id number] [email or web address] Information not available 09/29/2025 Are There Any Guns Present In Your Home? No Information not available 03/04/2021 What Was The Date Of Your Most Recent Tobacco Screening? 06/12/2020 [email or web address] Information not available 04/17/2023 Do You Use Protection During Sex? No Information not available 03/04/2021 Do You Use Your Seat Belt Or Car Seat Routinely? Yes Information not available 03/04/2021 Are You Sexually Active? Yes [email or web address] Information not available 08/22/2025 Do You Have Smoke And Carbon Monoxide Detectors In Your Home? Yes Information not available 03/04/2021 How Much Tobacco Do You Smoke? No [email or web address] Information not available 06/12/2020 Do You Use Sunscreen Routinely? Yes Information not available 03/04/2021 How Many Years Have You Smoked Tobacco? 0 Information not available 03/04/2021 Have You Used IV Drugs? No Information not available 03/04/2021 Do You Have Difficulty Walking Or Climbing Stairs? No [email or web address] Information not available 08/22/2025 Sex: Unknown Functional Status Question Answer Note LastModified by Organizat ion Details LastModified Time Do you use any illicit or recreational drugs? No Information not available 03/04/2021 What is your level of alcohol consumption? None [email or web address] Information not available 09/29/2025 Do you or have you ever used smokeless tobacco? Currently uses moist powdered tobacco [email or web address] Information not available 04/17/2023 Are you currently employed? Yes [email or web address] Information not available 08/22/2025 Are you able to walk independently without assistance or assistive devices? YESWOREST [email or web address] Information not available 03/04/2021 Are you able to care for yourself independently? 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 No [email or web address] Information not available 08/22/2025 Do you or have you ever used e-cigarettes or vape? Current user of electronic cigarettes Information not available 04/17/2023 What is your exercise level? Occasional [email or web address] Information not available 04/20/2020 Mental Status Question Answer Note LastModified by Organization D etails LastModified Time Do you feel stressed (tense, restless, nervous, or anxious, or unable to sleep at night)? [id number] [email or web address] Information not available 11/07/2021 Family History Relationship Description Onset Age of this Age Resolved Age Notes LastModified by Organization Details LastModified Time Maternal Grandmother Diabetes mellitus [email or web address] Not available 04/20 09:49:07 Mother Cyst of [...] ICD10 Code Diagnosis IMO Codes Diagnosis Note [id number] AFSHIN Ross [facility] [address] [address] 07/27/2025 10:50:51 07/27/2025 14:18:17 Urinary symptoms 818297111 R39.9 91629 Ua done, cx sentvagini tis panel sentSTI screen declined Gynecologi c examination 25221824 Z01.964 [id number] WWEPap - done todaySTI screen - declinedRo [...] dietary consult advised. Questions answered. test positive 029809573 Z32.01 521841 UPT (+) todaydiscu ssed result with ptencourag ed daily PNVlabs ordered, will update pt with results when availablep recautions discussed Time spent in visit is a total of 45 mins with at least 50% of visit consisting of counseling and review of plan of care. Vaginal discharge 521493 006 N89.8 72319 [id number] KHADRA BARAKAT MD [address] [address] [address] 08/22/2025 17:28:12 08/22/2025 17:58:42 [id number] KHADRA BARAKAT MD [address] [address] [address] 08/22/2025 17:29:27 08/23/2025 08:27:26 test positive 167492776 Z32.01 025107 1. Exam today within normal limits.2. Ultrasound today confirms GA and viability. EDC . GC/Clamydi a testing done: will f/u as indicated. 4. ACOG guidelines and plan of care for reviewed with patient. All questions answered.5 . Return to office at 12 weeks for new OB visit6. Will need new OB labs at next visit.7. Genetic screening: desires. Genetic in vestigation procedure 17986658 Z31.430 Mixed anxi ety and depressive disorder 805643858 F41.8 791357 -continue celexa daily and hydroxyzin e PRN Electronic cigarette user 817920541 Z78.9 97716120 - discussed decreasing use and switching to [...] [facility] Emily Cerda [id number] Emily Cerda OBGyn Episode Ob Episode Information Episode Created Date Number of Fetuses Patient Bloodtype Patient rh Status Prepregnancy Weight lbs Domestic Partner Domestic Partner Phone Father Name Endocrinologist Status 09/29/20 25 1 A Positive Jamshid Porras OPEN Fetus Data First Name Last Name Admitted to NICU Weight (g) Sex Living Outcome Pediatric Complications Fetus ID Race Codes Race Delivery Type [id number] Problems Problem Notes Problem Name Start Date End Date Resolution Snomed Code Not e Mixed anxiety and depressive disorder 09/29/2025 [id number] celexa 40 Karl Calculation Initial Karl Date [...] Weight in lbs Pre/Post Dialysis Refused Weight 122.147994788136 BP Diastolic BP Location Tested BP Systolic [...]
--- OUTSIDE RECORDS SUMMARY | 2025-10-05 09:34 | XMS_ITS | Continuity of Care Document ---
Author Organization [facility] [place] Address [address] [address] [address] Care Team Providers Care Floral Merchandiser Name Role Phone GEE OAKLEY Primary Care Provider [phone] MARTINEZ BARKER Primary Care Provider [phone] Assessment No assessment recorded. Plan of Treatment [...] ic, nuchal translu cency 2024 025 [email or web address] [place], [address], [place], [address], 09/26/2025 20:29:01 Medication Orders None recorde d. Patient TargetsNo targets recorded. Patient InstructionsNo instructions recorded. Reason for Referral None Reported. Problems Name Problem SNOMED Code Status Onset Date Resolution Date Notes Provider Name and Address Organization Details Recorded Time Abnormal cervical Papanico laou smear [id number] Active repap postpart um Suellen escudero, [facility] 3 16:14:24 Electron ic cigarett e user [id number] Active quit Suellen Mccoy [facility] 3 16:14:24 Abnormal cervical Papanico laou smear [id number] Completed repap postpart um Suellen escudero [facility] 3 16:14:24 Electron ic cigarett e user [id number] Completed quit Suellen Mccoy [facility] 3 16:14:24 Mixed anxiety and depressi ve disorder 481891020 Completed Celexa 40mg. 2/7 - hydroxyz ine as needed Suellen Mccoy [facility] 3 16:14:24 Acute vaginiti s 36706816 Completed 201511/06/2021 Acute vaginiti s;Record ed Elsewher e: No Locat ion: [facility] S ource: EHR Main Line Station Engineer juan: N Practi ce ID: 0001 Tony lable Time: 02:45:00 PM Beth Kay [facility] 17:35:58 Syphilis test finding 037339111 Completed 201511/06/2021 Encntr screen for infectio ns w sexl mode of transmis s;Practi ce ID: 0001 Beth Kay [facility] 17:36:26 Infectio n screenin g Completed 201511/06/2021 Encounte r for screenin g for oth infec/pa rastc diseases ;Practic e ID: 0001 Beth Kay [facility] 17:36:[address] Concept Completed 201511/06/2021 Encntr for routine child health exam w/o abnormal findings ;Recorde d Elsewher e: No Locat ion: [facility] S ource: EHR Main Line Station Engineer juan: N Practi ce ID: 0001 Tony lable Time: 02:45:00 PM Beth escudero [facility] 17:36:21 Finding of regulari ty of menstrua l cycle Completed 201511/06/2021 Irregula r menstrua tion, unspecif ied;Prac yvonne ID: 0001 Beth Kay [facility] 17:36:09 Pregnanc y test negative [id number] Completed 201511/06/2021 Encounte r for pregnanc y test, result negative ;Practic e ID: 0001 Beth Kay [facility] 17:36:17 Finding of general energy 730328470 Completed 201511/06/2021 Other fatigue; Recorded Elsewher e: No Locat ion: [facility] S ource: EHR Main Line Station Engineer juan: N Practi ce ID: 0001 Tony lable Time: 01:15:00 PM Beth Kay [facility] 17:36:07 Finding of defecati on Completed 201511/06/2021 Constipa tion, unspecif ied;Prac yvonne ID: 0001 Beth Kay [facility] 17:36:06 Procedur e by method Completed 201611/06/2021 Encounte r for other general counseli ng and advice on contrace ption;Re corded Elsewher e: No Locat ion: [facility] S ource: EHR Main Line Station Engineer juan: N Practi ce ID: 0001 Tony lable Time: 09:45:00 AM Beth Kay [facility] 17:36:04 Procedur e Completed 201611/06/2021 Enctr srvlnc implanta ble subderma l contrace ptive;Pr actice ID: 0001 Beth Kay [facility], [facility] 17:36:[address] Concept Completed 201611/06/2021 Encounte r for surveill ance of other contrace ptives;R ecorded Elsewher e: No Locat ion: [facility] S ource: EHR Main Line Station Engineer juan: N Practi ce ID: 0001 Tony lable Time: 02:45:00 PM Beth Kay [facility] 17:36:24 Finding of sensatio n of breast Completed 201711/06/2021 Mastodyn ia;Pract ice ID: 0001 Beth Kay [facility] 17:36:11 Pelvic and perineal pain 050938235 Completed 201711/06/2021 Pelvic and perineal pain;Pra ctice ID: 0001 Beth Kay [facility] 17:36:16 Nausea 349768043 Completed 201711/06/2021 Nausea;P ractice ID: 0001 Beth Kay [facility] 17:36:14 Urinary tract infectio us disease 46289031 Completed 201811/06/2021 Urinary tract infectio n, site not specifie d;Practi ce ID: 0001 Beth Kay [facility] 17:36:27 Lesion of ovary Completed 201811/06/2021 Other ovarian cyst, left side;Rec orded Elsewher e: No Locat ion: [facility] S ource: EHR Main Line Station Engineer juan: N Practi ce ID: 0001 Tony lable Time: 04:30:00 PM Beth escudero [facility] 17:36:02 Disorder of breast 22712822 Completed 201811/06/2021 Disorder of breast, unspecif ied;Prac yvonne ID: 0001 Beth escudero, [facility] 17:36:[address] Concept Completed 201811/06/2021 Encntr for bean weigher exam (general ) (routine ) w/o abn findings ;Recorde d Elsewher e: No Locat ion: [place] [facility] S ource: EHR Main Line Station Engineer juan: N Practi ce ID: 0001 Tony lable Time: 01:00:00 PM Beth escudero, [facility] 17:36:22 Pregnanc y 24379691 Completed 202104/24/2023 Estrella Murphy [facility] 5 09:55:37 COVID-19 698332310 Completed 2022 ASA & serial growth Suellen Mccoy [facility] 3 16:14:24 Anemia 981756770 Completed 2022 1 tab BID slowfe daily Suellen Mccoy [facility], [facility] 3 16:14:24 Mixed anxiety and depressi ve disorder 423729093 Active 2024 amari Gordillo MD [address], [place], [address], [facility] 5 10:27:37 Pregnanc y 62213391 Active 2024 Estrellaross escudero, [facility] 5 09:55:37 Mixed anxiety and depressi ve disorder 065188583 Active 2024 amari Gordillo MD [address], [place], [address], [facility] 5 10:27:37 Problem Notes None recorded. Procedures Surgical History Date Name Laterality Status Provider Name and Address Organization Details Recorded Time 5 Date of Last Pap Smear completed Estrella Murphy [facility] 09/29/2025 09:49:51 0 extraction of wisdom tooth completed Dasia Black [facility] 05/08/2020 09:45:39 Imaging Results None recorded. Procedure Notes None recorded. Medical Equipment None Reported. Allergies Allergen ID Allergen Name Allergen Category Reaction Reaction Severity Criticality Documentation Date Start Date Code Code System Note Provider Name and Address Organization Details Recorded Time 972 Product containin g penicilli n (product) medicatio n Not available Not available Not available 04/20/2020 68367 8001 SNOMED Dasia escudero [facility] 0 09:47:26 973 Substance with sulfonami de structure and antibacte rial mechanism of action (substanc e) medicatio n Not available Not available Not available 04/20/2020 42975 8003 SNOMED Dasia escudero [facility] 0 09:47:36 Medications Name Sig [...] Prescrib ed Elsewher e: No [facility] By: jen anderson DateTime : 06/05/20 [...] Prescrib ed Elsewher e: No [facility] By: ayan beltranunter DateTime : 01/28/20 19 10:45:00 AM Not [...] Prescrib ed Elsewher e: Yes [facility] By: cristiano anderson DateTime : 06/02/20 [...] TAKE 1 CAPSULE BY MOUTH TWICE DAILY 10/24 /2022 completed Not Available Not Available Not Available [...] Prescrib ed Elsewher e: No Locat ion: [facility] odify By: cristiano anderson DateTime : 10/13/20 16 01:15:00 PM Not Available Not Available Not Available Zithromax 500 mg tablet take 2 tablet by oral route once 07/29 completed Prescrib ed Elsewher e: No [facility] By: jen Murdock r DateTime [...] ed Elsewher e: No Locat ion: [facility] odify By: jen Murdock r DateTime : [...] e: No Locat ion: [facility] odify By: cristiano anderson DateTime : 09/15/20 16 10:30:00 AM Not Available Not Available Not Available Estarylla 0.25 mg-0.035 mg tablet TAKE 1 TABLET BY MOUTH EVERY DAY 09/01 completed Not Available Not Available Not Available Junel Fe 24 08/10 completed Not Available Not [...] Not Available Not Available Not Available Vitals None Recorded Social History Question Answer Notes LastModified by Organizat ion Details LastModified Time Tobacco Smoking Status Former Smoker Zee Juan J k[place], [place] - [facility] 04/17/2023 10:55:29 Do You Have [...] Or Recreational Drugs Have You Used? None Information not available 04/17/2023 What Is The Highest Grade Or Level Of School You Have Completed Or The Highest Degree You Have Received? [id number] [email or web address] Information not available 09/29/2025 Are There Any Guns Present In Your Home? No Information not available 03/04/2021 What Was The Date Of Your Most Recent Tobacco Screening? 06/12/2020 [email or web address] Information not available 04/17/2023 Do You Use Protection During Sex? No Information not available 03/04/2021 Do You Use Your Seat Belt Or Car Seat Routinely? Yes Information not available 03/04/2021 Are You Sexually Active? Yes [email or web address] Information not available 08/22/2025 Do You Have Smoke And Carbon Monoxide Detectors In Your Home? Yes Information not available 03/04/2021 How Much Tobacco Do You Smoke? No [email or web address] Information not available 06/12/2020 Do You Use Sunscreen Routinely? Yes Information not available 03/04/2021 How Many Years Have You Smoked Tobacco? 0 Information not available 03/04/2021 Have You Used IV Drugs? No Information not available 03/04/2021 Do You Have Difficulty Walking Or Climbing Stairs? No [email or web address] Information not available 08/22/2025 Sex: Unknown Functional Status Question Answer Note LastModified by Organizat ion Details LastModified Time Do you use any illicit or recreational drugs? No Information not available 03/04/2021 What is your level of alcohol consumption? None [email or web address] Information not available 09/29/2025 Do you or have you ever used smokeless tobacco? Currently uses moist powdered tobacco [email or web address] Information not available 04/17/2023 Are you currently employed? Yes Information not available 08/22/2025 Are you able to walk independently without assistance or assistive devices? [email or web address] Information not available 03/04/2021 Are you able to care for yourself independently? 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 No [email or web address] Information not available 08/22/2025 Do you or have you ever used e-cigarettes or vape? Current user of electronic cigarettes [email or web address] Information not available 04/17/2023 What is your exercise level? Occasional [email or web address] Information not available 04/20/2020 Mental Status Question Answer Note LastModified by Organization D etails LastModified Time Do you feel stressed (tense, restless, nervous, or anxious, or unable to sleep at night)? [id number] Information not available 11/07/2021 Family History Relationship Description Onset Age of this Age Resolved Age Notes LastModified by Organization Details LastModified Time Maternal Grandmother Diabetes mellitus [email or web address] Not available 04/20 09:49:07 Mother Cyst of [...] ICD10 Code Diagnosis IMO Codes Diagnosis Note [id number] Tony Gordillo MD [place] [address] [address] 09/26/2025 15:36:27 09/26/2025 16:11:11 screening [id number] Z36.82 Z3A.13 [id number] Health Concerns Section Related Observation LastModified by Organization Detai ls LastModified Time None Recorded Concern Status LastModified by Organization Details LastModified Time None Recorded Payers Encounter Date Sequence Insurance Name Policy Number Policy Carbajal Covered Member ID Carbajla Member ID Guarantor Name 09/26/2025 1 *SELF PAY* Iam Cerda OBGyn Episode Ob Episode Information Episode Created Date Number of Fetuses Patient Bloodtype Patient rh Status Prepregnancy Weight lbs Domestic Partner Domestic Partner Phone Father Name Feeder Tender Status 09/29/20 25 1 A Positive Jamshid Porras OPEN Fetus Data First Name Last Name Admitted to NICU Weight (g) Sex Living Outcome Pediatric Complications Fetus ID Race Codes Race Delivery Type [id number] Problems Problem Notes Problem Name Start Date End Date Resolution Snomed Code Not e Mixed anxiety and depressive disorder 09/29/2025 [id number] celexa 40 Karl Calculation Initial Karl Date [...] Weight in lbs Pre/Post Dialysis Refused Weight 122.933855294244 BP Diastolic BP Location Tested BP Systolic [...]
--- OUTSIDE RECORDS SUMMARY | 2025-10-05 09:34 | XMS_ITS | Clinical Summary ---
Author Organization [facility] Address [address] [place] [address] Care Team Providers Care Supervisor General Name Role Phone Marce French MD Primary Care Provider [phone] Source Comments [facility],non-owned Affiliates and Associated Physician Practices is amultiple site organization consisting of ambulatory clinics and hospital sitesin [place], [place], [place] and [place]. This disclosure is being madepursuant to the Care Everywhere program and may not contain all information available regarding this patient. Last updated 18.[facility] Allergies Active Allergy Reactions Criticality Noted Date Comments Penicillins 08/26/2011 Sulfa Drugs 08/26/2011 Medications * Be aware that medications may not be up to date on this document. Alwaysverify current medications with the patient. ESTARYLLA 0.25-35 MG-MCG tablet Take 1 tablet by mouth once daily 06/03/2021 Active citalopram (CELEXA) 40 MG tablet Take 1 (one) tablet by mouth once daily 90 tablet 10/29/2021 Active hydrOXYzine hcl (ATARAX) 25 MG tablet Take 1 (one) tablet by mouth 2 times daily as needed (anxiety) 30 tablet 1 10/29/2021 Active Active Problems Problem Noted Date Diagnosed Date History of ovarian cysts 01/17/2021 Anxiety 11/23/2017 Assessment & Plan (11/23/2017 8:40 PM NOCTURNIST): Assessment: Has a history of depression and anxiety. Reports anxiety while admitted; severe enough to get one dose of Versed once on the floors. Has used Zoloft in the past, but has not been compliant recently because it made her sick. Plan: - Melatonin to help with sleep - follow up with PCP in regards to managing anxiety Depression 06/14/2015 Allergic rhinitis 08/26/2011 Resolved Problems Problem Noted Date Diagnosed Date Resolved Date Viral gastroenteritis 11/23/20172017 Assessment & Plan (11/23/2017 8:38 PM NOCTURNIST): Assessment: Emily Cerda is a 17 year old female who presents with 2 day hisory of vomiting and diarrhea now from an OSH with tachycardia and failed PO challenge. Most likely etiology is viral gastroenteritis since symptoms had an acute onset, associated with poor appetite and abdominal pain and patient is afebrile. Other etiologies to consider include ovarian torsion (not unilateral), pancreatitis (resolving abdominal pain), PID (no complaints), kidney stones (no hematuria, flank pain etc), gastric ulcer (acute onset) and choledocolithiasis/cholecystitis (history not consistent). With likely diagnosis being gastroenteritis, will treat as such, unless treatment not successful. Plan: Admit to Clinical Medicine - Dr. Alvarado - [facility] - NS w/KCl @ 90 mL/hr - Zofran 4mg q6 - VS q8 - Cardiac monitoring - regular diet - as tolerated - I/Os - spot check pulse ox Immunizations Immunization Administration Dates Next Due DTaP VACCINE IM (6wk-6yrs) 05/19/2006,,2001,10/26,2001 HEP A PEDS 2 DOSE 06/12/2015,06/15/2012 HEP B VACCINE, PED/ADOL 04/15/2002,2001, HIB BOOSTER 01/20/2003, 2,2001,08/21 Human Papilloma Virus Nineva lent Vaccine 02/18/2018 Human Papilloma Virus Cuauhtemoc valent Vaccine 06/12/2015 MENINGOCOCCAL ACWY (MCV4P) VAC IM 02/18/2018,02/2015 MMR 05/19/2006,06/23/2002 PNEUMOCOCCAL CONJ, PEDS 09/23/2002,12/28,2001,08/21 POLIO IPV 05/19/2006, 2,2001,08/21 PPD 05/19/2006,06/23/2002 TDAP (7yrs+) 06/15/2012 VARICELLA 09/23/2002 Family History Medical History Relation Name Comments Anxiety Disorder Father Diabetes - Type 2 Maternal Grandmother Relation Name Status Comments Father Maternal Grandmother Social History Tobacco Use Types Packs/Day Years Used Date Smoking Tobacco: Never Smokeless Tobacco: Never Alcohol Use Standard Drinks/Week Comments Yes 0 (1 standard drink = 0.6 oz pur e alcohol) socially, wine or beer Comments No Sex and Gender Information Value Date Recorded Sex Assigned at Not on file Legal Sex Female 5:41 AM NOCTURNIST Gender Identity Not on file Sexual Orientation Not on file Last Filed Vital Signs Vital Sign Reading Time Taken Comments Blood Pressure 113/65 01/17/2021 9:37 AM NOCTURNIST Pulse 88 01/17/2021 9:37 AM NOCTURNIST Temperature 36.2 C (97.2 F) 01/17/2021 9:37 AM NOCTURNIST Respiratory Rate 20 11/24/2017 8:30 AM NOCTURNIST Oxygen Saturation 97% 04/12/2020 4:00 PM CDT Inhaled Oxygen Concentration - - Weight 47.8 kg (105 lb 6.4 oz) 01/17/2021 9:37 A M NOCTURNIST Height 166.4 cm (5' 5.5) 01/17/2021 9:37 AM NOCTURNIST Body Mass Index 17.27 01/17/2021 9:37 AM NOCTURNIST Plan of Treatment Health Maintenance Due Date Last Done Comments CHLAMYDIA/GONORRHEA SCREENING 11/24/2018 11/24/2017 HEPATITIS C SCREENING 06/17/2019 DTAP/TDAP/TD VACCINES (7 - Td or Tdap) 06/15/2022 06/15/2012, 05/19/2006, 01/20/2003, Additional history exists DEPRESSION SCREENING 11/09/2024 COVID-19 VACCINE ( season) 2025 INFLUENZA VACCINE (#1) 2025 ZOSTER VACCINE (1 of 2) 2051 HEPATITIS B VACCINE Completed 04/15/2002, 2001, 2001 PNEUMOCOCCAL VACCINE Completed 09/23/2002, 2001, 2001, Additional history exists HIB VACCINE Completed 01/20/2003, 12/10, 2001, Additional history exists HIV SCREENING Completed 11/24/2017 HPV VACCINE Completed 02/18/2018, 06/12/2015 MENINGOCOCCAL GROUPS A/C/Y/W VACCINE Completed 02/18/2018, 06/12/2015 MENINGOCOCCAL (Group B) VACCINE SHARED DECISION-MAKING Aged Out No longer eligible based on patient's age to complete this topic Goals Goal Patient Goal Type Associated Problems Recent Progress Patient-Stated? Author Use safety retraint in car Lifestyle On track( 021 9:37 AM NOCTURNIST) Gwendolyn Alvarez RN Procedures Procedure Name Priority Date/Time Associated Diagnosis Comments CHLAMYDIA + GC AMPLIFIED PROBE Routine 11/24/2017 1:01 PM NOCTURNIST HIV-1 HIV-2 ANTIBODY + HIV P24 AG PANEL Routine 11/24/2017 11:48 AM NOCTURNIST from Last 3 Months or Most Recently Relevant to Health Maintenance Results * CHLAMYDIA + GC AMPLIFIED PROBE (11/24/2017 1:01 PM NOCTURNIST) Chlamydia Amplified Probe Negative Negative 11/25/2017 10:26 AM NOCTURNIST [facility] GC Amplified Probe Negative Negative 11/25/2017 10:26 AM NOCTURNIST [facility] Microbiology URINE / Unknown Collection / Unknown 11/24/2017 1:01 PM NOCTURNIST 11/24/2017 1:06 PM NOCTURNIST Narrative [facility] - 11/25/2017 10:26 AM NOCTURNIST This test was developed and its performance characteristics determined by the [facility], [facility]. Female urine specimens tested by the [facility] have not been cleared or approved by the U.S. Food and Drug Administration (FDA). The laboratory is regulated under the Clinical Laboratory Improvement Amendments (CLIA) as qualified to perform high-complexity testing. This test is used for clinical purposes. It should not be regarded as investigational or for research. Results based on detection/no detection of ribosomal RNA by amplified method. us Jasvir Meyers MD LAB - MICROBIOLOGY ORDERABLES Fi nal Result [facility] [address] [place] [address], [facility] [phone] * HIV-1 HIV-2 ANTIBODY + HIV P24 AG PANEL (11/24/2017 11:48 AM NOCTURNIST) HIV1/2 Ab + P24 Ag Non Reactive Non Reactive 11/24/2017 1:18 PM NOCTURNIST [facility] Blood BLOOD SPECIMEN / Unknown Venipuncture / Unknown 11/24/2017 11:48 AM NOCTURNIST 11/24/2017 12:10 PM NOCTURNIST Narrative [facility] - 11/24/2017 1:18 PM NOCTURNIST No Laboratory evidence of HIV infection. Jasvir Meyers MD LAB - CHEMISTRY ORDERABLES Final Result Performing Organization Address City/[facility]/ZIP Co de Phone Number [facility] [place] [address] from Last 3 Months or Most Recently Relevant to Health Maintenance Insurance AETNA AETNA * Guarantor: EMILY CERDA Account Type Relation to Patient Date of Phone Billing Address Personal/Family [address] [facility] [place] [address] Advance Directives * Full Code (Latest Code Status on File) Date Activated Date Inactivated Comments 11/23/2017 3:01 PM 11/24/2017 3:00 PM Care Teams Supervisor General Relationship Specialty Start Date End Date Marce French MD PCP - General Pediatrics 02/18/18
--- OUTSIDE RECORDS SUMMARY | 2025-10-05 09:34 | XMS_ITS | Encounter Summary ---
Author Organization [facility] Address [address] [place] [address] Care Team Providers Care Stock Preparation Supervisor Name Role Phone Maria Isabel Perla MD Unavailable Maria Isabel Perla MD Primary Care Provider [phone] Marce French MD Primary Care Provider [phone] Marce French MD Primary Care Provider [phone] Encounter Details Date Type Department Care Team (Late st Contact Info) Description 11/06/2012 [facility] Outpatient Visit CG DEFAULT [address] [place] [address] Unknown, Provider Social History Tobacco Use Types Packs/Day Years Used Date Smoking Tobacco: Never Assessed Comments Unknown Sex and Gender Information Value Date Recorded Sex Assigned at Not on file Legal Sex Female 5:41 AM STRIPE MARKER Gender Identity Not on file Sexual Orientation Not on file documented as of this encounter Plan of Treatment Not on file documented as of this encounter Visit Diagnoses Not on filedocumented in this encounter Care Teams Stock Preparation Supervisor Relationship Specialty Start Date End Date Maria Isabel Perla MD PCP - Pediatrics 09/27/09 12/09/17 Maria Isabel Perla MD PCP - General Pediatrics 06/03/12 02/22/14 Marce French MD PCP - General Pediatrics 02/23/14 12/09/17 Marce French MD PCP - General Pediatrics 02/18/18 documented as of this encounter
--- OUTSIDE RECORDS SUMMARY | 2025-10-05 09:34 | XMS_ITS | Continuity of Care Document ---
Author Organization [facility] Address [address] [place] [address] [place] [address] Care Team Providers Care Tie Layer Name Role Phone GEE OAKLEY Primary Care Provider [phone] MARTINEZ BARKER Primary Care Provider Assessment Encounter Date Assessment Date Assessment LastModified by Organization Details LastModified Time 07/27/2025 07/27/2025 Annual gynecological exam performed. Patient will come back in a year unless there are new symptoms. [email or web address] Not available 07/27/2025 11:06:06 Plan of Treatment [...] Not available Not available Not available Lab pregnan cy test, urine 2024 025 [id number], [address], [place], [address], 07/27/2025 11:49:28 urinaly sis, dipstic k 2024 025 [id number], [address], [place], [address], 07/27/2025 11:49:28 culture , urine 2024 025 [facility] (Lab), [address], [place], [address], 08/01/2025 15:41:45 urinaly sis, complet e 2024 025 [facility] (Lab), [address], [place], [address], 08/01/2025 15:41:42 beta-HC G, quantit ative, serum or plasma 2024 025 [facility] (Lab), [address], [place], [address], 08/01/2025 15:41:43 type + screen, blood 2024 025 [facility] (Lab), [address], [place], [address], 08/03/2025 04:05:01 pap, IG + reflex HPV if ASC-U - if hpv positiv e run subtypi ng 16, 18/45 add gc/chla m/trich 2024 025 [facility] (Lab), [address], [place], [address], 08/01/2025 15:41:44 unliste d lab - women's health swab, IRMA 2024 025 [facility] (Lab), [address], [place], [address], 08/01/2025 15:41:43 Referral None recorde d. Procedures None recorde d. Surgeries None recorde d. Imaging None recorde d. Medication Orders None recorde d. Patient TargetsNo targets recorded. Patient InstructionsNo instructions recorded. Reason for Referral None Reported. Results Created Date Observation Date Name Description Value Unit Range Abnormal Flag Note LastModifiedBy Organization Detail LastModifiedTime 07/27/2007/27/2025 URINA LYSIS , WITH MICRO SCOPI C color, urine Yellow Not Available [facility] (Lab) [address], [place], [address], 08/01/2025 15:41:42 07/27/20 25 07/27/2025 URINA LYSIS , WITH MICRO SCOPI C appearance, urine Turbid abnormal Not Available [facility] (Lab) [address], [place], [address], 08/01/2025 15:41:42 07/27/20 25 07/27/2025 URINA LYSIS , WITH MICRO SCOPI C specific gravity, urine 1.025 . 1.005- 1.030 Not Available [facility] (Lab) [address], [place], [address], 08/01/2025 15:41:42 07/27/20 25 07/27/2025 URINA LYSIS , WITH MICRO SCOPI C pH, urine 6.0 . 5.0-7. 0 Not Available [facility] (Lab) [address], [place], [address], 08/01/2025 15:41:42 07/27/20 25 07/27/2025 URINA LYSIS , WITH MICRO SCOPI C protein, UA 10 mg/dL negati ve, 10 , 20 Not Available [facility] (Lab) [address], [place], [address], 08/01/2025 15:41:42 07/27/20 25 07/27/2025 URINA LYSIS , WITH MICRO SCOPI C glucose, urine Normal mg/dL normal Not Available [facility] (Lab) [address], [place], [address], 08/01/2025 15:41:42 07/27/20 25 07/27/2025 URINA LYSIS , WITH MICRO SCOPI C ketones, urine Negati ve mg/dL negati ve Not Available [facility] (Lab) [address], [place], [address], 08/01/2025 15:41:42 07/27/20 25 07/27/2025 URINA LYSIS , WITH MICRO SCOPI C bilirubin, urine Negati ve negati ve Not Available [facility] (Lab) [address], [place], [address], 08/01/2025 15:41:42 07/27/20 25 07/27/2025 URINA LYSIS , WITH MICRO SCOPI C blood, urine 1+ negati ve abnormal Not Available [facility] (Lab) [address], [place], [address], 08/01/2025 15:41:42 07/27/20 25 07/27/2025 URINA LYSIS , WITH MICRO SCOPI C nitrite, urine 1+ negati ve abnormal Not Available [facility] (Lab) [address], [place], [address], 08/01/2025 15:41:42 07/27/20 25 07/27/2025 URINA LYSIS , WITH MICRO SCOPI C leukocyte esterase, urine Negati ve mary jane/u L negati ve Not Available [facility] (Lab) [address], [place], [address], 08/01/2025 15:41:42 07/27/20 25 07/27/2025 URINA LYSIS , WITH MICRO SCOPI C urobilinogen , urine Normal mg/dL normal Not Available [facility] (Lab) [address], [place], [address], 08/01/2025 15:41:42 07/27/20 25 07/27/2025 URINA LYSIS , WITH MICRO SCOPI C RBC, urine 3-5 /hpf 0-2 abnormal Not Available [facility] (Lab) [address], [place], [address], 08/01/2025 15:41:42 07/27/20 25 07/27/2025 URINA LYSIS , WITH MICRO SCOPI C WBC, urine 0-5 /hpf 0-5 Not Available [facility] (Lab) [address], [place], [address], 08/01/2025 15:41:42 07/27/2007/27/2025 URINA LYSIS , WITH MICRO SCOPI C bacteria, urine 1+ /hpf abnormal Not Available [facility] (Lab) [address], [place], [address], 08/01/2025 15:41:42 07/27/2007/27/2025 URINA LYSIS , WITH MICRO SCOPI C squamous epithelial cells, urine 6-10 /hpf Not Available [facility] (Lab) [address], [place], [address], 08/01/2025 15:41:42 07/27/2007/27/2025 BHCG, QUANT ITATI VE B-HCG 325.0 mIU/m L 0.0-4. 9 high This assay was perfo rmed using [employer] ratio n reage [...] Weeks 8,099 - 58,17 6 Not Available [facility] (Lab) [address] [place], [address], 08/01/2025 15:41:43 07/27/20 25 07/27/2025 WOMEN 'S [...] or negat rogelio statu s. Not Available [facility] (Lab) [address], [place], [address], 08/01/2025 15:41:43 07/27/20 25 07/27/2025 WOMEN 'S HEALT H SWAB, RIMA gloria species, tma Positi ve negati ve abnormal Not Available [facility] (Lab) [address] [place], [address], 08/01/2025 15:41:43 07/27/20 25 07/27/2025 WOMEN 'S HEALT H SWAB, IRMA gloria glabrata, tma Negati ve negati ve Not Available [facility] (Lab) [address] [place], [address], 08/01/2025 15:41:43 07/27/20 25 07/27/2025 WOMEN 'S HEALT H SWAB, IRMA trichomonas vaginalis, tma Negati ve negati ve This assay tests for and diffe renti ates betwe en Nicole da glabr radha, the Nicole da speci es group (C. albic ans, C. tropi calis , C. parap onel is, C. dubli ni is), and Trich omona s vagin solo by Trans cript ion-M ediat ed Ampli ficat ion (TMA) . Not Available [facility] (Lab) [address], [place], [address], 08/01/2025 15:41:43 07/27/20 25 07/27/2025 IMAGE GUIDE D PAP, REFLE X HPV IF ASCUS ONLY image guided Pap, reflex HPV ASCUS only SEE RESULT S BELOW CASE REPOR T: Cytol ogy Gynec ologi bandar Repor t Case: [id number] Autho rilori g Provi lynn: Johanna Manzano, ALEJANDRO Cope cted: 07/27 1138 Order ing Locat ion: [place] Patho dominique Recei marija: 07/28 0937 First Scree n: Sohail Tomlinson CT Speci men: Shital corral Pap - Image d, Cervi x STATE MENT OF ADEQU ACY: Satis facto ry for evalu ation Trans forma tion zone compo nent prese nt ----- ----- ----- ----- ----- ----- ----- ----- ----- ----- ----- ----- ----- ----- ----- ----- ----- ---- FINAL DIAGN OSIS: Negat rogelio for Intra epith elial Colleen salazar or Carmina adhikari (NIL) . Elect ir[place] day d by Sohail Tomlinson, CT on 2024 [...] Thinp rep Imagi ng Syste m. CLINI BANDAR INFOR MATIO N: Menst rual Statu s: LMP (if appli cable ): Clini bandar Histo ry/Pr eviou s Pap: Type of Neopl kassidy (if appli cable ): Signi fican t Clini bandar Findi ngs: Other Histo ry: Hormo radha [...] ng do not corre late with physi bandar and/o r histo rical findi ngs, furth er inves tigat ion is recom evelyn d, as clini victoriano barajas nted. Not Available [facility] (Lab) [address], [place], [address], 08/01/2025 15:41:44 07/27/20 25 07/27/2025 CULTU RE: URINE result report SEE RESULT S BELOW Test: Cultu re: Urine Speci men Sourc e: Urine - Clean Catch Speci men Type: Urine Speci men Date: 2024 1138 Resul t Date: 20249 Resul t Statu s: Final resul t Abnor mal: No Resul ting Lab: [facility] [address] [facility] [address] Tel: CULTU RE ----- ----- ----- --- Cultu re resul t (>=3 organ isms prese nt) indic ates possi ble conta minat ion. Repea t cultu re if sympt oms indic ate. Not Available [facility] (Lab) [address], [place], [address], 08/01/2025 15:41:45 07/27/20 25 07/27/2025 urina lysis , dipst ick Nitrite + Not Available [facility] [address], [place], [address], 07/27/2025 11:42:44 07/27/20 25 07/27/2025 urina lysis , dipst ick Protein + Not Available [facility] [address], [place], [address], 07/27/2025 11:42:44 07/27/20 25 07/27/2025 urina lysis , dipst ick pH 6 Not Available [facility] [address], [place], [address], 07/27/2025 11:42:44 07/27/20 25 07/27/2025 urina lysis , dipst ick Blood +++ Not Available [facility] [address], [place], [address], 07/27/2025 11:42:44 07/27/20 25 07/27/2025 urina lysis , dipst ick Specific [place] 1.025 Not Available [facility] [address], [place], [address], 07/27/2025 11:42:44 07/27/20 25 07/27/2025 urina lysis , dipst ick Glucose + Not Available [facility] [address], [place], [address], 07/27/2025 11:42:44 07/27/20 25 07/27/2025 pregn navjot test, urine HCG positi ve Not Available [facility] [address], [place], [address], 07/27/2025 11:42:37 Result Notes None recorded. Problems Name Problem SNOMED Code Status Onset Date Resolution Date Notes Provider Name and Address Organization Details Recorded Time Abnormal cervical Papanico laou smear 517318356 Active repap postpart um Suellen Mccoy [facility] 3 16:14:24 Electron ic cigarett e user [id number] Active quit [facility] 3 16:14:24 Abnormal cervical Papanico laou smear 990701234 Com[facility] 3 16:14:24 Electron ic cigarett e user [id number] Completed quit [facility] 3 16:14:24 Mixed anxiety and depressi ve disorder 907257735 Completed Celexa 40mg. 2/7 - hydroxyz ine as needed [facility] 3 16:14:24 Acute vaginiti s 25386374 Completed 201511/06/2021 Acute vaginiti s;Record ed Elsewher e: No Locat ion: [facility] S ource: EHR Captain Waiter/Waitress juan: N Practi ce ID: 0001 Tony lable Time: 02:45:00 PM Beth Kay [facility] 1 17:35:58 Syphilis test finding 396524262 Completed 201511/06/2021 Encntr screen for infectio ns w sexl mode of transmis s;Practi ce ID: 0001 Beth Kay [facility] 17:36:26 Infectio n screenin g Completed 201511/06/2021 Encounte r for screenin g for oth infec/pa rastc diseases ;Practic e ID: 0001 Beth escudero [facility] 17:36:[address] Concept Completed 201511/06/2021 Encntr for routine child health exam w/o abnormal findings ;Recorde d Elsewher e: No [facility]: EHR Captain Waiter/Waitress juan: N Practi ce ID: 0001 Tony lable Time: 02:45:00 PM Beth escudero, [facility] 17:36:21 Finding of regulari ty of menstrua l cycle Completed 201511/06/2021 Irregula r menstrua tion, unspecif ied;Prac yvonne ID: 0001 Beth Kay [facility] 17:36:09 Pregnanc y test negative 942064892 Completed 201511/06/2021 Encounte r for pregnanc y test, result negative ;Practic e ID: 0001 Beth Kay [facility] 17:36:17 Finding of general energy 967366699 Completed 201511/06/2021 Other fatigue; Recorded Elsewher e: No [facility]: EHR Captain Waiter/Waitress juan: N Practi ce ID: 0001 Tony lable Time: 01:15:00 PM Beth Kay [facility] 17:36:07 Finding of defecati on Completed 201511/06/2021 Constipa tion, unspecif ied;Prac yvonne ID: 0001 Beth Kay [facility] 17:36:06 Procedur e by method Completed 201611/06/2021 Encounte r for other general counseli ng and advice on contrace ption;Re corded Elsewher e: No Locat ion: [facility] S ource: EHR Captain Waiter/Waitress juan: N Practi ce ID: 0001 Tony lable Time: 09:45:00 AM Beth Kay [facility] 17:36:04 Procedur e Completed 201611/06/2021 Enctr srvlnc implanta ble subderma l contrace ptive;Pr actice ID: 0001 Beth Kay [facility] 17:36:[address] Concept Completed 201611/06/2021 Encounte r for surveill ance of other contrace ptives;R ecorded Elsewher e: No Locat ion: [facility] S ource: EHR Captain Waiter/Waitress juan: N Practi ce ID: 0001 Tony lable Time: 02:45:00 PM Beth Kay [facility] 17:36:24 Finding of sensatio n of breast Completed 201711/06/2021 Mastodyn ia;Pract ice ID: 0001 Beth Kay [facility] 17:36:11 Pelvic and perineal pain 606368554 Completed 201711/06/2021 Pelvic and perineal pain;Pra ctice ID: 0001 Beth Kay [facility] 17:36:16 Nausea 644354876 Completed 201711/06/2021 Nausea;P ractice ID: 0001 Beth Kay [facility] 17:36:14 Urinary tract infectio us disease 70471540 Completed 201811/06/2021 Urinary tract infectio n, site not specifie d;Practi ce ID: 0001 Beth Kay [facility] 17:36:27 Lesion of ovary Completed 201811/06/2021 Other ovarian cyst, left side;Rec orded Elsewher e: No Locat ion: [facility] S ource: EHR Captain Waiter/Waitress juan: N Practi ce ID: 0001 Tony lable Time: 04:30:00 PM Beth escudero, [facility] 17:36:02 Disorder of breast 93004888 Completed 201811/06/2021 Disorder of breast, unspecif ied;Prac yvonne ID: 0001 Beth escudero, [facility] 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 17:36:22 Pregnanc y 30021555 Completed 202104/24/2023 Estrella Murphy [facility], [facility] 5 09:55:37 COVID-19 133270109 Completed 2022 ASA & serial growth Suellen Mccoy [facility], [facility] 3 16:14:24 Anemia 427686295 Completed 2022 1 tab BID slowfe daily Suellen Mccoy [facility], [facility] 3 16:14:24 Mixed anxiety and depressi ve disorder 040673957 Active 2024 celexa 40 Tony Gordillo MD [address], [place], [address], [facility] 5 10:27:37 Pregnanc y 71153966 Active 2024 Estrella Murphy [facility], [facility] 5 09:55:37 Mixed anxiety and depressi ve disorder 766934944 Active 2024 celexa 40 Tony Gordillo MD [address], [place], [address], [facility] 5 10:27:37 Problem Notes None recorded. Procedures Surgical History Date Name Laterality Status Provider Name and Address Organization Details Recorded Time 5 Date of Last Pap Smear completed Estrella Murphy [facility] 09/29/2025 09:49:51 0 extraction of wisdom tooth completed Dasia Black [facility] 05/08/2020 09:45:39 Imaging Results None recorded. Procedure Notes None recorded. Medical Equipment None Reported. Allergies Allergen ID Allergen Name Allergen Category Reaction Reaction Severity Criticality Documentation Date Start Date Code Code System Note Provider Name and Address Organization Details Recorded Time 972 Product containin g penicilli n (product) medicatio n Not available Not available Not available 04/20/2020 47493 8001 SNOMED Dasia escudero, [facility] 0 09:47:26 973 Substance with sulfonami de structure and antibacte rial mechanism of action (substanc e) medicatio n Not available Not available Not available 04/20/2020 83259 8003 SNOMED Dasia Black [facility] 0 09:47:36 Medications Name Sig Start [...] Prescrib ed Elsewher e: No Locat ion: [facility] odify By: jen anderson DateTime : [...] ed Elsewher e: No Locat ion: [facility] odify By: ayan Young ncounter DateTime : [...] ed Elsewher e: Yes Loca tion: [facility] odify By: emernst Encounte r DateTime : 06/02/20 16 02:45:00 PM [...] remove for 1 week 03/03 completed Prescrib tsering Elsewher e: No Locat ion: [facility] odify By: cristiano Murdock r DateTime : 10/13/20 16 01:15:00 PM Not Available Not Available Not Available Zithromax 500 mg tablet take 2 tablet by oral route once 07/29 completed Prescrib tsering Elsewher e: No Locat ion: [facility] odify By: jen Murdock r DateTime : [...] Prescrib ed Elsewher e: No Locat ion: [facility] odify By: jen anderson DateTime : 06/02/20 16 02:45:00 PM [...] Prescrib ed Elsewher e: No Locat ion: [facility] odify By: cristiano anderson DateTime : 09/15/20 16 10:30:00 AM Not Available Not Available Not Available Estarylla 0.25 mg-0.035 mg tablet TAKE 1 TABLET BY MOUTH EVERY DAY 09/01 completed Not Available Not Available Not Available June 24 08/10 completed Not Available Not Available [...] Updated DateTime 07/27/2025 162.56 cm 19.2 kg/m2 08027.35 g 103/66 mm[Hg] Sofia Mazariegos [place] - [facility] 07/27/2025 11:06:49 Social History Question Answer Notes LastModified by Organizat ion Details LastModified Time Tobacco Smoking Status Former Smoker Zee Arita [facility] 04/17/2023 10:55:29 Do You Have An [...] Or Recreational Drugs Have You Used? None [email or web address] Information not available 04/17/2023 What Is The Highest Grade Or Level Of School You Have Completed Or The Highest Degree You Have Received? [id number] [email or web address] Information not available 09/29/2025 Are There Any Guns Present In Your Home? No Information not available 03/04/2021 What Was The Date Of Your Most Recent Tobacco Screening? 06/12/2020 [email or web address] Information not available 04/17/2023 Do You Use Protection During Sex? No Information not available 03/04/2021 Do You Use Your Seat Belt Or Car Seat Routinely? Yes Information not available 03/04/2021 Are You Sexually Active? Yes [email or web address] Information not available 08/22/2025 Do You Have Smoke And Carbon Monoxide Detectors In Your Home? Yes Information not available 03/04/2021 How Much Tobacco Do You Smoke? No [email or web address] Information not available 06/12/2020 Do You Use Sunscreen Routinely? Yes Information not available 03/04/2021 How Many Years Have You Smoked Tobacco? 0 Information not available 03/04/2021 Have You Used IV Drugs? No Information not available 03/04/2021 Do You Have Difficulty Walking Or Climbing Stairs? No [email or web address] Information not available 08/22/2025 Sex: Unknown Functional Status Question Answer Note LastModified by Organizat ion Details LastModified Time Do you use any illicit or recreational drugs? No Information not available 03/04/2021 What is your level of alcohol consumption? None Information not available 09/29/2025 Do you or have you ever used smokeless tobacco? Currently uses moist powdered tobacco [email or web address] Information not available 04/17/2023 Are you currently employed? Yes [email or web address] Information not available 08/22/2025 Are you able to walk independently without assistance or assistive devices? [email or web address] Information not available 03/04/2021 Are you able to care for yourself independently? 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 No [email or web address] Information not available 08/22/2025 Do you or have you ever used e-cigarettes or vape? Current user of electronic cigarettes [email or web address] Information not available 04/17/2023 What is your exercise level? Occasional [email or web address] Information not available 04/20/2020 Mental Status Question Answer Note LastModified by Organization D etails LastModified Time Do you feel stressed (tense, restless, nervous, or anxious, or unable to sleep at night)? [id number] Information not available 11/07/2021 Family History Relationship Description Onset Age of this Age Resolved Age Notes LastModified by Organization Details LastModified Time Maternal Grandmother Diabetes mellitus [email or web address] Not available 04/20 09:49:07 Mother Cyst of [...] ICD10 Code Diagnosis IMO Codes Diagnosis Note [id number] AFSHIN Ross [facility] [address] [address] 07/27/2025 10:50:51 07/27/2025 14:18:17 Urinary symptoms 887229104 R39.9 19349 Ua done, cx sentvagini tis panel sentSTI screen declined Gynecologi c examination 96806223 Z01.938 [id number] WWEPap - done todaySTI screen - declinedRo [...] dietary consult advised. Questions answered. test positive 082640053 Z32.01 225646 UPT (+) todaydiscu ssed result with ptencourag ed daily PNVlabs ordered, will update pt with results when availablep recautions discussed Time spent in visit is a total of 45 mins with at least 50% of visit consisting of counseling and review of plan of care. Vaginal discharge 768891 006 N89.8 07972 Health Concerns Section Related Observation LastModified by Organization Detai ls LastModified Time None Recorded Concern Status LastModified by Organization Details LastModified Time None Recorded Payers Encounter Date Sequence Insurance Name Policy Number Policy Carbajal Covered Member ID Carbajal Member ID Guarantor Name 07/27/2025 1 [place] [facility] Emily Cerda [id number] Emily Cerda OBGyn Episode Ob Episode Information Episode Created Date Number of Fetuses Patient Bloodtype Patient rh Status Prepregnancy Weight lbs Domestic Partner Domestic Partner Phone Father Name Sign Installer Status 09/29/20 25 1 A Positive Jamshid Porras OPEN Fetus Data First Name Last Name Admitted to NICU Weight (g) Sex Living Outcome Pediatric Complications Fetus ID Race Codes Race Delivery Type [id number] Problems Problem Notes Problem Name Start Date End Date Resolution Snomed Code Not e Mixed anxiety and depressive disorder 09/29/2025 [id number] celexa 40 Karl Calculation Initial Karl Date [...] Weight in lbs Pre/Post Dialysis Refused Weight 122.841833210418 BP Diastolic BP Location Tested BP Systolic [...]
[2025-10-05 09:40] VITALS: BP 114/70; PULSE 85; RESP 18; TEMP 36.8; O2SAT 100
--- OUTSIDE RECORDS SUMMARY | 2025-10-05 10:38 | XMS_ITS | Clinical Summary ---
Author Organization [facility] Address [address] [place] [address] Care Team Providers Care Install Technician Name Role Phone Marce French MD Primary Care Provider [phone] Source Comments [facility],non-owned Affiliates and Associated Physician Practices is amultiple site organization consisting of ambulatory clinics and hospital sitesin [place], [place], [place] and [place]. This disclosure is being madepursuant to the Care Everywhere program and may not contain all information available regarding this patient. Last updated 18.[facility] Allergies Active Allergy Reactions Criticality Noted Date [...] 11/23/2017 Assessment & Plan (11/23/2017 8:40 PM REMOTE MEDICAL CODER): Assessment: Has a history of depression and [...] 11/23/20172017 Assessment & Plan (11/23/2017 8:38 PM REMOTE MEDICAL CODER): Assessment: Emily Cerda is a 17 year [...] to Clinical Medicine - Dr. Alvarado - [facility] - NS w/KCl @ 90 mL/hr [...] on file Legal Sex Female 5:41 AM REMOTE MEDICAL CODER Gender Identity Not on file Sexual Orientation Not on file Last Filed Vital Signs Vital Sign Reading Time Taken Comments Blood Pressure 113/65 01/17/2021 9:37 AM REMOTE MEDICAL CODER Pulse 88 01/17/2021 9:37 AM REMOTE MEDICAL CODER Temperature 36.2 C (97.2 F) 01/17/2021 9:37 AM REMOTE MEDICAL CODER Respiratory Rate 20 11/24/2017 8:30 AM REMOTE MEDICAL CODER Oxygen Saturation 97% 04/12/2020 4:00 PM CDT Inhaled Oxygen Concentration - - Weight 47.8 kg (105 lb 6.4 oz) 01/17/2021 9:37 A M REMOTE MEDICAL CODER Height 166.4 cm (5' 5.5) 01/17/2021 9:37 AM REMOTE MEDICAL CODER Body Mass Index 17.27 01/17/2021 9:37 AM REMOTE MEDICAL CODER Plan of Treatment Health Maintenance Due Date [...] car Lifestyle On track( 021 9:37 AM REMOTE MEDICAL CODER) Gwendolny Alvarez RN Procedures Procedure Name Priority Date/Time Associated Diagnosis Comments CHLAMYDIA + GC AMPLIFIED PROBE Routine 11/24/2017 1:01 PM REMOTE MEDICAL CODER HIV-1 HIV-2 ANTIBODY + HIV P24 AG PANEL Routine 11/24/2017 11:48 AM REMOTE MEDICAL CODER from Last 3 Months or Most Recently Relevant to Health Maintenance Results * CHLAMYDIA + GC AMPLIFIED PROBE (11/24/2017 1:01 PM REMOTE MEDICAL CODER) Chlamydia Amplified Probe Negative Negative 11/25/2017 10:26 AM REMOTE MEDICAL CODER [facility] GC Amplified Probe Negative Negative 11/25/2017 10:26 AM REMOTE MEDICAL CODER [facility] Microbiology URINE / Unknown Collection / Unknown 11/24/2017 1:01 PM REMOTE MEDICAL CODER 11/24/2017 1:06 PM REMOTE MEDICAL CODER Narrative [facility] - 11/25/2017 10:26 AM REMOTE MEDICAL CODER This test was developed and its performance characteristics determined by the [facility], [facility]. Female urine specimens tested by the [facility] have not been cleared or approved by [...] LAB - MICROBIOLOGY ORDERABLES Fi nal Result [facility] [address] [place] [address], [facility] [phone] * HIV-1 HIV-2 ANTIBODY + HIV P24 AG PANEL (11/24/2017 11:48 AM REMOTE MEDICAL CODER) HIV1/2 Ab + P24 Ag Non Reactive Non Reactive 11/24/2017 1:18 PM REMOTE MEDICAL CODER [facility] Blood BLOOD SPECIMEN / Unknown Venipuncture / Unknown 11/24/2017 11:48 AM REMOTE MEDICAL CODER 11/24/2017 12:10 PM REMOTE MEDICAL CODER Narrative [facility] - 11/24/2017 1:18 PM REMOTE MEDICAL CODER No Laboratory evidence of HIV infection. Jasvir Meyers MD LAB - CHEMISTRY ORDERABLES Final Result Performing Organization Address City/[facility]/ZIP Co de Phone Number [facility] [place] [address] from Last 3 Months or Most Recently Relevant to Health Maintenance Insurance AETNA AETNA * Guarantor: EMILY CERDA Account Type Relation to Patient Date of Phone Billing Address Personal/Family [address] [employer] [place] [address] Advance Directives * Full Code (Latest Code Status on File) Date Activated Date Inactivated Comments 11/23/2017 3:01 PM 11/24/2017 3:00 PM Care Teams Install Technician Relationship Specialty Start Date End Date Marce French MD PCP - General Pediatrics 02/18/18
--- OUTSIDE RECORDS SUMMARY | 2025-10-05 10:38 | XMS_ITS | Encounter Summary ---
Author Organization [facility] [address] [place] [address] Care Team Providers Care Electronics Parts Sales Representative Name Role Phone Marce French MD Primary Care Provider [phone] Reason for Visit * Reason Onset Date Comments Refill Request 01/27/2020 Encounter Details Date Type Department Care Team (Late st Contact Info) Description 01/27/2020 Refill [facility] [address], [address] [place] [address] Marce French MD [address] [facility] [address] [address] Refill Request Social History Tobacco Use Types Packs/Day Years Used Date Smoking Tobacco: Never Smokeless Tobacco: Never Alcohol Use Standard Drinks/Week Comments Not Asked 0 (1 standard drink = 0.6 oz pur e alcohol) Comments No Sex and Gender Information Value Date Recorded Sex Assigned at Not on file Legal Sex Female 5:41 AM FORM SETTER/DRIVER Gender Identity Not on file Sexual Orientation [...] car Lifestyle On track( 021 9:37 AM FORM SETTER/DRIVER) No Gwendolyn Cosme RN documented as of this encounter Visit Diagnoses Not on filedocumented in this encounter Care Teams Electronics Parts Sales Representative Relationship Specialty Start Date End Date Marce French MD PCP - General Pediatrics 02/18/18 documented as of this encounter
--- NOTE | 2025-10-05 11:03 | ED.BACK ---
HPI - Back Pain/Injury General Chief Complaint: Back Pain/Injury Stated Complaint: upper rib pain X4 days Time Seen by Provider: 10/05/25 09:48 Source: patient Mode of arrival: ambulatory Limitations: no limitations History of Present Illness HPI Narrative: Patient is a 25-year-old female who presents the ED with report of left-sided rib pain. Patient reports she has been sick since last week with cough, congestion which, sinus issues. She began having pain throughout her left ribs on Thursday which has been persistent since then. Reports pain is worse with movement, coughing, deep breathing. Improved with certain positions. Has been taking Tylenol without much improvement. Patient denies any recent fevers, denies feeling short of breath. She is currently 14 weeks gestation. Has been evaluated for this and had normal ultrasounds. Denies abdominal pain or vaginal bleeding. Related Data Home Medications ?Medication ?Instructions ?Recorded ?Confirmed ?Last Taken ?Type hydroxyzine HCl 10 mg tablet 10 mg PO DAILY 03/31/23 07/03/25 1 Day Ago History ~03/30/23 Allergies Allergy/AdvReac Type Severity Reaction Status Date / Time Sulfa (Sulfonamide Allergy Unknown Other Verified 07/03/25 15:48 Antibiotics) Penicillins AdvReac Intermediate Unknown Verified 07/03/25 15:48 Review of Systems Review of Systems: All systems reviewed & are unremarkable except as noted in HPI. All systems reviewed & are unremarkable except as noted in HPI and below PMFSH Past Medical History Medical History Gastritis Ovarian cyst Anxiety Depression Surgical History Surgical History No pertinent past surgical history Family History Family History Sibling Attention deficit disorder Diabetes mellitus Grandparent Diabetes mellitus Acute myocardial infarction Cerebrovascular accident Father Alcohol abuse Social History Social History Smoking status: Former smoker Tobacco type: cigarettes and e-cigarettes/vaping Alcohol intake: former Substance use: never Substance use type: does not use Lack of Transportation: No Lack of Food: Never True Current Housing: I Have Housing Concerned About Future Housing: No Difficulty Paying Gas/Electric Bills: No Difficulty Paying for Meds: No Currently Unemployed: No Education: High School Diploma/GED Difficulty w/ Childcare or Family Care: No Living arrangements: with family Gender identity (if verbalized by the patient): Female Spiritual care concerns: No Exam Narrative: GENERAL: Well appearing, thin, non-toxic, in no acute distress. HEAD: Normocephalic, atraumatic. ENT: Nasal quality to voice RESPIRATORY: Airway patent, respirations nonlabored. Clear to auscultation bilaterally, no rales, rhonchi, wheezing. Lung sounds equal flower CARDIOVASCULAR: Regular rate and rhythm without murmurs, rubs, or gallops. MUSCULOSKELETAL: Moves all extremities. No gross deformities. TTP along L anterolateral chest wall, wrapping around rib cage to L upper back. Reproduces pain. No palpable bony deformities. SKIN: Warm, dry, normal color. NEURO: A&O X3. Speech clear. Cranial nerves II-XII grossly intact. Steady gait. No ataxic movements. PSYCHIATRIC: Appropriate mood and affect. Normal interaction. Course Vital Signs Vital signs: Vital Signs Temperature 98.2 F 10/05/25 09:40 Pulse Rate 85 10/05/25 09:40 Respiratory Rate 18 10/05/25 09:40 Blood Pressure 114/70 10/05/25 09:40 Pulse Oximetry 100 10/05/25 09:40 Oxygen Delivery Room Air 10/05/25 09:40 Temperature 98.2 F 10/05/25 09:40 Pulse Rate 85 10/05/25 09:40 Respiratory Rate 18 10/05/25 09:40 Blood Pressure 114/70 10/05/25 09:40 Pulse Oximetry 100 10/05/25 09:40 Oxygen Delivery Room Air 10/05/25 09:40 MDM - Back Pain/Injury MDM Narrative Medical decision making narrative: Patient presented to ED with left-sided chest wall/rib pain. Recent URI. Vital signs stable upon arrival. Oxygen 100% on room air. Denies feeling short of breath. Patient is afebrile. Currently 14 weeks gestation. Denies abdominal pain or vaginal bleeding. Discussed symptoms seem most consistent with pleurisy picture/URI. Discussed obtaining chest x-ray to rule out infectious etiology. Patient is agreeable to this. Chest x-ray is clear. Viral swabs negative. Discussed further pain control. Unfortunately options are limited in . Advised to continue Tylenol, ice. Will prescribe lidocaine patches Patient advised to follow-up with her primary care doctor for further evaluation. Given strict return precautions. She agrees with plan. Discharged in stable condition. Medical Records Attestation: I reviewed the patient's medical records. Lab Data Attestation: I reviewed the patient's lab results. Labs: Lab Results 10/05/25 Range/Units 11:11 Influenza A (RT-PCR) Negative (Negative) Influenza B (RT-PCR) Negative (Negative) RSV (RT-PCR) Negative (Negative) SARS-CoV-2 RNA (RT-PCR) Negative (Negative) Imaging Data Attestation: I personally reviewed and interpreted this imaging study as follows: Radiologist's impression: ITS Impressions Chest X-Ray 10/05/25 10:49 Impression: No acute cardiopulmonary abnormality. Discharge Plan Discharge Clinical Impression: Left-sided chest wall pain, 14 weeks gestation of Upper respiratory infection Qualifiers: URI type: unspecified URI Qualified Code(s): J06.9 - Acute upper respiratory infection, unspecified Patient Disposition: Home Condition: Stable Instructions: Antibiotic Form, Pleurisy (ED), Upper Respiratory Infection (ED), Chest Wall Pain (ED) Additional Instructions: Your chest x-ray here was clear. There was no signs of pneumonia. You tested negative for COVID, RSV, influenza. You likely have inflammation of your lung lining and chest wall. This should improve on its own. Continue Tylenol as needed for pain. You may use ice/heat to areas of pain. Recommend lidocaine patches to areas of pain. Follow-up with your primary care doctor for further evaluation. Return to the ED for new or worsening concerns, shortness of breath, unable to keep down food or drink, abdominal pain, vaginal bleeding, persistent fevers, or any other symptoms of concern. Patient Language: Nigerien Prescriptions: New lidocaine 5 % adhesive patch,medicated 1 patch topical DAILY Qty: 15 0RF Rx Instructions: leave on most painful area for up to 12 hrs No Action hydroxyzine HCl 10 mg tablet 10 mg PO DAILY citalopram 40 mg tablet See Rx Instructions .ROUTE .COMPLEX Qty: 90 0RF Dose Instruction: TAKE 1 TABLET BY MOUTH DAILY Rx Instructions: TAKE 1 TABLET BY MOUTH DAILY Follow-up/Referrals: Josh Friedman MD [Primary Care Provider, [facility]] Time of Disposition: 12:05
[2025-10-05] MEDS: LIDOCAINE 5% PATCH 1 PATCH TRANSDERM (11:10)
[2025-10-05 11:52] LABS: Influenza A QL RT-PCR Negative (Negative); Influenza B QL RT-PCR Negative (Negative); RSV RNA, RT-PCR Negative (Negative); SARS-CoV-2 RNA PCR Negative (Negative)
== END 2025-10-05 12:20 | disposition home or self-care (01) ==
PROVIDERS: Emergency Provider Physician Assistant; PCP Family Medicine
DX: O99.512 Diseases of the respiratory system complicating pregnancy, second trimester (principal); J06.9 Acute upper respiratory infection, unspecified; Z20.822 Contact with and (suspected) exposure to COVID-19; Z87.891 Personal history of nicotine dependence
CPT/HCPCS: 71046; 87637; 99283; A9270